=== PATIENT | male | born 1955 | race Hispanic/Latino ===

== ENCOUNTER 2016-08-15 14:23 | Inpatient (IN) | payer MEDICARE, OTHER ==
--- NOTE | 2016-08-15 15:02 | ED PDOC ---
HPI: Psych/Substance Abuse Time Seen by Provider: 08/15/16 14:42 Chief Complaint (Nursing): Psychiatric Evaluation Chief Complaint (Provider): Psychiatric Evaluation History Per: Patient History/Exam Limitations: no limitations Onset/Duration Of Symptoms: Days Current Symptoms Are (Timing): Still Present Suicide/Self Injury Attempted (Context): None Modifying Factor(s): None Associated Symptoms: Agitation Additional Complaint(s): Patent is a 61 year old male with a history of cirrhosis, referred to ED from [facility] for increased confusion and agitation. Patient has had medication adjusted by psychiatry but no improvement. In ED patient notes abdominal pain with distention but denies nausea, vomiting or fever. Past Medical History Reviewed: Historical Data, Nursing Documentation, Vital Signs Vital Signs: Last Vital Signs Temp 98.2 F 08/15/16 14:35 Pulse 76 08/15/16 14:35 Resp 20 08/15/16 14:35 BP 140/68 08/15/16 14:35 Pulse Ox 98 08/15/16 14:35 - Medical History PMH: Alzheimer's Disease, Anemia, Asthma, Bipolar Disorder, CAD, COPD, Diabetes , Fractures (Nasal Bone), Gall Bladder Disease, HTN, Hypercholesterolemia, Hypothyroidism, Paranoia, Chronic Kidney Disease (STAGE 2), Schizophrenia, Seizures - Surgical History Surgical History: Endoscopy - Family History Family History: States: Unknown Family Hx - Living Arrangements Living Arrangements: With Family - Immunization History Hx Tetanus Toxoid Vaccination: Yes Hx Influenza Vaccination: No Hx Pneumococcal Vaccination: No - Home Medications Home Medications: Ambulatory Orders Medication Instructions Recorded Fluticasone/Salmeterol 250/50 1 puff IH Q12 11/18/14 [Advair Diskus] Levothyroxine [Levoxyl] 0.025 mg PO DAILY 11/18/14 Welton Carbonate [Welton 300 mg PO HS 11/18/14 Carbonate 300MG] Propranolol HCl [Propranolol HCl] 10 mg PO BID 11/18/14 Rivastigmine [Exelon] 13.3 mg TD DAILY 11/18/14 Silodosin [Rapaflo] 8 mg PO DAILY 11/18/14 Spironolactone 25 mg PO DAILY 12/31/14 Aspirin [Ecotrin] 81 mg PO DAILY 05/08/16 Benztropine [Benztropine Mesylate] 0.5 mg PO DAILY 05/08/16 Furosemide [Lasix] 20 mg PO DAILY 05/08/16 Glimepiride [amaRYL] 2 mg PO DAILY 05/08/16 Lactulose 10 gm PO BID 05/08/16 Naproxen [Naprosyn] 1 tab PO BID PRN #25 tab 05/08/16 Thiamine [Vitamin B-1] 100 mg PO DAILY 05/08/16 risperiDONE [RisperDAL] 2 mg PO DAILY 05/08/16 Furosemide [Lasix] 20 mg PO DAILY #7 tab 07/03/16 Sulfamethoxazole/Trimethoprim 1 tab PO BID #14 tab 07/03/16 [Bactrim DS 800 mg-160 mg] - Allergies Allergies/Adverse Reactions: Allergies Allergy/AdvReac Type Severity Reaction Status Date / Time atorvastatin calcium Allergy Verified 05/08/16 11:34 [From Lipitor] levofloxacin [From Levaquin] Allergy Verified 05/08/16 11:34 Review of Systems ROS Statement: Except As Marked, All Systems Reviewed And Found Negative Constitutional: Negative for: Fever, Chills Cardiovascular: Negative for: Chest Pain Respiratory: Negative for: Shortness of Breath Gastrointestinal: Positive for: Abdominal Pain. Negative for: Nausea, Vomiting , Diarrhea Neurological: Negative for: Weakness Physical Exam - Reviewed Nursing Documentation Reviewed: Yes Vital Signs Reviewed: Yes - Physical Exam Appears: Positive for: Non-toxic, No Acute Distress Skin: Positive for: Normal Color, Warm Eye Exam: Positive for: Normal appearance Neck: Positive for: Normal, Painless ROM Cardiovascular/Chest: Positive for: Regular Rate, Rhythm. Negative for: Murmur Respiratory: Positive for: Normal Breath Sounds. Negative for: Respiratory Distress Gastrointestinal/Abdominal: Positive for: Bowel Sounds, Distended, Hernia ( umbilical hernia easily reducible ). Negative for: Tenderness Back: Positive for: Normal Inspection Extremity: Positive for: Normal ROM Neurologic/Psych: Positive for: Alert, Oriented - Laboratory Results Result Diagrams: 08/15/16 15:43 08/15/16 15:43 - ECG O2 Sat by Pulse Oximetry: 98 (RA) Pulse Ox Interpretation: Normal Medical Decision Making Medical Decision Making: Time: 1455 Initial impression: Psychiatric evaluation Initial plan: -- EKG -- Alcohol serum -- CMP -- Ammonia -- UDS -- Urine dip -- CBC -- CXR Scribe Attestation: Documented by Lisa Levin acting as a scribe for Jamie Daily MD MD Scribe Attestation: All medical record entries made by the Scribe were at my direction and personally dictated by me. I have reviewed the chart and agree that the record accurately reflects my personal performance of the history, physical exam, medical decision making, and the department course for this patient. I have also personally directed, reviewed, and agree with the discharge instructions and disposition. Disposition - Clinical Impression Clinical Impression: Dehydration, Schizophrenia - Patient ED Disposition Is Patient to be Admitted: Yes - Disposition Disposition Time: 16:33 Condition: FAIR - Pt Status Changed To: Hospital Disposition Of: Observation - POA Present On Arrival: None
[2016-08-15 16:06] LABS: ALCOHOL SERUM < 10 mg/dl (0-10); ALKALINE PHOSPHATASE 189 U/L (38-126); ALT/SGPT 55 U/L (21-72); AST/SGOT 63 U/L (17-59); BILIRUBIN,TOTAL 1.1 mg/dl (0.2-1.3); BLOOD UREA NITROGEN 25 mg/dl (9-20); CALCIUM 8.5 mg/dL (8.4-10.2); CARBON DIOXIDE 20 mmol/L (22-30); CHLORIDE 111 mmol/L (98-107); GFR AFRICAN-AMERICAN > 60; GLUCOSE,RANDOM 185 mg/dL (75-110); SODIUM 143 mmol/l (132-148); TOTAL PROTEIN 6.4 G/DL (6.3-8.2)
[2016-08-15 16:08] LABS: ALB/GLOB RATIO 0.9 (1.0-2.1)
[2016-08-15 16:24] LABS: BASO % 0.2 % (0.0-2.0); EOS % 1.9 % (0.0-4.0); HEMATOCRIT 31.2 % (35.0-51.0); LYMPH # 0.3 K/uL (1.0-4.3); LYMPH % 11.1 % (20.0-40.0); MEAN CELL VOLUME 89.2 fl (80.0-94.0); MEAN CORPUSCULAR HEMOGLOBIN 30.2 pg (27.0-31.0); MEAN CORPUSCULAR HGB CONC 33.8 g/dL (33.0-37.0); MEAN PLATELET VOLUME 9.2 fl (7.2-11.7); MONO # 0.2 K/uL (0.0-0.8); MONO % 7.2 % (0.0-10.0); NEUT % 79.6 % (50.0-75.0); NRBC % 0.1 % (0.0-0.0); RED CELL DISTRIBUTION WIDTH 16.2 % (11.5-14.5); WHITE BLOOD COUNT 2.6 K/uL (4.8-10.8)
--- NOTE | 2016-08-16 08:55 | RAD ---
HISTORY: AMS COMPARISON: No prior. TECHNIQUE: Chest PA and lateral FINDINGS: LUNGS: Prominent lung markings. No evidence of focal infiltrate or consolidation PLEURA: No significant pleural effusion identified. No pneumothorax apparent. CARDIOVASCULAR: Normal. OSSEOUS STRUCTURES: No significant abnormalities. VISUALIZED UPPER ABDOMEN: Normal. OTHER FINDINGS: None. IMPRESSION: No active disease. Baseline study.
[2016-08-16] MEDS ORDERED: Sodium Chloride 0.9% 100 ML ONE (09:04)
[2016-08-16] MEDS ORDERED: Iohexol 300 100 ML IJ ONE (09:04)
--- NOTE | 2016-08-16 09:08 | CP.PCM.CON ---
<Marcos Figueroa - Last Filed: 08/16/16 09:14> History of Present Illness - History of Present Illness History of Present Illness: PGY4 GI Fellow Consult Note Patient is a 61yo male with PMHx significant for Decompensated cirrhosis 2/2 EtOH abuse and HCV (genotype 3 documented previously), Prostate cancer s/p brachytherapy and XRT who presented from detention for increased confusion and agitation. He appears to be somewhat slow in his verbal responses and confused at this time. Currently, he is a poor historian. Per the ED, psychiatry at his detention had adjusted medications but his mentation had not improved and he was sent to the ED for evaluation. Moreover, the patient complains of abdominal pain. He cannot identify a time frame but believes nedra tover the past week or so he has noted worsening abdominal distention/girth and developed diffuse cramping pain. In the past, this has happened to him when he had been constipated and was relieved by BM. He has been passing about 1 BM per day but has not improved. Denies any fever, chills, nausea, vomiting, hematemesis, melena, hematochezia, weight loss. Patient had not followed up with GI as outpatient as requested by his primary care provider. PMHx: See HPI PSHx: Cholecystectomy FHx: Mother - [place] Social: Former EtOH and illicit drug use in his 20s, sober since Endo: EGD - 12/31/14 - Esophageal varices, Portal HTN gastropathy, acute/chronic gastritis Review of Systems - Constitutional Constitutional: absent: Anorexia, Chills, Fever, Malaise - EENT Eyes: absent: Change in Vision Nose/Mouth/Throat: absent: Sore Throat - Cardiovascular Cardiovascular: Dyspnea. absent: Chest Pain, Edema - Respiratory Respiratory: Dyspnea. absent: Cough, Excessive Mucous Production - Gastrointestinal Gastrointestinal: Abdominal Pain, Bloating, Constipation, Cramping. absent: Diarrhea, Heartburn, Hematemesis, Hematochezia, Loose Stools, Melena, Nausea, Odynophagia, Vomiting - Genitourinary Genitourinary: Urinary Incontinence. absent: Dysuria, Urinary Frequency - Musculoskeletal Musculoskeletal: absent: Back Pain, Neck Pain - Integumentary Integumentary: absent: New Lesions, Rash - Neurological Neurological: absent: Dizziness, Numbness, Focal Weakness - Psychiatric Psychiatric: absent: Anxiety, Depression - Endocrine Endocrine: absent: Polydipsia, Polyphagia, Polyuria - Hematologic/Lymphatic Hematologic: absent: Easy Bleeding, Easy Bruising, Lymphadenopathy Past Patient History - Infectious Disease Hx of Infectious Diseases: None - Past Medical History & Family History Past Medical History?: Yes - Past Social History Smoking Status: Light Smoker < 10 Cigarettes Daily - CARDIAC Hx Cardiac Disorders: Yes Hx Hypercholesterolemia: Yes Hx Hypertension: Yes - PULMONARY Hx Respiratory Disorders: Yes Hx Asthma: Yes Hx Chronic Obstructive Pulmonary Disease (COPD): Yes - NEUROLOGICAL Hx Alzheimer's Disease: Yes Hx Seizures: Yes - HEENT Hx HEENT Problems: Yes - RENAL Hx Chronic Kidney Disease: Yes (STAGE 2) - ENDOCRINE/METABOLIC Hx Endocrine Disorders: Yes Hx Diabetes Mellitus Type 2: Yes Hx Hypothyroidism: Yes - HEMATOLOGICAL/ONCOLOGICAL Hx Blood Disorders: Yes Hx Anemia: Yes Hx Hepatitis C: Yes - INTEGUMENTARY Hx Dermatological Problems: No - MUSCULOSKELETAL/RHEUMATOLOGICAL Hx Musculoskeletal Disorders: Yes Hx Falls: Yes Hx Fractures: Yes - GASTROINTESTINAL Hx Gastrointestinal Disorders: Yes Hx Gall Bladder Disease: Yes - GENITOURINARY/GYNECOLOGICAL Hx Genitourinary Disorders: Yes Hx Prostate Cancer: Yes - PSYCHIATRIC Hx Psychophysiologic Disorder: Yes Hx Paranoia: Yes Hx Schizophrenia: Yes Hx Substance Use: No - SURGICAL HISTORY Hx Surgeries: Yes Other/Comment: REPAIR NASL FX PROSTATE SEED IMPLANT - ANESTHESIA Hx Anesthesia: Yes Hx Anesthesia Reactions: No Hx Malignant Hyperthermia: No Meds Allergies/Adverse Reactions: Allergies Allergy/AdvReac Type Severity Reaction Status Date / Time atorvastatin calcium Allergy Verified 05/08/16 11:34 [From Lipitor] levofloxacin [From Levaquin] Allergy Verified 05/08/16 11:34 - Medications Medications: Current Medications Finasteride (Proscar) 5 mg PO DAILY [facility] Furosemide (Lasix) 20 mg PO DAILY [facility] Home Med (Budesonide/Formoterol Fumarate [Symbicort 160-4.5 Mcg Inhaler]) 2 puff IH BID [facility] Home Med (Insulin Glargine, Recombina [Lantus]) 10 unit SC HS [facility] Lactulose (Enulose) 10 gm PO TID [facility] Levothyroxine Sodium (Synthroid) 25 mcg PO DAILY [facility] Nicotine (Nicoderm Cq) 1 patch TD DAILY [facility] Pantoprazole Sodium (Protonix Ec Tab) 40 mg PO DAILY [facility] Propranolol HCl (Inderal) 10 mg PO TID [facility] Risperidone (Risperdal Tab) 2 mg PO HS [facility] Spironolactone (Aldactone) 25 mg PO DAILY [facility] Tamsulosin HCl (Flomax) 0.4 mg PO HS [facility] Physical Exam - Constitutional Appears: No Acute Distress, Confused - Eye Exam Eye Exam: EOMI, PERRL - ENT Exam ENT Exam: Mucous Membranes Moist - Respiratory Exam Respiratory Exam: Clear to Auscultation Bilateral. absent: Rales, Rhonchi, Wheezes - Cardiovascular Exam Cardiovascular Exam: RRR, +S1, +S2 - GI/Abdominal Exam GI & Abdominal Exam: Distended, Firm, Hernia (umbilical), Normal Bowel Sounds, Soft. absent: Guarding, Organomegaly, Rigid - Extremities Exam Extremities exam: Positive for: pedal edema Additional comments: 2+ B/L LE edema - Neurological Exam Neurological exam: Alert, Oriented x3 - Psychiatric Exam Psychiatric exam: Normal Affect, Normal Mood - Skin Skin Exam: Dry, Warm Results - Vital Signs Recent Vital Signs: Last Vital Signs Temp 98.1 F 08/16/16 08:47 Pulse 82 08/16/16 08:47 Resp 20 08/16/16 08:47 BP 136/62 08/16/16 08:47 Pulse Ox 97 08/16/16 08:47 - Labs Result Diagrams: 08/15/16 15:43 08/15/16 15:43 Assessment & Plan - Assessment and Plan (Free Text) Assessment: Patient is a 61yo male with PMHx significant for Decompensated cirrhosis 2/2 EtOH abuse and HCV (genotype 3 documented previously), Prostate cancer s/p brachytherapy and XRT who presented from detention for increased confusion and agitation. He also c/o abdominal distention. -Decompensated cirrhosis 2/2 EtOH abuse (previously) and HCV (genotype 3) -HCV -H/O esophageal varices -H/O prostate cancer Plan: -Increase lactulose to 30gm PO TID -Check abdominal U/S, eval for ascites, R/O HCC -If ascites present, recommend paracentesis - check cell count, albumin, C&S -Replace albumin if >5L removed -Pt on Lasix/Aldactone, will not adjust at this time until paracentesis performed - then likely increase to 40/100mg -Check HCV viral load and reflex genotype, consider outpatient initiation of treatment -MELD labs pending, previously 11 -Last EGD performed in 2014, would benefit from repeat - eval varices - Date & Time Date: 08/16/16 Time: 09:24 <Cata Garcia MD - Last Filed: 08/16/16 17:37> Meds - Medications Medications: Current Medications Dextrose (Glutose 15) 0 gm PO ONCE PRN; Protocol PRN Reason: Hypoglycemia Protocol Dextrose (Dextrose 50% Inj) 0 ml IV STAT PRN; Protocol PRN Reason: Hyglycemia Protocol Finasteride (Proscar) 5 mg PO DAILY [facility] Last Admin: 08/16/16 11:47 Dose: 5 mg Furosemide (Lasix) 20 mg PO DAILY [facility] Last Admin: 08/16/16 12:02 Dose: 20 mg Glucagon (Glucagen Diagnostic Kit) 0 mg IM STAT PRN; Protocol PRN Reason: Hypoglycemia Protocol Insulin Detemir (Levemir) 10 units SC HS [facility] Insulin Human Regular (Humulin R) 0 units SC ACHS [facility] PRN Reason: Protocol Last Admin: 08/16/16 17:18 Dose: Not Given Lactulose (Enulose) 30 gm PO TID [facility] Last Admin: 08/16/16 17:15 Dose: 30 gm Levothyroxine Sodium (Synthroid) 25 mcg PO 0630 [facility] Last Admin: 08/16/16 11:47 Dose: 25 mcg Nicotine (Nicoderm Cq) 1 patch TD DAILY [facility] Last Admin: 08/16/16 11:46 Dose: 1 patch Pantoprazole Sodium (Protonix Ec Tab) 40 mg PO DAILY [facility] Last Admin: 08/16/16 12:02 Dose: 40 mg Propranolol HCl (Inderal) 10 mg PO TID [facility] Last Admin: 08/16/16 17:18 Dose: Not Given Risperidone (Risperdal Tab) 2 mg PO HS [facility] Fluticasone/Salmeterol (Advair Diskus 250/50) 1 puff IH Q12 [facility] Last Admin: 08/16/16 11:45 Dose: 1 puff Spironolactone (Aldactone) 25 mg PO DAILY [facility] Last Admin: 08/16/16 11:48 Dose: 25 mg Tamsulosin HCl (Flomax) 0.4 mg PO HS [facility] Results - Vital Signs Recent Vital Signs: Last Vital Signs Temp 98.6 F 08/16/16 16:47 Pulse 59 L 08/16/16 17:18 Resp 20 08/16/16 16:47 BP 133/68 08/16/16 16:47 Pulse Ox 97 08/16/16 16:47 - Labs Result Diagrams: 08/16/16 09:10 08/16/16 09:10 Attending/Attestation - Attestation I have personally seen and examined this patient.: Yes I have fully participated in the care of the patient.: Yes I have reviewed all pertinent clinical information: Yes Notes (Text): 08/16/16 17:30 Patient seen and examined with GI fellow on rounds this am. This is a 61yo male with PMHx significant for decompensated cirrhosis 2/2 EtOH abuse and HCV ( genotype 3 documented previously), prostate cancer s/p brachytherapy and XRT who presented from detention for increased confusion and agitation likely due to HE and new onset increasing abdominal girth. Etiology for decompensation unknown but likely constipation. Prudent to rule out PV thrombosis on doppler sonogram and triple phase CT scan to rule out HCC. Needs ascitic tap for diagnostic and therapeutic tap - to be sent for cytology, culture, albumin and total protein. Will need albumin replacement if more than 5lts removed. Check HCV viral load and genotype and will plan on treating as outpatient. Needs updated outpatient EGD for variceal screening and colonoscopy. Daily labs for electrolytes and CBC. Daily lactulose - titrate to 2 bm/day
[2016-08-16] MEDS ORDERED: Lactulose 10 gm/15 ml Syrup PO SCH ×2 (09:15→11:58)
[2016-08-16] MEDS ORDERED: Glucagon Recombinant 1 mg Inj IM PRN (09:23)
[2016-08-16] MEDS ORDERED: Dextrose 50% SYRINGE Inj (50 ml) IV PRN (09:23)
[2016-08-16 09:29] LABS: HEMATOCRIT 33.4 % (35.0-51.0); MEAN CELL VOLUME 89.9 fl (80.0-94.0); MEAN CORPUSCULAR HEMOGLOBIN 29.8 pg (27.0-31.0); MEAN CORPUSCULAR HGB CONC 33.2 g/dL (33.0-37.0); RED CELL DISTRIBUTION WIDTH 16.7 % (11.5-14.5); WHITE BLOOD COUNT 2.5 K/uL (4.8-10.8)
[2016-08-16 09:43] LABS: ALB/GLOB RATIO 0.9 (1.0-2.1); ALKALINE PHOSPHATASE 187 U/L (38-126); ALT/SGPT 57 U/L (21-72); AST/SGOT 70 U/L (17-59); BILIRUBIN,TOTAL 1.5 mg/dl (0.2-1.3); BLOOD UREA NITROGEN 23 mg/dl (9-20); CALCIUM 8.5 mg/dL (8.4-10.2); CARBON DIOXIDE 21 mmol/L (22-30); CHLORIDE 109 mmol/L (98-107); GFR AFRICAN-AMERICAN > 60; GLUCOSE,RANDOM 268 mg/dL (75-110); POTASSIUM 4.4 MMOL/L (3.6-5.0); SODIUM 143 mmol/l (132-148); TOTAL PROTEIN 6.5 G/DL (6.3-8.2)
[2016-08-16] MEDS ORDERED: Gadodiamide 287 MG/ML VIAL (15ML) IV ONE (10:28)
--- NOTE | 2016-08-16 11:17 | CP.PCM.CON ---
History of Present Illness - History of Present Illness History of Present Illness: Psychiatry consult called for evaluation of schizophrenia CC: "I came for stomach pain." HPI: 61yo male with PMHx significant for Decompensated cirrhosis 2/2 EtOH abuse and HCV , Prostate cancer s/p brachytherapy and XRT who presented from [facility] for increased confusion and agitation, now improving. Per the ED, psychiatry at his halfway had adjusted medications but his mentation had not improved and he was sent to the ED for evaluation. Patient reports that he came in for stomach pain and currently reports having a headache. He states that he has chronic auditory hallucinations of his mother and father talking to him, but states that he chronically hears them, does not find them disruptive and they are not command in nature. He denies depression/anxiety/rené/suicidal or homicidal ideation. He reports that his Risperdal was increased to 2 mg PO HS a few days ago and does not believe it needs to be further increased at this time. He does not want acute inpatient psychiatric admission. PPHx: History of multiple psychiatric admissions, last two weeks ago at [facility]. He denies suicide attempts. PMHx: Decompensated cirrhosis 2/2 EtOH abuse and HCV, Prostate cancer s/p brachytherapy and XRT PSHx: Cholecystectomy FHx: Mother - [place], +Aunt and uncle w/ schizophrenia Social: Former EtOH and illicit drug use in his 20s, sober since All: Atorvastatin, Levofloxacin MSE: A + O x 3, good eye contact, psychomotor normal, no acute distress, affect - broad/full range, mood "okay", thought process-linear/coherent, thought content-no delusions, chronic intermittent auditory hallucinations (not presently hearing them), no VH, no SI/HI, insight/judgment fair Impression: 61yo male with PMHx significant for Decompensated cirrhosis 2/2 EtOH abuse and HCV , Prostate cancer s/p brachytherapy and XRT, w/ h/o schizophrenia presented with increased confusion and agitation, likely secondary to acute medical issues rather than exacerbation of psychiatric illness. Patient does not need acute psychiatric hospitalization at this time as he seems to be at his baseline psychiatrically and denies acute symptoms other than his chronic intermittent auditory hallucinations, which he is not having at present. Recommendations: -Continue Risperdal 2 mg PO HS -Continue outpatient psychiatric follow-up -No acute psychiatric admission or 1:1 needed at this time as the patient is not an acute danger to himself or others -Re-consult with further questions, Dr. Clark [phone] Past Patient History - Infectious Disease Hx of Infectious Diseases: None - Past Medical History & Family History Past Medical History?: Yes - Past Social History Smoking Status: Light Smoker < 10 Cigarettes Daily - CARDIAC Hx Cardiac Disorders: Yes Hx Hypercholesterolemia: Yes Hx Hypertension: Yes - PULMONARY Hx Respiratory Disorders: Yes Hx Asthma: Yes Hx Chronic Obstructive Pulmonary Disease (COPD): Yes - NEUROLOGICAL Hx Alzheimer's Disease: Yes Hx Seizures: Yes - HEENT Hx HEENT Problems: Yes - RENAL Hx Chronic Kidney Disease: Yes (STAGE 2) - ENDOCRINE/METABOLIC Hx Endocrine Disorders: Yes Hx Diabetes Mellitus Type 2: Yes Hx Hypothyroidism: Yes - HEMATOLOGICAL/ONCOLOGICAL Hx Blood Disorders: Yes Hx Anemia: Yes Hx Hepatitis C: Yes - INTEGUMENTARY Hx Dermatological Problems: No - MUSCULOSKELETAL/RHEUMATOLOGICAL Hx Musculoskeletal Disorders: Yes Hx Falls: Yes Hx Fractures: Yes - GASTROINTESTINAL Hx Gastrointestinal Disorders: Yes Hx Gall Bladder Disease: Yes - GENITOURINARY/GYNECOLOGICAL Hx Genitourinary Disorders: Yes Hx Prostate Cancer: Yes - PSYCHIATRIC Hx Psychophysiologic Disorder: Yes Hx Paranoia: Yes Hx Schizophrenia: Yes Hx Substance Use: No - SURGICAL HISTORY Hx Surgeries: Yes Other/Comment: REPAIR NASL FX PROSTATE SEED IMPLANT - ANESTHESIA Hx Anesthesia: Yes Hx Anesthesia Reactions: No Hx Malignant Hyperthermia: No Meds Allergies/Adverse Reactions: Allergies Allergy/AdvReac Type Severity Reaction Status Date / Time atorvastatin calcium Allergy Verified 05/08/16 11:34 [From Lipitor] levofloxacin [From Levaquin] Allergy Verified 05/08/16 11:34 - Medications Medications: Current Medications Dextrose (Glutose 15) 0 gm PO ONCE PRN; Protocol PRN Reason: Hypoglycemia Protocol Dextrose (Dextrose 50% Inj) 0 ml IV STAT PRN; Protocol PRN Reason: Hyglycemia Protocol Finasteride (Proscar) 5 mg PO DAILY [facility] Furosemide (Lasix) 20 mg PO DAILY [facility] Glucagon (Glucagen Diagnostic Kit) 0 mg IM STAT PRN; Protocol PRN Reason: Hypoglycemia Protocol Insulin Detemir (Levemir) 10 units SC HS [facility] Insulin Human Regular (Humulin R) 0 units SC ACHS [facility] PRN Reason: Protocol Lactulose (Enulose) 30 gm PO TID [facility] Levothyroxine Sodium (Synthroid) 25 mcg PO 0630 [facility] Nicotine (Nicoderm Cq) 1 patch TD DAILY [facility] Pantoprazole Sodium (Protonix Ec Tab) 40 mg PO DAILY [facility] Propranolol HCl (Inderal) 10 mg PO TID [facility] Risperidone (Risperdal Tab) 2 mg PO HS [facility] Fluticasone/Salmeterol (Advair Diskus 250/50) 1 puff IH Q12 [facility] Spironolactone (Aldactone) 25 mg PO DAILY [facility] Tamsulosin HCl (Flomax) 0.4 mg PO HS [facility] Results - Vital Signs Recent Vital Signs: Last Vital Signs Temp 98.1 F 08/16/16 08:47 Pulse 82 08/16/16 08:47 Resp 20 08/16/16 08:47 BP 136/62 08/16/16 08:47 Pulse Ox 97 08/16/16 08:47 - Labs Result Diagrams: 08/16/16 09:10 08/16/16 09:10 Labs: Laboratory Results - last 24 hr 08/16/16 09:10 WBC 2.5 L RBC 3.72 L Hgb 11.1 L Hct 33.4 L MCV 89.9 MCH 29.8 MCHC 33.2 RDW 16.7 H Plt Count 39 L PT 13.4 H INR 1.29 H Sodium 143 Potassium 4.4 Chloride 109 H Carbon Dioxide 21 L Anion Gap 17 BUN 23 H Creatinine 1.1 Est GFR ( Amer) > 60 Est GFR (Non-Af Amer) > 60 Random Glucose 268 H Calcium 8.5 Total Bilirubin 1.5 H AST 70 H ALT 57 Alkaline Phosphatase 187 H Total Protein 6.5 Albumin 3.0 L Globulin 3.4 Albumin/Globulin Ratio 0.9 L Assessment & Plan - Assessment and Plan (Free Text) Assessment: Patient evaluated, chart reviewed, 55 min
[2016-08-16] MEDS: Fluticasone-Salmeterol 250-50mcg Diskus IH SCH ×2 (11:45→22:15)
[2016-08-16] MEDS: Levothyroxine 25 MCG TAB PO SCH (11:47)
[2016-08-16] MEDS: Insulin Regular 100 units/ml SC SCH ×3 (11:49→22:22)
[2016-08-16] MEDS: Pantoprazole 40 mg EC Tab PO SCH (12:02)
--- NOTE | 2016-08-16 12:11 | CT ---
PROCEDURE: CT Chest with and without contrast HISTORY: lung mass COMPARISON: None. TECHNIQUE: Contiguous axial images were obtained through the chest before and after with intravenous contrast enhancement. Sagittal and coronal reconstructions were performed. IV contrast: 95 mL Omnipaque 300 Radiation dose (DLP): 930.24 mGy-cm. FINDINGS: LUNGS: There is 3.1 x 2.2 centimeter enhancing soft tissue mass lesion with spiculated border at the inferior anterior aspect of the right lung upper lobe. Findings highly suspicious for malignant neoplasm. [id number] emphysematous changes predominant in the upper lobes are also noted. MEDIASTINUM: Unremarkable thoracic aorta. No aneurysm or dissection. Normal sized heart. Main pulmonary artery unremarkable. No vascular congestion. Right hilar lymphadenopathy are noted. Mildly enlarged precarinal lymph node is also noted. There is [id number]-is-sbaelcdy diffuse esophageal mucosal thickening. Distal periesophageal varices are also seen. PLEURA: No pleural fluid. No pneumothorax. BONES: No fracture. No destructive lesion. UPPER ABDOMEN: Cirrhotic changes are noted associated with ascites and splenomegaly suggestive of portal hypertension. Multiple collateral vessels seen in the upper abdomen also related to portal hypertension and portal systemic shunts. OTHER FINDINGS: None. IMPRESSION: 3.1 centimeter enhancing pleural-based mass lesion with spiculated border seen at the inferior anterior aspect of the right lung upper lobe highly suspicious for malignant neoplasm. Mild lymphadenopathy at the right hilum. Cirrhosis with findings consistent with portal hypertension as described above. [id number] emphysema predominant in the upper lobes. [id number] diffuse esophageal mucosal thickening.
--- NOTE | 2016-08-16 12:30 | MRI ---
PROCEDURE: MRI BRAIN WITH AND WITHOUT CONTRAST HISTORY: ams COMPARISON: None. TECHNIQUE: Multiplanar, multisequence MR images of the brain were obtained with and without intravenous contrast enhancement. FINDINGS: HEMORRHAGE: None DWI: No evidence of an acute or early subacute infarction. BRAIN PARENCHYMA: No mass,mass effect or edema. There are scattered nonspecific foci of hyperintense T2 and FLAIR signal seen in the subcortical and periventricular white matter. Findings suggestive but nonspecific for chronic microvascular ischemic disease. ENHANCEMENT: No abnormal intracranial enhancement. VENTRICLES: Unremarkable. No hydrocephalus. CRANIUM: Unremarkable. ORBITS: Grossly unremarkable. PARANASAL SINUSES/MASTOIDS: Mild sinuses mucosal thickening. VASCULAR SYSTEM: Skull base flow voids intact. OTHER FINDINGS: None . IMPRESSION: No evidence of acute infarct or acute intracranial pathology. No evidence of mass lesion mass effect or midline shift. Scattered nonspecific foci of hyperintense T2 and FLAIR signal seen in the white matter suggestive but nonspecific for chronic microvascular ischemic disease. Yogb-bh-sjjmjcuk atrophy.
--- NOTE | 2016-08-16 13:58 | CARD ---
APPROVED REPORT EKG Measurement Heart [id number] <Conclusion> Sinus rhythm with marked sinus arrhythmia with occasional premature ventricular complexes Left axis deviation Abnormal ECG
[2016-08-16] MEDS: Lactulose 10 gm/15 ml Syrup PO SCH (17:15)
--- NOTE | 2016-08-16 19:06 | CON ---
DATE: 08/16/2016 CHIEF COMPLAINT: Confusion. HISTORY OF PRESENT ILLNESS: This is a 61-year-old man with past medical history of decompensated cir rhosis secondary to ETOH abuse and hepatitis C virus genotype 3 documented previously, prostate cance r status post brachytherapy and radiation therapy, history of schizophrenia who presented from a grou home for increased confusion and agitation. He is someone slow in his verbal responses and confuse d at times. He has also been agitated, and according to the sister who is at bedside, has been steal ing as well. He is alert, oriented to person, place, month and year. Poor attention span, slow thou ght process. He has good eye contact, but he said he has been having some auditory hallucinations. Psychiatry has seen the patient and mentions that his chronic intermittent auditory hallucinations is secondary to his underlying medical issues rather than exacerbation of psychiatric illness. I feel field there is a psychiatric component to this whole issue, which his psychiatric medications need to be adjusted. He is slightly dehydrated and has been having fluctuating elevated blood sugars. His albumin is low indicating poor p.o. intake. Otherwise, his blood pressures are stable. GI is on boa rd. Note reviewed and appreciated. He is on lactulose, as well as Lasix and Aldactone, which is on board. His brain MRI showed no acute intracranial abnormalities, just chronic ischemic changes. He had a CT scan of his chest, which showed a 3.1 cm enhancing pleural based mass lesion with spiculated border seen in the inferior anterior aspect of the right upper lung suspicious for malignant neoplas m. He is a chronic smoker. There is mild to moderate emphysema in the upper lobes. PAST MEDICAL HISTORY: History of schizophrenia, history of decompensated liver cirrhosis secondary t o ETOH abuse and hepatitis C genotype 3, history of prostate cancer status post brachytherapy and rad iation therapy. REVIEW OF SYSTEMS: A 14-point review of systems is negative except for the HPI. FAMILY HISTORY: Noncontributory. ALLERGIES: ALLERGIC TO ATORVASTATIN, CALCIUM AND LEVOFLOXICIN. FAMILY HISTORY: Noncontributory. SOCIAL HISTORY: Still a chronic smoker. Denies any ETOH abuse or illicit drug use at this time, exc ept for some marijuana occasional usage. CURRENT MEDICATIONS: Reviewed via nurse's reconciliation sheet. PHYSICAL EXAMINATION: VITAL SIGNS: Temperature 97.9, pulse rate of 80, blood pressure 141/65, respiratory rate of 16, oxyg en 98% on room air. GENERAL: The patient is sitting up in bed in no acute distress. HEENT: Atraumatic, normocephalic. PERRLA. Extraocular muscles intact. NECK: Supple, no JVD, no adenopathy noted. LUNGS: Clear to auscultation. No adventitious sounds. HEART: S1, S2, normal rate and rhythm. No murmurs, rubs, or gallops. ABDOMEN: Distended, firm, has an umbilical hernia. Bowel sounds are present. EXTREMITIES: No clubbing, no cyanosis, has 2+ bilateral lower extremity edema. NEUROLOGIC: The patient is alert, oriented to person, place, month and year. Recall after 5 minutes is 1/3. Poor attention span, slow thought process, has mild disorganized thoughts. Cranial nerves II through XII are intact. MOTOR: Slight increased tone throughout. Moves all extremities equally. Toes are downgoing bilater ally, no pronator drift seen. SENSORY: Decreased light touch and pinprick up to the calves bilaterally. Decreased vibration of th e toes. COORDINATION: Lnomnf-iw-aopp intact and there is no asterixis. No tremors present. Gait is slightl y wide based. LABORATORIES: Sodium is 143, potassium 4.4, chloride of 109, carbon dioxide 21, BUN of 23, creatinin e of 1.1. Random glucose of 268. ASSESSMENT AND PLAN: This is a 61-year-old man with past medical history of decompensated liver cirr hosis secondary to ETOH abuse as well as hepatitic C genotype 3, history of prostate cancer status po st brachytherapy and radiation therapy, possible schizophrenia, who has been having auditory hallucin ations, frequent agitation and more confusional episodes than his baseline. I feel like his confusio n is acute on chronic delirium with cognitive impairment from his underlying decompensating liver dis ease. I recommend: 1. Psychiatric adjustments of his medications such as Risperdal, which he is on 2 mg p.o. at bedtime . 2. Continue Aldactone 25 mg p.o. t.i.d. and propranolol p.o. t.i.d. for history of recent ____ _ and his decompensating liver disease. 3. Continue lactulose 30 mg p.o. t.i.d. for his decompensating liver disease. His ammonia level is currently normal. 4. Continue with current present medical management and psychiatric management. No further neurolog ical workup needed at this time. Jamil Vo MD cc: [phone] TT: 08/16/2016 19:05:12 Confirmation # [id number] Dictation # [id number] mn
[2016-08-16] MEDS: Insulin Detemir 100 Units/ml Inj SC SCH (22:22)
[2016-08-17] MEDS: Levothyroxine 25 MCG TAB PO SCH (06:57)
[2016-08-17] MEDS: Insulin Regular 100 units/ml SC SCH ×4 (07:24→23:25)
[2016-08-17 08:13] LABS: HEMATOCRIT 29.8 % (35.0-51.0); MEAN CELL VOLUME 89.2 fl (80.0-94.0); MEAN CORPUSCULAR HEMOGLOBIN 30.1 pg (27.0-31.0); MEAN CORPUSCULAR HGB CONC 33.7 g/dL (33.0-37.0); RED CELL DISTRIBUTION WIDTH 16.2 % (11.5-14.5); WHITE BLOOD COUNT 2.1 K/uL (4.8-10.8)
[2016-08-17 08:27] LABS: ALB/GLOB RATIO 0.8 (1.0-2.1); ALKALINE PHOSPHATASE 164 U/L (38-126); ALT/SGPT 55 U/L (21-72); AST/SGOT 63 U/L (17-59); BILIRUBIN,TOTAL 1.1 mg/dl (0.2-1.3); BLOOD UREA NITROGEN 21 mg/dl (9-20); CALCIUM 8.6 mg/dL (8.4-10.2); CARBON DIOXIDE 22 mmol/L (22-30); CHLORIDE 112 mmol/L (98-107); GFR AFRICAN-AMERICAN > 60; GLUCOSE,RANDOM 97 mg/dL (75-110); POTASSIUM 3.9 MMOL/L (3.6-5.0); SODIUM 144 mmol/l (132-148); TOTAL PROTEIN 5.9 G/DL (6.3-8.2)
--- NOTE | 2016-08-17 08:54 | PN ---
DATE: 08/16/2016 The patient is seen and examined. Interim events noted. Consults noted and appreciated. Neurology and hepatology consult and intervention noted and appreciated. The patient remains on regular medica l floor. The patient feels okay. No specific complaint, no chest pain or shortness of breath. Abdo coral symptoms are essentially unchanged. PHYSICAL EXAMINATION: GENERAL: The patient is in no acute distress. VITAL SIGNS: Stable. HEART: S1, S2 normal, regular. LUNGS: Good bilateral air exchange. ABDOMEN: Soft, nontender. Abdominal exam does not reveal any sign of any acute abdomen. No guardin g, no rigidity, no rebound, although the patient does have ascites. EXTREMITIES: No edema, no calf swelling, no tenderness, no acute ischemia. CENTRAL NERVOUS SYSTEM: Essentially unchanged. DIAGNOSTIC DATA: Available diagnostic data reviewed. CAT scan shows 3-cm peripheral right lung anterior upper lobe mass, suspicious for malignancy. Resul ts discussed with patient. PLAN: As ordered. Burke Harris MD cc: [id number] TT: 08/17/2016 08:54:38 Confirmation # [id number] Dictation # [id number] shankar
--- NOTE | 2016-08-17 09:37 | US ---
HISTORY: abdominal distention, suspect ascites in the COMPARISON: None. TECHNIQUE: Sonographic evaluation of the abdomen. FINDINGS: LIVER: Measures 16.5 cm. Variable echogenicity of the liver parenchyma. Nodular contour to the liver without focal mass. Findings consistent with cirrhosis. GALLBLADDER: Status post cholecystectomy. No abnormality is seen in the gallbladder fossa. COMMON BILE DUCT: Measures 4.9 mm. No stones. No dilatation. PANCREAS: Unremarkable as visualized. No mass. No ductal dilatation. RIGHT KIDNEY: Measures 3.8 x 9.6cm. Normal echogenicity. No calculus, mass, or hydronephrosis.Incidental finding(s): Simple cyst lower pole 1.3 x 1.4 cm. LEFT KIDNEY: Measures 11.2 x 4cm. Normal echogenicity. No calculus, mass, or hydronephrosis.Incidental finding(s): Simple cyst 1.6 x 1.7 cm lower pole SPLEEN: Splenomegaly. Orthogonal measurements 8.1 x 8.3 x 20.1 cm. AORTA: No aneurysmal dilatation. IVC: Unremarkable. OTHER FINDINGS: Intra-abdominal ascites IMPRESSION: Findings highly suggestive of cirrhosis/portal hypertension based on liver echogenicity and contour. Massive splenomegaly. Incompletely visualized intra-abdominal ascites.
[2016-08-17] MEDS: Fluticasone-Salmeterol 250-50mcg Diskus IH SCH ×2 (10:04→21:55)
[2016-08-17] MEDS: Pantoprazole 40 mg EC Tab PO SCH (10:07)
--- NOTE | 2016-08-17 10:07 | CON ---
DATE: 08/17/2016 The patient is a 61-year-old male referred by Dr. Harris for pulmonary consultation because of a right lung mass, but has a history of decompensated cirrhosis of the liver due to alcohol use and hepatitis C. He was found to have a right lung mass on chest x-ray and CT scan of the chest. He presently is alert and oriented. PAST MEDICAL HISTORY: Schizophrenia, cirrhosis of the liver, and hepatitis C. FAMILY HISTORY: Noncontributory. SOCIAL HISTORY: He continues to drink alcohol and smoke even though he denies using alcohol recently . PHYSICAL EXAMINATION: GENERAL: The patient is alert, awake, and oriented. VITAL SIGNS: Stable. HEENT: Mouth shows fair hygiene. NECK: JVP flat. LUNGS: Fair aeration bilaterally. HEART: S1, S2. ABDOMEN: Obese, distended with ascites. EXTREMITIES: Positive pitting pedal edema. CENTRAL NERVOUS SYSTEM: Grossly intact. LABORATORY DATA: Remarkable for CT scan of the chest compatible with a 3.1 cm x 2.2 cm soft tissue m ass, spiculated borders in right upper lobe suspicious for malignancy. WBC 2.1, hemoglobin 10.1, platelet count 39,000. Sodium 144, potassium 3.9, BUN 21, creatinine 1.1. IMPRESSION: Right upper lobe spiculated mass, probably malignant, cirrhosis of the liver, history of hepatitis C, history of schizophrenia. PLAN: CT-guided needle biopsy of lung mass, rule out malignancy. The patient has thrombocytopenia, so that needs to be corrected or appropriately treated prior to biopsy of lung mass. Case was discus sed with Dr. Harris. We will discuss with interventional radiology. ____ biopsy was clinically stable . We will continue to follow with you. Amol Escobar MD cc: [phone] TT: 08/17/2016 10:07:03 Confirmation # [id number] Dictation # [id number] shankar
[2016-08-17] MEDS: Lactulose 10 gm/15 ml Syrup PO SCH ×3 (10:12→16:59)
--- NOTE | 2016-08-17 11:54 | CP.PCM.PN ---
Subjective - Date & Time of Evaluation Date of Evaluation: 08/17/16 Time of Evaluation: 11:50 - Subjective Subjective: RFV: Cirrhosis S: No acute events. C/o abdominal distention. No confusion. NO asterixis. No bleeding or fever. Tolerating diet. had bm Objective - Vital Signs/Intake and Output Vital Signs (last 24 hours): Temp Pulse Resp BP Pulse Ox 97.8 F 68 20 111/63 98 08/17/16 08:07 08/17/16 10:09 08/17/16 08:07 08/17/16 10:10 08/17/16 08:07 - Medications Medications: Current Medications Dextrose (Glutose 15) 0 gm PO ONCE PRN; Protocol PRN Reason: Hypoglycemia Protocol Dextrose (Dextrose 50% Inj) 0 ml IV STAT PRN; Protocol PRN Reason: Hyglycemia Protocol Finasteride (Proscar) 5 mg PO DAILY [facility] Last Admin: 08/17/16 10:05 Dose: 5 mg Furosemide (Lasix) 20 mg PO DAILY [facility] Last Admin: 08/17/16 10:10 Dose: 20 mg Glucagon (Glucagen Diagnostic Kit) 0 mg IM STAT PRN; Protocol PRN Reason: Hypoglycemia Protocol Insulin Detemir (Levemir) 10 units SC [facility] Last Admin: 08/16/16 22:22 Dose: 10 u Insulin Human Regular (Humulin R) 0 units SC [facility] PRN Reason: Protocol Last Admin: 08/17/16 07:24 Dose: Not Given Lactulose (Enulose) 30 gm PO TID [facility] Last Admin: 08/17/16 10:12 Dose: 30 gm Levothyroxine Sodium (Synthroid) 25 mcg PO 0630 [facility] Last Admin: 08/17/16 06:57 Dose: 25 mcg Nicotine (Nicoderm Cq) 1 patch TD DAILY [facility] Last Admin: 08/17/16 10:07 Dose: 1 patch Pantoprazole Sodium (Protonix Ec Tab) 40 mg PO DAILY [facility] Last Admin: 08/17/16 10:07 Dose: 40 mg Propranolol HCl (Inderal) 10 mg PO TID [facility] Last Admin: 08/17/16 10:09 Dose: 10 mg Risperidone (Risperdal Tab) 2 mg PO HS [facility] Last Admin: 08/16/16 22:20 Dose: 2 mg Fluticasone/Salmeterol (Advair Diskus 250/50) 1 puff IH Q12 [facility] Last Admin: 08/17/16 10:04 Dose: 1 puff Spironolactone (Aldactone) 25 mg PO DAILY [facility] Last Admin: 08/17/16 10:08 Dose: 25 mg Tamsulosin HCl (Flomax) 0.4 mg PO HS [facility] Last Admin: 08/16/16 22:19 Dose: 0.4 mg - Labs Labs: 08/17/16 06:50 08/17/16 06:50 PT 13.4 SECONDS (9.6-11.2) H 08/16/16 09:10 INR 1.29 (0.92-1.08) H 08/16/16 09:10 - Constitutional Appears: No Acute Distress, Chronically Ill - Head Exam Head Exam: ATRAUMATIC, NORMOCEPHALIC - Eye Exam Eye Exam: Normal appearance - ENT Exam ENT Exam: Mucous Membranes Moist, Normal Oropharynx - Respiratory Exam Respiratory Exam: NORMAL BREATHING PATTERN. absent: Wheezes, Respiratory Distress - Cardiovascular Exam Cardiovascular Exam: +S1, +S2 - GI/Abdominal Exam GI & Abdominal Exam: Distended, Soft. absent: Guarding, Tenderness - Neurological Exam Neurological Exam: Alert, Oriented x3 Assessment and Plan - Assessment and Plan (Free Text) Assessment: 61 year old male with history of decompensated cirrhosis 2/2 EtOH abuse and HCV , prostate cancer s/p brachytherapy and XRT admitted with confusion and agitation, and increased abdominal girth. 1. Cirrhosis 2. Ascites 3. Hepatic encephalopathy Plan: -recommend IR guided LV paracentesis -send fluid for albumin, TP, cell count/diff, and culture -recommend triple phase CT to r/o HCC -give albumin 25 g per 3 liters removed above 5 liters total -recommend low sodium diet -will start diuretics after paracentesis -continue lactulose, titrate to 2-3 bm per day -outpatient egd/colon recommended -await HCV VL/GT
[2016-08-17] MEDS: Insulin Detemir 100 Units/ml Inj SC SCH (23:50)
[2016-08-18 00:51] LABS: HCV RNA QN PCR IU/ML 4644032 IU/mL (<15); HCV RNA QN PCR LOG IU/ML 6.67 log IU/mL (<1.18)
[2016-08-18 08:02] LABS: HEMATOCRIT 29.7 % (35.0-51.0); MEAN CORPUSCULAR HEMOGLOBIN 29.7 pg (27.0-31.0); RED CELL DISTRIBUTION WIDTH 16.2 % (11.5-14.5); WHITE BLOOD COUNT 2.4 K/uL (4.8-10.8)
[2016-08-18 08:07] LABS: ALB/GLOB RATIO 0.8 (1.0-2.1); ALKALINE PHOSPHATASE 143 U/L (38-126); ALT/SGPT 55 U/L (21-72); AST/SGOT 68 U/L (17-59); BILIRUBIN,TOTAL 1.1 mg/dl (0.2-1.3); BLOOD UREA NITROGEN 22 mg/dl (9-20); CALCIUM 8.5 mg/dL (8.4-10.2); CARBON DIOXIDE 22 mmol/L (22-30); CHLORIDE 110 mmol/L (98-107); GFR AFRICAN-AMERICAN > 60; GLUCOSE,RANDOM 164 mg/dL (75-110); POTASSIUM 4.5 MMOL/L (3.6-5.0); SODIUM 141 mmol/l (132-148); TOTAL PROTEIN 5.9 G/DL (6.3-8.2)
[2016-08-18] MEDS: Insulin Regular 100 units/ml SC SCH ×4 (08:13→23:10)
[2016-08-18] MEDS: Levothyroxine 25 MCG TAB PO SCH (08:16)
[2016-08-18] MEDS: Fluticasone-Salmeterol 250-50mcg Diskus IH SCH ×2 (08:45→21:29)
[2016-08-18] MEDS: Lactulose 10 gm/15 ml Syrup PO SCH ×3 (08:46→17:06)
[2016-08-18] MEDS: Pantoprazole 40 mg EC Tab PO SCH (08:49)
--- NOTE | 2016-08-18 08:52 | PN ---
DATE: 08/18/2016 The patient seen and examined. Interim events noted. Consults noted, appreciated. Pulmonary and ga stroenterology followup noted and appreciated. Case discussed with interventional radiologist. The patient feels okay. No specific complaint. No chest pain, no shortness of breath. PHYSICAL EXAMINATION: GENERAL: The patient is in no acute distress. VITAL SIGNS: Stable. HEART: S1, S2 normal, regular. LUNGS: Good bilateral air entry. ABDOMEN: Soft and distended with ascites. EXTREMITIES: No calf swelling, no tenderness, no acute ischemia. CENTRAL NERVOUS SYSTEM: Essentially unchanged. DIAGNOSTIC DATA: Available reviewed. The patient is for possible paracentesis and possible biopsy. PLAN: As ordered. Burke Harris MD cc: [id number] TT: 08/18/2016 08:51:29 Confirmation # [id number] Dictation # [id number]
--- NOTE | 2016-08-18 09:23 | CP.PCM.CON ---
History of Present Illness - History of Present Illness History of Present Illness: This is a 61 yrs old male who was admitted with c/o abdominal distention, and change in mental status. Pt has h/o increased alcohol intake resulting in cirrhosis, ascitis and portal hypertension , and splenomegaly. He was also found to have a right upper lobe mass in the right lung. He needs a biopsy of the lung but his INR is slightly elevated, and and his platelets are 38K. He gives no complaints of bleeding. He has confusion, but CT of the head did not show any pathology.He now needs a lung biopsy and a consult was requested to make it safe for him to go through it without bleeding. He has not been drinking since his twenties? He also is HCV positive. Past Patient History - Infectious Disease Hx of Infectious Diseases: None - Past Medical History & Family History Past Medical History?: Yes - Past Social History Smoking Status: Light Smoker < 10 Cigarettes Daily - CARDIAC Hx Cardiac Disorders: Yes Hx Hypercholesterolemia: Yes Hx Hypertension: Yes - PULMONARY Hx Respiratory Disorders: Yes Hx Asthma: Yes Hx Chronic Obstructive Pulmonary Disease (COPD): Yes - NEUROLOGICAL Hx Alzheimer's Disease: Yes Hx Seizures: Yes - HEENT Hx HEENT Problems: Yes - RENAL Hx Chronic Kidney Disease: Yes (STAGE 2) - ENDOCRINE/METABOLIC Hx Endocrine Disorders: Yes Hx Diabetes Mellitus Type 2: Yes Hx Hypothyroidism: Yes - HEMATOLOGICAL/ONCOLOGICAL Hx Blood Disorders: Yes Hx Anemia: Yes Hx Hepatitis C: Yes - INTEGUMENTARY Hx Dermatological Problems: No - MUSCULOSKELETAL/RHEUMATOLOGICAL Hx Musculoskeletal Disorders: Yes Hx Falls: Yes Hx Fractures: Yes - GASTROINTESTINAL Hx Gastrointestinal Disorders: Yes Hx Gall Bladder Disease: Yes - GENITOURINARY/GYNECOLOGICAL Hx Genitourinary Disorders: Yes Hx Prostate Cancer: Yes - PSYCHIATRIC Hx Psychophysiologic Disorder: Yes Hx Paranoia: Yes Hx Schizophrenia: Yes Hx Substance Use: No - SURGICAL HISTORY Hx Surgeries: Yes Other/Comment: REPAIR NASL FX PROSTATE SEED IMPLANT - ANESTHESIA Hx Anesthesia: Yes Hx Anesthesia Reactions: No Hx Malignant Hyperthermia: No Meds Allergies/Adverse Reactions: Allergies Allergy/AdvReac Type Severity Reaction Status Date / Time atorvastatin calcium Allergy Verified 05/08/16 11:34 [From Lipitor] levofloxacin [From Levaquin] Allergy Verified 05/08/16 11:34 - Medications Medications: Current Medications Dextrose (Glutose 15) 0 gm PO ONCE PRN; Protocol PRN Reason: Hypoglycemia Protocol Dextrose (Dextrose 50% Inj) 0 ml IV STAT PRN; Protocol PRN Reason: Hyglycemia Protocol Finasteride (Proscar) 5 mg PO DAILY [facility] Last Admin: 08/18/16 08:50 Dose: 5 mg Furosemide (Lasix) 20 mg PO DAILY [facility] Last Admin: 08/18/16 08:50 Dose: Not Given Glucagon (Glucagen Diagnostic Kit) 0 mg IM STAT PRN; Protocol PRN Reason: Hypoglycemia Protocol Insulin Detemir (Levemir) 10 units SC [facility] Last Admin: 08/17/16 23:50 Dose: 10 u Insulin Human Regular (Humulin R) 0 units SC [facility] PRN Reason: Protocol Last Admin: 08/18/16 08:13 Dose: 2 units Lactulose (Enulose) 30 gm PO TID [facility] Last Admin: 08/18/16 08:46 Dose: 30 gm Levothyroxine Sodium (Synthroid) 25 mcg PO 0630 [facility] Last Admin: 08/18/16 08:16 Dose: 25 mcg Nicotine (Nicoderm Cq) 1 patch TD DAILY [facility] Last Admin: 08/18/16 08:48 Dose: 1 patch Pantoprazole Sodium (Protonix Ec Tab) 40 mg PO DAILY [facility] Last Admin: 08/18/16 08:49 Dose: 40 mg Propranolol HCl (Inderal) 10 mg PO TID [facility] Last Admin: 08/18/16 08:49 Dose: Not Given Risperidone (Risperdal Tab) 2 mg PO [facility] Last Admin: 08/17/16 21:56 Dose: 2 mg Fluticasone/Salmeterol (Advair Diskus 250/50) 1 puff IH Q12 [facility] Last Admin: 08/18/16 08:45 Dose: 1 puff Spironolactone (Aldactone) 25 mg PO DAILY [facility] Last Admin: 08/18/16 08:49 Dose: 25 mg Tamsulosin HCl (Flomax) 0.4 mg PO [facility] Last Admin: 08/17/16 21:56 Dose: 0.4 mg Physical Exam - Additional Findings Additional findings: Physical exam; Alert, well oriented, in no acute distress neck; Supple, no adenopathy Chest; Clearleft lung. poor entry right lung no rales or rhonchi Heart; RSR, no murmur Abd; Soft, no mass,ascitis 4+. Results - Vital Signs Recent Vital Signs: Last Vital Signs Temp 98.3 F 08/18/16 07:54 Pulse 79 08/18/16 08:49 Resp 20 08/18/16 07:54 BP 119/50 L 08/18/16 08:50 Pulse Ox 97 08/18/16 07:54 - Labs Result Diagrams: 08/18/16 06:15 08/18/16 06:15 Labs: Laboratory Results - last 24 hr 08/17/16 08/17/16 08/17/16 08:22 10:57 16:21 WBC RBC Hgb Hct MCV MCH MCHC RDW Plt Count Manual Plt Count 36 L* Sodium Potassium Chloride Carbon Dioxide Anion Gap BUN Creatinine Est GFR ( Amer) Est GFR (Non-Af Amer) POC Glucose (mg/dL) 255 H 155 H Random Glucose Calcium Total Bilirubin AST ALT Alkaline Phosphatase Total Protein Albumin Globulin Albumin/Globulin Ratio Blood Type Blood Type Confirm Antibody Screen BBK History Checked 08/17/16 08/17/16 08/17/16 20:45 21:03 21:37 WBC RBC Hgb Hct MCV MCH MCHC RDW Plt Count Manual Plt Count Sodium Potassium Chloride Carbon Dioxide Anion Gap BUN Creatinine Est GFR ( Amer) Est GFR (Non-Af Amer) POC Glucose (mg/dL) 139 H Random Glucose Calcium Total Bilirubin AST ALT Alkaline Phosphatase Total Protein Albumin Globulin Albumin/Globulin Ratio Blood Type O POSITIVE Blood Type Confirm O POSITIVE Antibody Screen Negative BBK History Checked No verified bt 08/18/16 08/18/16 05:55 06:15 WBC 2.4 L RBC 3.30 L Hgb 9.8 L Hct 29.7 L MCV 90.0 MCH 29.7 MCHC 33.0 RDW 16.2 H Plt Count 38 L Manual Plt Count Sodium 141 Potassium 4.5 Chloride 110 H Carbon Dioxide 22 Anion Gap 14 BUN 22 H Creatinine 1.0 Est GFR ( Amer) > 60 Est GFR (Non-Af Amer) > 60 POC Glucose (mg/dL) 202 H Random Glucose 164 H Calcium 8.5 Total Bilirubin 1.1 AST 68 H ALT 55 Alkaline Phosphatase 143 H Total Protein 5.9 L Albumin 2.6 L Globulin 3.2 Albumin/Globulin Ratio 0.8 L Blood Type Blood Type Confirm Antibody Screen BBK History Checked Assessment & Plan - Assessment and Plan (Free Text) Assessment: Impression; Alcoholic liver disease,ascitis. 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 Lung mass Plan: Plan; Would give one unit of fresh frozen plasma, followed by 2 units of pheresis platelets just before he goes in for the biopsy. - Date & Time Date: 08/18/16 Time: 09:32
[2016-08-18 09:45] LABS: HEMATOCRIT 29.1 % (35.0-51.0); MEAN CELL VOLUME 89.4 fl (80.0-94.0); MEAN CORPUSCULAR HEMOGLOBIN 29.7 pg (27.0-31.0); MEAN CORPUSCULAR HGB CONC 33.3 g/dL (33.0-37.0); WHITE BLOOD COUNT 2.6 K/uL (4.8-10.8)
--- NOTE | 2016-08-18 13:59 | CP.PCM.PN ---
Subjective - Date & Time of Evaluation Date of Evaluation: 08/18/16 Time of Evaluation: 13:00 - Subjective Subjective: Patient seen at [facility]. [place]. Awaiting therapeutic tap and lung biopsy. Having adequate BM. Alert and oriented Objective - Vital Signs/Intake and Output Vital Signs (last 24 hours): Temp Pulse Resp BP Pulse Ox 98.3 F 79 20 119/50 L 97 08/18/16 07:54 08/18/16 08:49 08/18/16 07:54 08/18/16 08:50 08/18/16 07:54 - Medications Medications: Current Medications Dextrose (Glutose 15) 0 gm PO ONCE PRN; Protocol PRN Reason: Hypoglycemia Protocol Dextrose (Dextrose 50% Inj) 0 ml IV STAT PRN; Protocol PRN Reason: Hyglycemia Protocol Finasteride (Proscar) 5 mg PO DAILY [facility] Last Admin: 08/18/16 08:50 Dose: 5 mg Furosemide (Lasix) 20 mg PO DAILY [facility] Last Admin: 08/18/16 08:50 Dose: Not Given Glucagon (Glucagen Diagnostic Kit) 0 mg IM STAT PRN; Protocol PRN Reason: Hypoglycemia Protocol Insulin Detemir (Levemir) 10 units SC HS [facility] Last Admin: 08/17/16 23:50 Dose: 10 u Insulin Human Regular (Humulin R) 0 units SC [facility] PRN Reason: Protocol Last Admin: 08/18/16 12:09 Dose: Not Given Lactulose (Enulose) 30 gm PO TID [facility] Last Admin: 08/18/16 08:46 Dose: 30 gm Levothyroxine Sodium (Synthroid) 25 mcg PO 0630 [facility] Last Admin: 08/18/16 08:16 Dose: 25 mcg Nicotine (Nicoderm Cq) 1 patch TD DAILY [facility] Last Admin: 08/18/16 08:48 Dose: 1 patch Pantoprazole Sodium (Protonix Ec Tab) 40 mg PO DAILY [facility] Last Admin: 08/18/16 08:49 Dose: 40 mg Propranolol HCl (Inderal) 10 mg PO TID [facility] Last Admin: 08/18/16 08:49 Dose: Not Given Risperidone (Risperdal Tab) 2 mg PO HS [facility] Last Admin: 08/17/16 21:56 Dose: 2 mg Fluticasone/Salmeterol (Advair Diskus 250/50) 1 puff IH Q12 [facility] Last Admin: 08/18/16 08:45 Dose: 1 puff Spironolactone (Aldactone) 25 mg PO DAILY [facility] Last Admin: 08/18/16 08:49 Dose: 25 mg Tamsulosin HCl (Flomax) 0.4 mg PO HS [facility] Last Admin: 08/17/16 21:56 Dose: 0.4 mg - Labs Labs: 08/18/16 09:10 08/18/16 06:15 PT 13.4 SECONDS (9.6-11.2) H 08/16/16 09:10 INR 1.29 (0.92-1.08) H 08/16/16 09:10 - Constitutional Appears: Well, No Acute Distress - Head Exam Head Exam: ATRAUMATIC, NORMAL INSPECTION, NORMOCEPHALIC Additional comments: Anicteric sclera - ENT Exam ENT Exam: Mucous Membranes Moist, Normal Exam - Neck Exam Neck Exam: Full ROM, Normal Inspection. absent: Lymphadenopathy - Respiratory Exam Respiratory Exam: Clear to Ausculation Bilateral Additional comments: Decreased BS - Cardiovascular Exam Cardiovascular Exam: REGULAR RHYTHM, +S1, +S2. absent: Murmur - GI/Abdominal Exam GI & Abdominal Exam: Distended Additional comments: Tense. 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 Plan: -recommend IR guided LV paracentesis -send fluid for albumin, TP, cell count/diff, and culture -recommend triple phase CT to r/o HCC -give albumin 25 g per 3 liters removed above 5 liters total -recommend low sodium diet - daily electrolytes and replete as needed due to daily 2 BM -continue lactulose, titrate to 2-3 bm per day - start rifaximin 550 mg q 12 hours -outpatient egd/colon recommended -High viral load- needs to start treatment as outpatient - Discontinue PPI- high risk of SBP in setting of overt ascites - Will follow patient with you closely
[2016-08-18] MEDS: Insulin Detemir 100 Units/ml Inj SC SCH (23:12)
[2016-08-19 07:07] LABS: HEMATOCRIT 28.5 % (35.0-51.0); MEAN CELL VOLUME 89.9 fl (80.0-94.0); MEAN CORPUSCULAR HEMOGLOBIN 29.6 pg (27.0-31.0); MEAN CORPUSCULAR HGB CONC 32.9 g/dL (33.0-37.0); RED CELL DISTRIBUTION WIDTH 16.1 % (11.5-14.5); WHITE BLOOD COUNT 2.4 K/uL (4.8-10.8)
[2016-08-19] MEDS: Insulin Regular 100 units/ml SC SCH ×4 (07:14→22:15)
[2016-08-19] MEDS: Levothyroxine 25 MCG TAB PO SCH (07:15)
[2016-08-19 07:23] LABS: BLOOD UREA NITROGEN 22 mg/dl (9-20); CALCIUM 8.6 mg/dL (8.4-10.2); CARBON DIOXIDE 22 mmol/L (22-30); CHLORIDE 111 mmol/L (98-107); GFR AFRICAN-AMERICAN > 60; GLUCOSE,RANDOM 174 mg/dL (75-110); POTASSIUM 4.2 MMOL/L (3.6-5.0); SODIUM 143 mmol/l (132-148)
--- NOTE | 2016-08-19 08:32 | CP.PCM.PN ---
Subjective - Date & Time of Evaluation Date of Evaluation: 08/19/16 Time of Evaluation: 08:32 - Subjective Subjective: Pt 's condition has not changed, . He was to have his lung biopsy and abdominal paracentesis yesterday, but he was transfused too early, so by the time a platelet count was requested 2 hrs later, the platelets were low again because of his hypersplenism. He needs to be transfused just before his procedure . Objective - Vital Signs/Intake and Output Vital Signs (last 24 hours): Temp Pulse Resp BP Pulse Ox 98.3 F 81 20 156/75 H 97 08/18/16 21:43 08/18/16 21:43 08/18/16 21:43 08/18/16 21:43 08/18/16 21:43 - Medications Medications: Current Medications Dextrose (Glutose 15) 0 gm PO ONCE PRN; Protocol PRN Reason: Hypoglycemia Protocol Dextrose (Dextrose 50% Inj) 0 ml IV STAT PRN; Protocol PRN Reason: Hyglycemia Protocol Finasteride (Proscar) 5 mg PO DAILY [facility] Last Admin: 08/18/16 08:50 Dose: 5 mg Furosemide (Lasix) 20 mg PO DAILY [facility] Last Admin: 08/18/16 08:50 Dose: Not Given Glucagon (Glucagen Diagnostic Kit) 0 mg IM STAT PRN; Protocol PRN Reason: Hypoglycemia Protocol Insulin Detemir (Levemir) 10 units SC HS [facility] Last Admin: 08/18/16 23:12 Dose: 10 u Insulin Human Regular (Humulin R) 0 units SC [facility] PRN Reason: Protocol Last Admin: 08/19/16 07:14 Dose: 1 units Lactulose (Enulose) 30 gm PO TID [facility] Last Admin: 08/18/16 17:06 Dose: 30 gm Levothyroxine Sodium (Synthroid) 25 mcg PO 0630 [facility] Last Admin: 08/19/16 07:15 Dose: 25 mcg Nicotine (Nicoderm Cq) 1 patch TD DAILY [facility] Last Admin: 08/18/16 08:48 Dose: 1 patch Pantoprazole Sodium (Protonix Ec Tab) 40 mg PO DAILY [facility] Last Admin: 08/18/16 08:49 Dose: 40 mg Propranolol HCl (Inderal) 10 mg PO TID [facility] Last Admin: 08/18/16 17:07 Dose: Not Given Risperidone (Risperdal Tab) 2 mg PO HS [facility] Last Admin: 08/18/16 21:30 Dose: 2 mg Fluticasone/Salmeterol (Advair Diskus 250/50) 1 puff IH Q12 [facility] Last Admin: 08/18/16 21:29 Dose: 1 puff Spironolactone (Aldactone) 25 mg PO DAILY [facility] Last Admin: 08/18/16 08:49 Dose: 25 mg Tamsulosin HCl (Flomax) 0.4 mg PO [facility] Last Admin: 08/18/16 21:29 Dose: 0.4 mg - Labs Labs: 08/19/16 05:30 08/19/16 05:30 PT 13.4 SECONDS (9.6-11.2) H 08/16/16 09:10 INR 1.29 (0.92-1.08) H 08/16/16 09:10
--- NOTE | 2016-08-19 11:55 | CP.PCM.PN ---
<CarolinaMarcos - Last Filed: 08/19/16 11:52> Subjective - Date & Time of Evaluation Date of Evaluation: 08/19/16 Time of Evaluation: 11:52 - Subjective Subjective: PGY4 GI Fellow Progress Note Patient seen and examined bedside this morning. The patient denies any BM today but states he has been passing large bowel movements daily and had multiple episodes yesterday. Admits to urinating without difficulty. No abdominal pain, confusion and denies any sleep/wake alteration. Tolerating diet. 12 system ROS performed and negative except where stated. Objective - Vital Signs/Intake and Output Vital Signs (last 24 hours): Temp Pulse Resp BP Pulse Ox 97.8 F 85 18 142/70 96 08/19/16 11:00 08/19/16 11:00 08/19/16 11:00 08/19/16 11:00 08/19/16 11:00 - Medications Medications: Current Medications Dextrose (Glutose 15) 0 gm PO ONCE PRN; Protocol PRN Reason: Hypoglycemia Protocol Dextrose (Dextrose 50% Inj) 0 ml IV STAT PRN; Protocol PRN Reason: Hyglycemia Protocol Finasteride (Proscar) 5 mg PO DAILY [facility] Last Admin: 08/18/16 08:50 Dose: 5 mg Furosemide (Lasix) 20 mg PO DAILY [facility] Last Admin: 08/18/16 08:50 Dose: Not Given Glucagon (Glucagen Diagnostic Kit) 0 mg IM STAT PRN; Protocol PRN Reason: Hypoglycemia Protocol Insulin Detemir (Levemir) 10 units SC [facility] Last Admin: 08/18/16 23:12 Dose: 10 u Insulin Human Regular (Humulin R) 0 units SC [facility] PRN Reason: Protocol Last Admin: 08/19/16 07:14 Dose: 1 units Lactulose (Enulose) 30 gm PO TID [facility] Last Admin: 08/18/16 17:06 Dose: 30 gm Levothyroxine Sodium (Synthroid) 25 mcg PO 30 [facility] Last Admin: 08/19/16 07:15 Dose: 25 mcg Nicotine (Nicoderm Cq) 1 patch TD DAILY [facility] Last Admin: 08/18/16 08:48 Dose: 1 patch Pantoprazole Sodium (Protonix Ec Tab) 40 mg PO DAILY [facility] Last Admin: 08/18/16 08:49 Dose: 40 mg Propranolol HCl (Inderal) 10 mg PO TID [facility] Last Admin: 08/18/16 17:07 Dose: Not Given Risperidone (Risperdal Tab) 2 mg PO HS [facility] Last Admin: 08/18/16 21:30 Dose: 2 mg Fluticasone/Salmeterol (Advair Diskus 250/50) 1 puff IH Q12 [facility] Last Admin: 08/18/16 21:29 Dose: 1 puff Spironolactone (Aldactone) 25 mg PO DAILY [facility] Last Admin: 08/18/16 08:49 Dose: 25 mg Tamsulosin HCl (Flomax) 0.4 mg PO HS [facility] Last Admin: 08/18/16 21:29 Dose: 0.4 mg - Labs Labs: 08/19/16 05:30 08/19/16 05:30 PT 13.4 SECONDS (9.6-11.2) H 08/16/16 09:10 INR 1.29 (0.92-1.08) H 08/16/16 09:10 - Constitutional Appears: No Acute Distress, Chronically Ill - Eye Exam Eye Exam: EOMI, PERRL - Respiratory Exam Respiratory Exam: Clear to Ausculation Bilateral. absent: Rales, Rhonchi, Wheezes - Cardiovascular Exam Cardiovascular Exam: RRR, +S1, +S2 - GI/Abdominal Exam GI & Abdominal Exam: Distended, Soft, Hernia (umbilical), Normal Bowel Sounds. absent: Guarding, Rigid, Tenderness, Organomegaly - Extremities Exam Additional comments: 2+ B/L LE edema - Neurological Exam Neurological Exam: Alert, Awake, Oriented x3 Additional comments: no asterixis - Psychiatric Exam Psychiatric exam: Normal Affect, Normal Mood - Skin Skin Exam: Dry, Warm Assessment and Plan - Assessment and Plan (Free Text) Assessment: Patient is a 61yo male with PMHx significant for Decompensated cirrhosis 2/2 EtOH abuse and HCV (genotype 3 documented previously), Prostate cancer s/p brachytherapy and XRT who presented from jail for increased confusion and agitation. He also c/o abdominal distention. -Decompensated cirrhosis 2/2 EtOH abuse (previously) and HCV (genotype 3) with high viral load -HCV -H/O esophageal varices -H/O prostate cancer Plan: -Continue lactulose to 30gm PO TID, tritrate to 2-3 BM/day -Increase Lasix/Aldactone to 40/100mg PO QD -IR did not identify any ascites that could be drained -HCV viral load performed, genotype not performed on reflex as ordered; now pending -Last EGD performed in 2014, would benefit from repeat - eval varices -Strongly encourage outpatient follow up for HCV treatment, monitoring/ treatment of cirrhosis -MELD-Na: 12 <Cata Garcia MD - Last Filed: 08/19/16 18:53> Objective - Vital Signs/Intake and Output Vital Signs (last 24 hours): Temp Pulse Resp BP Pulse Ox 97.6 F 72 22 144/66 100 08/19/16 16:26 08/19/16 18:07 08/19/16 16:26 08/19/16 18:07 08/19/16 16:26 - Medications Medications: Current Medications Dextrose (Glutose 15) 0 gm PO ONCE PRN; Protocol PRN Reason: Hypoglycemia Protocol Dextrose (Dextrose 50% Inj) 0 ml IV STAT PRN; Protocol PRN Reason: Hyglycemia Protocol Finasteride (Proscar) 5 mg PO DAILY [facility] Last Admin: 08/19/16 12:10 Dose: 5 mg Furosemide (Lasix) 40 mg PO DAILY [facility] Glucagon (Glucagen Diagnostic Kit) 0 mg IM STAT PRN; Protocol PRN Reason: Hypoglycemia Protocol Insulin Detemir (Levemir) 10 units SC [facility] Last Admin: 08/18/16 23:12 Dose: 10 u Insulin Human Regular (Humulin R) 0 units SC [facility] PRN Reason: Protocol Last Admin: 08/19/16 17:10 Dose: 2 units Lactulose (Enulose) 30 gm PO TID [facility] Last Admin: 08/19/16 18:07 Dose: 30 gm Levothyroxine Sodium (Synthroid) 25 mcg PO 30 [facility] Last Admin: 08/19/16 07:15 Dose: 25 mcg Nicotine (Nicoderm Cq) 1 patch TD DAILY [facility] Last Admin: 08/19/16 12:09 Dose: 1 patch Pantoprazole Sodium (Protonix Ec Tab) 40 mg PO DAILY [facility] Last Admin: 08/19/16 12:10 Dose: 40 mg Propranolol HCl (Inderal) 10 mg PO TID [facility] Last Admin: 08/19/16 18:07 Dose: 10 mg Risperidone (Risperdal Tab) 2 mg PO HS [facility] Last Admin: 08/18/16 21:30 Dose: 2 mg Fluticasone/Salmeterol (Advair Diskus 250/50) 1 puff IH Q12 [facility] Last Admin: 08/19/16 12:00 Dose: 1 puff Spironolactone (Aldactone) 100 mg PO DAILY [facility] Tamsulosin HCl (Flomax) 0.4 mg PO HS [facility] Last Admin: 08/18/16 21:29 Dose: 0.4 mg - Labs Labs: 08/19/16 05:30 08/19/16 05:30 PT 13.4 SECONDS (9.6-11.2) H 08/16/16 09:10 INR 1.29 (0.92-1.08) H 08/16/16 09:10 Attending/Attestation - Attestation I have personally seen and examined this patient.: Yes I have fully participated in the care of the patient.: Yes I have reviewed all pertinent clinical information, including history, physical exam and plan: Yes Notes (Text): 08/19/16 18:50 Patient seen and examined with GI fellow on rounds. This is a 61yo male with PMHx significant for alcoholic decompensated cirrhosis and HCV treatment naive, Prostate cancer s/p brachytherapy and XRT who presented from jail for increased confusion and agitation in setting of HE now fully back to baseline. He also c/o abdominal distention with not much ascitic fluid for tap. -Continue lactulose to 30gm PO TID, tritrate to 2-3 BM/day -Increase Lasix/Aldactone to 40/100mg PO QD -Last EGD performed in 2014, would benefit from repeat as outpatient -Strongly encourage outpatient follow up for HCV treatment, monitoring/ treatment of cirrhosis -MELD-Na: 12 - Lung nodule management as per pulmonology and oncology - Low sodium diet - Daily electrolytes- replete as needed - Avoid opioids and narcotics and sedatives - Will follow
[2016-08-19] MEDS: Fluticasone-Salmeterol 250-50mcg Diskus IH SCH ×2 (12:00→21:38)
[2016-08-19] MEDS: Pantoprazole 40 mg EC Tab PO SCH (12:10)
[2016-08-19] MEDS: Lactulose 10 gm/15 ml Syrup PO SCH ×3 (13:07→18:07)
--- NOTE | 2016-08-19 14:46 | CP.PCM.PN ---
<Harleen Brewer - Last Filed: 08/19/16 14:44> Subjective - Date & Time of Evaluation Date of Evaluation: 08/19/16 Time of Evaluation: 07:30 - Subjective Subjective: Pt seen and examined at bedside, doing well. feels a lot better. Objective - Vital Signs/Intake and Output Vital Signs (last 24 hours): Temp Pulse Resp BP Pulse Ox 97.8 F 85 18 132/74 96 08/19/16 11:00 08/19/16 11:00 08/19/16 11:00 08/19/16 14:08 08/19/16 11:00 - Medications Medications: Current Medications Dextrose (Glutose 15) 0 gm PO ONCE PRN; Protocol PRN Reason: Hypoglycemia Protocol Dextrose (Dextrose 50% Inj) 0 ml IV STAT PRN; Protocol PRN Reason: Hyglycemia Protocol Finasteride (Proscar) 5 mg PO DAILY [facility] Last Admin: 08/19/16 12:10 Dose: 5 mg Furosemide (Lasix) 40 mg PO DAILY [facility] Glucagon (Glucagen Diagnostic Kit) 0 mg IM STAT PRN; Protocol PRN Reason: Hypoglycemia Protocol Insulin Detemir (Levemir) 10 units SC [facility] Last Admin: 08/18/16 23:12 Dose: 10 u Insulin Human Regular (Humulin R) 0 units SC [facility] PRN Reason: Protocol Last Admin: 08/19/16 11:50 Dose: Not Given Lactulose (Enulose) 30 gm PO TID [facility] Last Admin: 08/19/16 14:07 Dose: Not Given Levothyroxine Sodium (Synthroid) 25 mcg PO 0630 [facility] Last Admin: 08/19/16 07:15 Dose: 25 mcg Nicotine (Nicoderm Cq) 1 patch TD DAILY [facility] Last Admin: 08/19/16 12:09 Dose: 1 patch Pantoprazole Sodium (Protonix Ec Tab) 40 mg PO DAILY [facility] Last Admin: 08/19/16 12:10 Dose: 40 mg Propranolol HCl (Inderal) 10 mg PO TID [facility] Last Admin: 08/19/16 14:08 Dose: 10 mg Risperidone (Risperdal Tab) 2 mg PO HS [facility] Last Admin: 08/18/16 21:30 Dose: 2 mg Fluticasone/Salmeterol (Advair Diskus 250/50) 1 puff IH Q12 [facility] Last Admin: 08/19/16 12:00 Dose: 1 puff Spironolactone (Aldactone) 100 mg PO DAILY [facility] Tamsulosin HCl (Flomax) 0.4 mg PO HS [facility] Last Admin: 08/18/16 21:29 Dose: 0.4 mg - Labs Labs: 08/19/16 05:30 08/19/16 05:30 PT 13.4 SECONDS (9.6-11.2) H 08/16/16 09:10 INR 1.29 (0.92-1.08) H 08/16/16 09:10 - Constitutional Appears: Non-toxic, No Acute Distress - Head Exam Head Exam: NORMOCEPHALIC - Eye Exam Eye Exam: Normal appearance - ENT Exam ENT Exam: Mucous Membranes Moist - Respiratory Exam Respiratory Exam: Clear to Ausculation Bilateral, NORMAL BREATHING PATTERN. absent: Rhonchi, Wheezes - Cardiovascular Exam Cardiovascular Exam: REGULAR RHYTHM, +S1, +S2 - GI/Abdominal Exam GI & Abdominal Exam: Soft, Normal Bowel Sounds - Extremities Exam Extremities Exam: absent: Calf Tenderness, Pedal Edema Assessment and Plan - Assessment and Plan (Free Text) Assessment: Pt is a 61 y/o male admitted for dehydration and liver abscess 1. ascities due to liver cirrhosis was scheduled for paracentesis ut plt was too low for procedure denies abdominal pain, or sob continue to monitor 2. Lung mass on CT pulmnology consulted- recommends CT guided biopsy when pt PLTS is ok 3. Thrombocytopenia Hematology following pt was transfused PLT yesterday, but was too early in the day before the scheduled procedure Monitor 4. continue with medications as ordered <Burke Harris - Last Filed: 08/24/16 12:01> Objective - Vital Signs/Intake and Output Vital Signs (last 24 hours): Temp Pulse Resp BP Pulse Ox 98.1 F 72 20 128/57 L 98 08/24/16 08:23 08/24/16 09:33 08/24/16 08:23 08/24/16 09:33 08/24/16 08:23 - Medications Medications: Current Medications Acetaminophen (Tylenol 325mg Tab) 650 mg PO Q6 PRN PRN Reason: Pain, Mild (1-3) Last Admin: 08/23/16 22:54 Dose: 650 mg Dextrose (Glutose 15) 0 gm PO ONCE PRN; Protocol PRN Reason: Hypoglycemia Protocol Dextrose (Dextrose 50% Inj) 0 ml IV STAT PRN; Protocol PRN Reason: Hyglycemia Protocol Finasteride (Proscar) 5 mg PO DAILY [facility] Last Admin: 08/24/16 09:34 Dose: 5 mg Furosemide (Lasix) 40 mg PO DAILY [facility] Last Admin: 08/22/16 08:50 Dose: 40 mg Glucagon (Glucagen Diagnostic Kit) 0 mg IM STAT PRN; Protocol PRN Reason: Hypoglycemia Protocol Insulin Detemir (Levemir) 15 units SC [facility] Last Admin: 08/23/16 22:19 Dose: 15 u Insulin Human Regular (Humulin R) [address] [facility] PRN Reason: Protocol Last Admin: 08/24/16 06:51 Dose: Not Given Lactulose (Enulose) 30 gm PO TID [facility] Last Admin: 08/24/16 09:33 Dose: 30 gm Levothyroxine Sodium (Synthroid) 25 mcg PO 0630 [facility] Last Admin: 08/24/16 07:43 Dose: 25 mcg Nicotine (Nicoderm Cq) 1 patch TD DAILY [facility] Last Admin: 08/24/16 09:34 Dose: 1 patch Pantoprazole Sodium (Protonix Ec Tab) 40 mg PO DAILY [facility] Last Admin: 08/24/16 09:33 Dose: 40 mg Propranolol HCl (Inderal) 10 mg PO TID [facility] Last Admin: 08/24/16 09:33 Dose: 10 mg Risperidone (Risperdal Tab) 2 mg PO [facility] Last Admin: 08/23/16 22:19 Dose: 2 mg Fluticasone/Salmeterol (Advair Diskus 250/50) 1 puff IH Q12 [facility] Last Admin: 08/24/16 09:35 Dose: 1 puff Spironolactone (Aldactone) 100 mg PO DAILY [facility] Last Admin: 08/22/16 08:50 Dose: 100 mg Tamsulosin HCl (Flomax) 0.4 mg PO [facility] Last Admin: 08/23/16 22:19 Dose: 0.4 mg - Labs Labs: 08/23/16 05:50 08/24/16 06:05 PT 13.4 SECONDS (9.6-11.2) H 08/16/16 09:10 INR 1.29 (0.92-1.08) H 08/16/16 09:10 Assessment and Plan - Assessment and Plan (Free Text) Assessment: Patient was personally seen and examined by me in rounds with residents. Available labs and diagnostic data reviewed. Case, Patient's condition and management plan discussed with residents in rounds. Agree with resident's documentation. Plan: As ordered. Burke Harris MD
--- NOTE | 2016-08-19 14:54 | CP.PCM.PN ---
Subjective - Date & Time of Evaluation Date of Evaluation: 08/19/16 Time of Evaluation: 14:55 - Subjective Subjective: ABDOMINAL PARACENTESEIS AND LUNG BX ABORTED TODAY BECAUSE OF THROMBOCYTOPENIA Objective - Vital Signs/Intake and Output Vital Signs (last 24 hours): Temp Pulse Resp BP Pulse Ox 97.8 F 85 18 132/74 96 08/19/16 11:00 08/19/16 11:00 08/19/16 11:00 08/19/16 14:08 08/19/16 11:00 - Medications Medications: Current Medications Dextrose (Glutose 15) 0 gm PO ONCE PRN; Protocol PRN Reason: Hypoglycemia Protocol Dextrose (Dextrose 50% Inj) 0 ml IV STAT PRN; Protocol PRN Reason: Hyglycemia Protocol Finasteride (Proscar) 5 mg PO DAILY [facility] Last Admin: 08/19/16 12:10 Dose: 5 mg Furosemide (Lasix) 40 mg PO DAILY [facility] Glucagon (Glucagen Diagnostic Kit) 0 mg IM STAT PRN; Protocol PRN Reason: Hypoglycemia Protocol Insulin Detemir (Levemir) 10 units SC [facility] Last Admin: 08/18/16 23:12 Dose: 10 u Insulin Human Regular (Humulin R) 0 units SC [facility] PRN Reason: Protocol Last Admin: 08/19/16 11:50 Dose: Not Given Lactulose (Enulose) 30 gm PO TID [facility] Last Admin: 08/19/16 14:07 Dose: Not Given Levothyroxine Sodium (Synthroid) 25 mcg PO 0630 [facility] Last Admin: 08/19/16 07:15 Dose: 25 mcg Nicotine (Nicoderm Cq) 1 patch TD DAILY [facility] Last Admin: 08/19/16 12:09 Dose: 1 patch Pantoprazole Sodium (Protonix Ec Tab) 40 mg PO DAILY [facility] Last Admin: 08/19/16 12:10 Dose: 40 mg Propranolol HCl (Inderal) 10 mg PO TID [facility] Last Admin: 08/19/16 14:08 Dose: 10 mg Risperidone (Risperdal Tab) 2 mg PO HS [facility] Last Admin: 08/18/16 21:30 Dose: 2 mg Fluticasone/Salmeterol (Advair Diskus 250/50) 1 puff IH Q12 [facility] Last Admin: 08/19/16 12:00 Dose: 1 puff Spironolactone (Aldactone) 100 mg PO DAILY [facility] Tamsulosin HCl (Flomax) 0.4 mg PO HS [facility] Last Admin: 08/18/16 21:29 Dose: 0.4 mg - Labs Labs: 08/19/16 05:30 08/19/16 05:30 PT 13.4 SECONDS (9.6-11.2) H 08/16/16 09:10 INR 1.29 (0.92-1.08) H 08/16/16 09:10 - Constitutional Appears: Well - Head Exam Head Exam: ATRAUMATIC, NORMAL INSPECTION, NORMOCEPHALIC - Eye Exam Eye Exam: EOMI, Normal appearance, PERRL Pupil Exam: NORMAL ACCOMODATION, PERRL - ENT Exam ENT Exam: Mucous Membranes Moist, Normal Exam - Neck Exam Neck Exam: Full ROM, Normal Inspection. absent: Lymphadenopathy - Respiratory Exam Respiratory Exam: Decreased Breath Sounds, NORMAL BREATHING PATTERN - Cardiovascular Exam Cardiovascular Exam: REGULAR RHYTHM, +S1, +S2. absent: Murmur - GI/Abdominal Exam GI & Abdominal Exam: Distended, Soft, Normal Bowel Sounds. absent: Tenderness - Rectal Exam Rectal Exam: NORMAL INSPECTION - Extremities Exam Extremities Exam: Full ROM, Normal Capillary Refill, Normal Inspection. absent : Joint Swelling, Pedal Edema - Back Exam Back Exam: NORMAL INSPECTION - Neurological Exam Neurological Exam: Alert, Awake, CN II-XII Intact, Normal Gait, Oriented x3 - Psychiatric Exam Psychiatric exam: Normal Affect, Normal Mood - Skin Skin Exam: Dry, Intact, Normal Color, Warm Assessment and Plan - Assessment and Plan (Free Text) Assessment: PLEURAL BASED LUNG MASS CIRRHOSIS WITH ASCITES THROMBOCYTOPENIA Plan: CONSIDER TRANSFUSIOBN OF PLATELETS PRIOR TO BX
--- NOTE | 2016-08-19 15:31 | PCM.SURG1 ---
Surgeon's Initial Post Op Note - Surgeon's Notes Surgeon: Seven Frame Opener: None Type of Anesthesia: None Pre-Operative Diagnosis: Ascites. Operative Findings: Minimal ascites. Post-Operative Diagnosis: Minimal ascites. Operation Performed: No paracensis performed. D/W Alexis Jon and Kimberly. Specimen/Specimens Removed: None Estimated Blood Loss: EBL {In ML}: 0 Date of Surgery/Procedure: 08/19/16 Time of Surgery/Procedure: 10:20
[2016-08-19] MEDS: Insulin Detemir 100 Units/ml Inj SC SCH (22:30)
[2016-08-20] MEDS: Levothyroxine 25 MCG TAB PO SCH (06:18)
[2016-08-20 07:30] LABS: HEMATOCRIT 28.5 % (35.0-51.0); MEAN CELL VOLUME 89.9 fl (80.0-94.0); MEAN CORPUSCULAR HEMOGLOBIN 29.3 pg (27.0-31.0); MEAN CORPUSCULAR HGB CONC 32.6 g/dL (33.0-37.0); RED CELL DISTRIBUTION WIDTH 16.1 % (11.5-14.5); WHITE BLOOD COUNT 2.7 K/uL (4.8-10.8)
[2016-08-20] MEDS: Insulin Regular 100 units/ml SC SCH ×4 (07:30→21:18)
--- NOTE | 2016-08-20 07:31 | CP.PCM.PN ---
Subjective - Date & Time of Evaluation Date of Evaluation: 08/20/16 Time of Evaluation: 07:25 - Subjective Subjective: Patient seen and examined, resting in bed comfortably. No acute events overnight. He denies abdominal pain, nausea, vomiting, diarrhea, fever/chills. Tolerating PO diet without difficulty. According to nursing staff, patient with 2 bowel movements overnight. 12 point review of systems performed, negative aside from mentioned above. Objective - Vital Signs/Intake and Output Vital Signs (last 24 hours): Temp Pulse Resp BP Pulse Ox 97.6 F 72 22 144/66 100 08/19/16 16:26 08/19/16 18:07 08/19/16 16:26 08/19/16 18:07 08/19/16 16:26 - Medications Medications: Current Medications Dextrose (Glutose 15) 0 gm PO ONCE PRN; Protocol PRN Reason: Hypoglycemia Protocol Dextrose (Dextrose 50% Inj) 0 ml IV STAT PRN; Protocol PRN Reason: Hyglycemia Protocol Finasteride (Proscar) 5 mg PO DAILY [facility] Last Admin: 08/19/16 12:10 Dose: 5 mg Furosemide (Lasix) 40 mg PO DAILY [facility] Glucagon (Glucagen Diagnostic Kit) 0 mg IM STAT PRN; Protocol PRN Reason: Hypoglycemia Protocol Insulin Detemir (Levemir) 10 units SC [facility] Last Admin: 08/19/16 22:30 Dose: 10 u Insulin Human Regular (Humulin R) 0 units SC [facility] PRN Reason: Protocol Last Admin: 08/19/16 22:15 Dose: Not Given Lactulose (Enulose) 30 gm PO TID [facility] Last Admin: 08/19/16 18:07 Dose: 30 gm Levothyroxine Sodium (Synthroid) 25 mcg PO 0630 [facility] Last Admin: 08/20/16 06:18 Dose: 25 mcg Nicotine (Nicoderm Cq) 1 patch TD DAILY [facility] Last Admin: 08/19/16 12:09 Dose: 1 patch Pantoprazole Sodium (Protonix Ec Tab) 40 mg PO DAILY [facility] Last Admin: 08/19/16 12:10 Dose: 40 mg Propranolol HCl (Inderal) 10 mg PO TID [facility] Last Admin: 08/19/16 18:07 Dose: 10 mg Risperidone (Risperdal Tab) 2 mg PO HS [facility] Last Admin: 08/19/16 21:39 Dose: 2 mg Fluticasone/Salmeterol (Advair Diskus 250/50) 1 puff IH Q12 [facility] Last Admin: 08/19/16 21:38 Dose: 1 puff Spironolactone (Aldactone) 100 mg PO DAILY [facility] Tamsulosin HCl (Flomax) 0.4 mg PO HS [facility] Last Admin: 08/19/16 21:38 Dose: 0.4 mg - Labs Labs: 08/19/16 05:30 08/19/16 05:30 PT 13.4 SECONDS (9.6-11.2) H 08/16/16 09:10 INR 1.29 (0.92-1.08) H 08/16/16 09:10 - Constitutional Appears: Non-toxic, No Acute Distress - Head Exam Head Exam: NORMAL INSPECTION - Eye Exam Eye Exam: EOMI, Normal appearance - ENT Exam ENT Exam: Mucous Membranes Moist - Respiratory Exam Respiratory Exam: Clear to Ausculation Bilateral - Cardiovascular Exam Cardiovascular Exam: REGULAR RHYTHM, +S1, +S2 - GI/Abdominal Exam GI & Abdominal Exam: Distended, Soft, Normal Bowel Sounds Additional comments: non tender to palpation in four quadrants, +distention - Extremities Exam Extremities Exam: Pedal Edema - Skin Skin Exam: Dry, Intact, Normal Color, Warm Assessment and Plan - Assessment and Plan (Free Text) Assessment: ETOH / HCV decompensated cirrhosis Prostate cancer s/p brachytherapy Altered mental status, hepatic encephalopathy - now resolved Abdominal distention - paracentesis not performed yesterday due to absence of sufficient ascitic fluid Plan: - Diabetic low sodium diet as tolerated - Continue with diuretic therapy, continue to monitor electrolytes - Continue with lactulose, titrated so patient has 3 bowel movements daily - Patient would benefit from EGD/colonoscopy for variceal screening and routine cancer surveillance which can be scheduled electively as outpatient - Management of pulmonary lesion as per pulm/onc team, biopsy deferred given thrombocytopenia - Outpatient follow up regarding potential HCV management with Dr. Garcia - No ongoing GI issues, will sign off case. Please reconsult as necessary, thank you.
[2016-08-20 07:37] LABS: BLOOD UREA NITROGEN 19 mg/dl (9-20); CALCIUM 8.8 mg/dL (8.4-10.2); CARBON DIOXIDE 22 mmol/L (22-30); CHLORIDE 111 mmol/L (98-107); GFR AFRICAN-AMERICAN > 60; GLUCOSE,RANDOM 111 mg/dL (75-110); MAGNESIUM 1.9 MG/DL (1.6-2.3); PHOSPHOROUS 3.7 mg/dl (2.5-4.5); POTASSIUM 4.3 MMOL/L (3.6-5.0); SODIUM 143 mmol/l (132-148)
--- NOTE | 2016-08-20 08:44 | US ---
Ultrasound guided paracentesis. Clinical History: Cirrhosis. Ascites with abdominal pain and distension. Technique: The relative risks and indications for the procedure were explained to the patient and informed written consent obtained. Sonography of the abdomen was performed in a supine position. This revealed a minimal amount of ascites, surrounding the spleen. Enlarged spleen. Impression: Minimal ascites. No paracentesis performed.
[2016-08-20] MEDS: Lactulose 10 gm/15 ml Syrup PO SCH ×3 (09:31→18:18)
[2016-08-20] MEDS: Pantoprazole 40 mg EC Tab PO SCH (09:35)
--- NOTE | 2016-08-20 10:11 | CP.PCM.PN ---
Subjective - Date & Time of Evaluation Date of Evaluation: 08/20/16 Time of Evaluation: 10:11 - Subjective Subjective: DENIES CHEST PAINS/SOB NO APPARENT DISTRESS Objective - Vital Signs/Intake and Output Vital Signs (last 24 hours): Temp Pulse Resp BP Pulse Ox 98.9 F 91 H 20 136/70 98 08/20/16 08:15 08/20/16 09:33 08/20/16 08:15 08/20/16 09:34 08/20/16 08:15 - Medications Medications: Current Medications Dextrose (Glutose 15) 0 gm PO ONCE PRN; Protocol PRN Reason: Hypoglycemia Protocol Dextrose (Dextrose 50% Inj) 0 ml IV STAT PRN; Protocol PRN Reason: Hyglycemia Protocol Finasteride (Proscar) 5 mg PO DAILY [facility] Last Admin: 08/20/16 09:35 Dose: 5 mg Furosemide (Lasix) 40 mg PO DAILY [facility] Last Admin: 08/20/16 09:34 Dose: 40 mg Glucagon (Glucagen Diagnostic Kit) 0 mg IM STAT PRN; Protocol PRN Reason: Hypoglycemia Protocol Insulin Detemir (Levemir) [address] [facility] Last Admin: 08/19/16 22:30 Dose: 10 u Insulin Human Regular (Humulin R) 0 units SC [facility] PRN Reason: Protocol Last Admin: 08/20/16 07:30 Dose: Not Given Lactulose (Enulose) 30 gm PO TID [facility] Last Admin: 08/20/16 09:31 Dose: 30 gm Levothyroxine Sodium (Synthroid) 25 mcg PO 0630 [facility] Last Admin: 08/20/16 06:18 Dose: 25 mcg Nicotine (Nicoderm Cq) 1 patch TD DAILY [facility] Last Admin: 08/20/16 09:34 Dose: 1 patch Pantoprazole Sodium (Protonix Ec Tab) 40 mg PO DAILY [facility] Last Admin: 08/20/16 09:35 Dose: 40 mg Propranolol HCl (Inderal) 10 mg PO TID [facility] Last Admin: 08/20/16 09:33 Dose: 10 mg Risperidone (Risperdal Tab) 2 mg PO HS [facility] Last Admin: 08/19/16 21:39 Dose: 2 mg Fluticasone/Salmeterol (Advair Diskus 250/50) 1 puff IH Q12 [facility] Last Admin: 08/19/16 21:38 Dose: 1 puff Spironolactone (Aldactone) 100 mg PO DAILY [facility] Last Admin: 08/20/16 09:31 Dose: 100 mg Tamsulosin HCl (Flomax) 0.4 mg PO HS [facility] Last Admin: 08/19/16 21:38 Dose: 0.4 mg - Labs Labs: 08/20/16 05:30 08/20/16 05:30 PT 13.4 SECONDS (9.6-11.2) H 08/16/16 09:10 INR 1.29 (0.92-1.08) H 08/16/16 09:10 - Constitutional Appears: No Acute Distress - Head Exam Head Exam: ATRAUMATIC, NORMAL INSPECTION, NORMOCEPHALIC - Eye Exam Eye Exam: EOMI, Normal appearance, PERRL Pupil Exam: NORMAL ACCOMODATION, PERRL - ENT Exam ENT Exam: Mucous Membranes Moist, Normal Exam - Neck Exam Neck Exam: Full ROM, Normal Inspection. absent: Lymphadenopathy - Respiratory Exam Respiratory Exam: Clear to Ausculation Bilateral, NORMAL BREATHING PATTERN - Cardiovascular Exam Cardiovascular Exam: REGULAR RHYTHM, +S1, +S2. absent: Murmur - GI/Abdominal Exam GI & Abdominal Exam: Distended, Normal Bowel Sounds. absent: Tenderness - Rectal Exam Rectal Exam: NORMAL INSPECTION - Extremities Exam Extremities Exam: Full ROM, Normal Capillary Refill, Normal Inspection. 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
[2016-08-20] MEDS: Fluticasone-Salmeterol 250-50mcg Diskus IH SCH ×2 (13:26→21:16)
[2016-08-20] MEDS: Insulin Detemir 100 Units/ml Inj SC SCH (21:25)
[2016-08-21] MEDS: Insulin Regular 100 units/ml SC SCH ×4 (07:47→22:34)
[2016-08-21] MEDS: Levothyroxine 25 MCG TAB PO SCH (07:47)
[2016-08-21 08:03] LABS: HEMATOCRIT 28.3 % (35.0-51.0); MEAN CELL VOLUME 89.7 fl (80.0-94.0); MEAN CORPUSCULAR HEMOGLOBIN 29.2 pg (27.0-31.0); MEAN CORPUSCULAR HGB CONC 32.5 g/dL (33.0-37.0); RED CELL DISTRIBUTION WIDTH 16.5 % (11.5-14.5); WHITE BLOOD COUNT 2.7 K/uL (4.8-10.8)
[2016-08-21 08:10] LABS: ALB/GLOB RATIO 0.9 (1.0-2.1); ALKALINE PHOSPHATASE 147 U/L (38-126); ALT/SGPT 52 U/L (21-72); AST/SGOT 58 U/L (17-59); BILIRUBIN,TOTAL 1.1 mg/dl (0.2-1.3); BLOOD UREA NITROGEN 23 mg/dl (9-20); CALCIUM 9.1 mg/dL (8.4-10.2); CARBON DIOXIDE 21 mmol/L (22-30); CHLORIDE 111 mmol/L (98-107); GFR AFRICAN-AMERICAN > 60; GLUCOSE,RANDOM 124 mg/dL (75-110); POTASSIUM 4.5 MMOL/L (3.6-5.0); SODIUM 144 mmol/l (132-148); TOTAL PROTEIN 5.9 G/DL (6.3-8.2)
[2016-08-21] MEDS: Pantoprazole 40 mg EC Tab PO SCH (10:03)
[2016-08-21] MEDS: Lactulose 10 gm/15 ml Syrup PO SCH ×3 (10:06→18:21)
[2016-08-21] MEDS: Fluticasone-Salmeterol 250-50mcg Diskus IH SCH ×2 (10:06→21:18)
--- NOTE | 2016-08-21 11:50 | CP.PCM.PN ---
Subjective - Date & Time of Evaluation Date of Evaluation: 08/21/16 Time of Evaluation: 11:50 - Subjective Subjective: FEELS BETTER NO RESPIRATORY DISTRESS Objective - Vital Signs/Intake and Output Vital Signs (last 24 hours): Temp Pulse Resp BP Pulse Ox 97.9 F 65 20 108/56 L 96 08/21/16 07:51 08/21/16 10:02 08/21/16 07:51 08/21/16 10:03 08/21/16 07:51 - Medications Medications: Current Medications Acetaminophen (Tylenol 325mg Tab) 650 mg PO Q6 PRN PRN Reason: Pain, Mild (1-3) Last Admin: 08/20/16 13:15 Dose: 650 mg Dextrose (Glutose 15) 0 gm PO ONCE PRN; Protocol PRN Reason: Hypoglycemia Protocol Dextrose (Dextrose 50% Inj) 0 ml IV STAT PRN; Protocol PRN Reason: Hyglycemia Protocol Finasteride (Proscar) 5 mg PO DAILY [facility] Last Admin: 08/21/16 10:05 Dose: 5 mg Furosemide (Lasix) 40 mg PO DAILY [facility] Last Admin: 08/21/16 10:03 Dose: 40 mg Glucagon (Glucagen Diagnostic Kit) 0 mg IM STAT PRN; Protocol PRN Reason: Hypoglycemia Protocol Insulin Detemir (Levemir) 10 units SC HS [facility] Last Admin: 08/20/16 21:25 Dose: 10 u Insulin Human Regular (Humulin R) 0 units SC [facility] PRN Reason: Protocol Last Admin: 08/21/16 07:47 Dose: 1 units Lactulose (Enulose) 30 gm PO TID [facility] Last Admin: 08/21/16 10:06 Dose: 30 gm Levothyroxine Sodium (Synthroid) 25 mcg PO 0630 [facility] Last Admin: 08/21/16 07:47 Dose: 25 mcg Nicotine (Nicoderm Cq) 1 patch TD DAILY [facility] Last Admin: 08/21/16 10:01 Dose: 1 patch Pantoprazole Sodium (Protonix Ec Tab) 40 mg PO DAILY [facility] Last Admin: 08/21/16 10:03 Dose: 40 mg Propranolol HCl (Inderal) 10 mg PO TID [facility] Last Admin: 08/21/16 10:02 Dose: 10 mg Risperidone (Risperdal Tab) 2 mg PO HS [facility] Last Admin: 08/20/16 21:17 Dose: 2 mg Fluticasone/Salmeterol (Advair Diskus 250/50) 1 puff IH Q12 [facility] Last Admin: 08/21/16 10:06 Dose: 1 puff Spironolactone (Aldactone) 100 mg PO DAILY [facility] Last Admin: 08/21/16 10:04 Dose: 100 mg Tamsulosin HCl (Flomax) 0.4 mg PO HS [facility] Last Admin: 08/20/16 21:17 Dose: 0.4 mg - Labs Labs: 08/21/16 06:00 08/21/16 06:00 PT 13.4 SECONDS (9.6-11.2) H 08/16/16 09:10 INR 1.29 (0.92-1.08) H 08/16/16 09:10 - Constitutional Appears: No Acute Distress - Head Exam Head Exam: ATRAUMATIC, NORMAL INSPECTION, NORMOCEPHALIC - Eye Exam Eye Exam: EOMI, Normal appearance, PERRL Pupil Exam: NORMAL ACCOMODATION, PERRL - ENT Exam ENT Exam: Mucous Membranes Moist, Normal Exam - Neck Exam Neck Exam: Full ROM, Normal Inspection. absent: Lymphadenopathy - Respiratory Exam Respiratory Exam: Clear to Ausculation Bilateral, NORMAL BREATHING PATTERN - Cardiovascular Exam Cardiovascular Exam: REGULAR RHYTHM, +S1, +S2. absent: Murmur - GI/Abdominal Exam GI & Abdominal Exam: Distended, Soft, Normal Bowel Sounds. absent: Tenderness - Rectal Exam Rectal Exam: NORMAL INSPECTION - Extremities Exam Extremities Exam: Full ROM, Normal Capillary Refill, Normal Inspection. absent : Joint Swelling, Pedal Edema - Back Exam Back Exam: NORMAL INSPECTION - Neurological Exam Neurological Exam: Alert, Awake, CN II-XII Intact, Normal Gait, Oriented x3 - Psychiatric Exam Psychiatric exam: Normal Affect, Normal Mood - Skin Skin Exam: Dry, Intact, Normal Color, Warm Assessment and Plan - Assessment and Plan (Free Text) Assessment: CIRRHOSIS OF THE LIVER LUNG MASS Plan: ACCORDING TO PT AND HIS SISTER;WORKUP OF LUNG MASS INCLUDING SCHEDULING FOR PET SCAN IS ALREADY IN PROGRESS AT [facility] THEY WILL FOLLOW UP AT [facility] FOR POSSIBLE BIOPSY ON DISCHARGE
--- NOTE | 2016-08-21 20:25 | PN ---
DATE: 08/20/2016 The patient seen and examined. Interim events noted. Consults noted, appreciated. Pulmonary interv ention, radiology, and gastroenterology consult and intervention noted and appreciated. The patient remains on regular medical floor. The patient is sleepy, arousable, . There is no chest pain o r shortness of breath. PHYSICAL EXAMINATION: The patient is in no acute distress. VITAL SIGNS: Stable. HEART EXAMINATION: S1, S2 normal, regular. LUNGS: Good bilateral air entry. ABDOMEN: Soft, tender. No sign of acute abdomen. No guarding, no rigidity, no rebound. CENTRAL NERVOUS SYSTEM EXAMINATION: Essentially unchanged. EXTREMITY EXAMINATION: No edema, no calf swelling, no tenderness. DIAGNOSTIC DATA: Available diagnostic data reviewed. Overall, the patient's general medical condition is stable. PLAN: As ordered. Case was discussed with manager digital. Burke Harris MD cc: [id number] TT: 08/20/2016 08:37:50 Confirmation # [id number] Dictation # [id number] shankar
[2016-08-21] MEDS: Insulin Detemir 100 Units/ml Inj SC SCH (21:54)
[2016-08-22] MEDS: Levothyroxine 25 MCG TAB PO SCH (06:06)
[2016-08-22] MEDS: Insulin Regular 100 units/ml SC SCH ×4 (06:36→22:06)
[2016-08-22 07:16] LABS: HEMATOCRIT 31.2 % (35.0-51.0); MEAN CELL VOLUME 89.8 fl (80.0-94.0); MEAN CORPUSCULAR HEMOGLOBIN 29.6 pg (27.0-31.0); MEAN CORPUSCULAR HGB CONC 32.9 g/dL (33.0-37.0); RED CELL DISTRIBUTION WIDTH 15.9 % (11.5-14.5); WHITE BLOOD COUNT 3.2 K/uL (4.8-10.8)
[2016-08-22 07:30] LABS: ALKALINE PHOSPHATASE 167 U/L (38-126); ALT/SGPT 59 U/L (21-72); AST/SGOT 83 U/L (17-59); BILIRUBIN,TOTAL 1.5 mg/dl (0.2-1.3); BLOOD UREA NITROGEN 24 mg/dl (9-20); CALCIUM 9.1 mg/dL (8.4-10.2); CARBON DIOXIDE 23 mmol/L (22-30); CHLORIDE 105 mmol/L (98-107); GFR AFRICAN-AMERICAN > 60; GLUCOSE,RANDOM 169 mg/dL (75-110); POTASSIUM 4.2 MMOL/L (3.6-5.0); SODIUM 142 mmol/l (132-148); TOTAL PROTEIN 6.8 G/DL (6.3-8.2)
[2016-08-22 07:32] LABS: ALB/GLOB RATIO 0.9 (1.0-2.1)
--- NOTE | 2016-08-22 07:57 | PN ---
DATE: 08/22/2016 The patient seen and examined. Interim events noted. The patient feels okay. No specific complaint . PHYSICAL EXAMINATION: GENERAL: The patient is in no acute distress. VITAL SIGNS: Stable. HEART: S1, S2 normal, regular. LUNGS: Good bilateral air entry. ABDOMEN: Soft, nontender. EXTREMITIES: No edema, no calf swelling, no tenderness, no acute ischemia. CENTRAL NERVOUS SYSTEM: Essentially unchanged. DIAGNOSTIC DATA: Available reviewed. Overall, patient's general medical condition is stable. PLAN: As ordered. Burke Harris MD cc: [id number] TT: 08/22/2016 07:56:28 Confirmation # [id number] Dictation # [id number] en
[2016-08-22] MEDS: Fluticasone-Salmeterol 250-50mcg Diskus IH SCH ×2 (08:47→21:00)
[2016-08-22] MEDS: Pantoprazole 40 mg EC Tab PO SCH (08:48)
[2016-08-22] MEDS: Lactulose 10 gm/15 ml Syrup PO SCH ×3 (08:49→17:27)
--- NOTE | 2016-08-22 10:54 | CP.PCM.PN ---
Subjective - Date & Time of Evaluation Date of Evaluation: 08/22/16 Time of Evaluation: 10:49 - Subjective Subjective: Pt is alert and c/o slight discomfort with the ascitis and also has hydrocele secondary to the free fluid. It is a little uncertain if he is going to have a lung biopsy in [facility] or in [facility] where he already had an appointment for the biopsy before he came here. Objective - Vital Signs/Intake and Output Vital Signs (last 24 hours): Temp Pulse Resp BP Pulse Ox 97.7 F 68 18 131/67 99 08/22/16 08:42 08/22/16 08:48 08/22/16 08:42 08/22/16 08:50 08/22/16 08:42 - Medications Medications: Current Medications Acetaminophen (Tylenol 325mg Tab) 650 mg PO Q6 PRN PRN Reason: Pain, Mild (1-3) Last Admin: 08/22/16 00:04 Dose: 650 mg Dextrose (Glutose 15) 0 gm PO ONCE PRN; Protocol PRN Reason: Hypoglycemia Protocol Dextrose (Dextrose 50% Inj) 0 ml IV STAT PRN; Protocol PRN Reason: Hyglycemia Protocol Finasteride (Proscar) 5 mg PO DAILY [facility] Last Admin: 08/22/16 08:49 Dose: 5 mg Furosemide (Lasix) 40 mg PO DAILY [facility] Last Admin: 08/22/16 08:50 Dose: 40 mg Glucagon (Glucagen Diagnostic Kit) 0 mg IM STAT PRN; Protocol PRN Reason: Hypoglycemia Protocol Insulin Detemir (Levemir) 15 units SC HS [facility] Insulin Human Regular (Humulin R) 0 units SC [facility] PRN Reason: Protocol Last Admin: 08/22/16 06:36 Dose: 2 units Lactulose (Enulose) 30 gm PO TID [facility] Last Admin: 08/22/16 08:49 Dose: 30 gm Levothyroxine Sodium (Synthroid) 25 mcg PO 0630 [facility] Last Admin: 08/22/16 06:06 Dose: 25 mcg Nicotine (Nicoderm Cq) 1 patch TD DAILY [facility] Last Admin: 08/22/16 08:50 Dose: 1 patch Pantoprazole Sodium (Protonix Ec Tab) 40 mg PO DAILY [facility] Last Admin: 08/22/16 08:48 Dose: 40 mg Propranolol HCl (Inderal) 10 mg PO TID [facility] Last Admin: 08/22/16 08:48 Dose: 10 mg Risperidone (Risperdal Tab) 2 mg PO HS [facility] Last Admin: 08/21/16 21:18 Dose: 2 mg Fluticasone/Salmeterol (Advair Diskus 250/50) 1 puff IH Q12 [facility] Last Admin: 08/22/16 08:47 Dose: 1 puff Spironolactone (Aldactone) 100 mg PO DAILY [facility] Last Admin: 08/22/16 08:50 Dose: 100 mg Tamsulosin HCl (Flomax) 0.4 mg PO HS [facility] Last Admin: 08/21/16 21:18 Dose: 0.4 mg - Labs Labs: 08/22/16 06:58 08/22/16 06:58 PT 13.4 SECONDS (9.6-11.2) H 08/16/16 09:10 INR 1.29 (0.92-1.08) H 08/16/16 09:10
[2016-08-22] MEDS: Insulin Detemir 100 Units/ml Inj SC SCH (22:04)
[2016-08-23] MEDS: Insulin Regular 100 units/ml SC SCH ×4 (06:37→22:22)
[2016-08-23] MEDS: Levothyroxine 25 MCG TAB PO SCH (06:42)
[2016-08-23 07:41] LABS: HEMATOCRIT 29.2 % (35.0-51.0); MEAN CELL VOLUME 89.6 fl (80.0-94.0); MEAN CORPUSCULAR HEMOGLOBIN 29.3 pg (27.0-31.0); MEAN CORPUSCULAR HGB CONC 32.7 g/dL (33.0-37.0); RED CELL DISTRIBUTION WIDTH 16.6 % (11.5-14.5); WHITE BLOOD COUNT 2.9 K/uL (4.8-10.8)
[2016-08-23 07:46] LABS: ALB/GLOB RATIO 0.9 (1.0-2.1); BILIRUBIN,TOTAL 1.1 mg/dl (0.2-1.3); CALCIUM 8.6 mg/dL (8.4-10.2); POTASSIUM 5.1 MMOL/L (3.6-5.0); TOTAL PROTEIN 6.2 G/DL (6.3-8.2)
[2016-08-23] MEDS: Fluticasone-Salmeterol 250-50mcg Diskus IH SCH ×2 (09:57→22:19)
[2016-08-23] MEDS: Lactulose 10 gm/15 ml Syrup PO SCH ×3 (09:58→16:59)
[2016-08-23] MEDS: Pantoprazole 40 mg EC Tab PO SCH (09:59)
--- NOTE | 2016-08-23 10:12 | PN ---
DATE: 08/21/2016 The patient seen and examined. Interim events noted. Consults noted, appreciated. The patient jeromy ins on regular floor. The patient feels okay. No specific complaints. The patient is sleepy, arous able. PHYSICAL EXAMINATION: GENERAL: The patient is in no acute distress. VITAL SIGNS: Stable. HEART: S1, S2 normal, regular. LUNGS: Good bilateral air entry. ABDOMEN: Soft, nontender. EXTREMITIES: No edema, no calf swelling, no tenderness, no acute ischemia. CENTRAL NERVOUS SYSTEM: Essentially unchanged. DIAGNOSTIC DATA: Available reviewed. Overall, patient's general medical condition is essentially same. According to pulmonary consult, capri goetz will need biopsy . Will discuss the case with again tomorrow. PLAN: As ordered. Burke Harris MD cc: [id number] TT: 08/21/2016 09:15:54 Confirmation # [id number] Dictation # [id number] en
--- NOTE | 2016-08-23 12:45 | CP.PCM.CON ---
History of Present Illness - History of Present Illness History of Present Illness: Thoracic Surgery - Dr. Hickman 61yo M w/ hx of Schizophrenia, ETOH abuse and Hep C with decompensated cirrhosis , brought [facility] [place] [facility] for increased confusion on 08/15 and subsequently was admitted to the hospital for dehydration. Pt. had a CT chest done which showed a 3x2cm mass in the RUL. Pt states he has known about this lesion and was being worked up at [facility] for this, however has not had a biopsy or PET scan yet. Pt currently is alert and oriented. He denies any SOB, Chest pain, Cough, Fevers/Chills. CT surgery was consulted for possible biopsy of the mass. Review of Systems - Review of Systems All systems: reviewed and no additional remarkable complaints except (as per HPI ) Past Patient History - Infectious Disease Hx of Infectious Diseases: None - Past Medical History & Family History Past Medical History?: Yes - Past Social History Smoking Status: Light Smoker < 10 Cigarettes Daily - CARDIAC Hx Cardiac Disorders: Yes Hx Hypercholesterolemia: Yes Hx Hypertension: Yes - PULMONARY Hx Respiratory Disorders: Yes Hx Asthma: Yes Hx Chronic Obstructive Pulmonary Disease (COPD): Yes - NEUROLOGICAL Hx Alzheimer's Disease: Yes Hx Seizures: Yes - HEENT Hx HEENT Problems: Yes - RENAL Hx Chronic Kidney Disease: Yes (STAGE 2) - ENDOCRINE/METABOLIC Hx Endocrine Disorders: Yes Hx Diabetes Mellitus Type 2: Yes Hx Hypothyroidism: Yes - HEMATOLOGICAL/ONCOLOGICAL Hx Blood Disorders: Yes Hx Anemia: Yes Hx Hepatitis C: Yes - INTEGUMENTARY Hx Dermatological Problems: No - MUSCULOSKELETAL/RHEUMATOLOGICAL Hx Musculoskeletal Disorders: Yes Hx Falls: Yes Hx Fractures: Yes - GASTROINTESTINAL Hx Gastrointestinal Disorders: Yes Hx Gall Bladder Disease: Yes - GENITOURINARY/GYNECOLOGICAL Hx Genitourinary Disorders: Yes Hx Prostate Cancer: Yes - PSYCHIATRIC Hx Psychophysiologic Disorder: Yes Hx Paranoia: Yes Hx Schizophrenia: Yes Hx Substance Use: No - SURGICAL HISTORY Hx Surgeries: Yes Other/Comment: REPAIR NASL FX PROSTATE SEED IMPLANT - ANESTHESIA Hx Anesthesia: Yes Hx Anesthesia Reactions: No Hx Malignant Hyperthermia: No Meds Allergies/Adverse Reactions: Allergies Allergy/AdvReac Type Severity Reaction Status Date / Time atorvastatin calcium Allergy Verified 05/08/16 11:34 [From Lipitor] levofloxacin [From Levaquin] Allergy Verified 05/08/16 11:34 - Medications Medications: Current Medications Acetaminophen (Tylenol 325mg Tab) 650 mg PO Q6 PRN PRN Reason: Pain, Mild (1-3) Last Admin: 08/23/16 12:08 Dose: 650 mg Dextrose (Glutose 15) 0 gm PO ONCE PRN; Protocol PRN Reason: Hypoglycemia Protocol Dextrose (Dextrose 50% Inj) 0 ml IV STAT PRN; Protocol PRN Reason: Hyglycemia Protocol Finasteride (Proscar) 5 mg PO DAILY [facility] Last Admin: 08/23/16 09:59 Dose: 5 mg Furosemide (Lasix) 40 mg PO DAILY [facility] Last Admin: 08/22/16 08:50 Dose: 40 mg Glucagon (Glucagen Diagnostic Kit) 0 mg IM STAT PRN; Protocol PRN Reason: Hypoglycemia Protocol Insulin Detemir (Levemir) 15 units SC [facility] Last Admin: 08/22/16 22:04 Dose: 15 u Insulin Human Regular (Humulin R) 0 units SC [facility] PRN Reason: Protocol Last Admin: 08/23/16 12:09 Dose: 3 units Lactulose (Enulose) 30 gm PO TID [facility] Last Admin: 08/23/16 12:08 Dose: 30 gm Levothyroxine Sodium (Synthroid) 25 mcg PO 0630 [facility] Last Admin: 08/23/16 06:42 Dose: 25 mcg Nicotine (Nicoderm Cq) 1 patch TD DAILY [facility] Last Admin: 08/23/16 09:59 Dose: 1 patch Pantoprazole Sodium (Protonix Ec Tab) 40 mg PO DAILY [facility] Last Admin: 08/23/16 09:59 Dose: 40 mg Propranolol HCl (Inderal) 10 mg PO TID [facility] Last Admin: 08/23/16 09:58 Dose: 10 mg Risperidone (Risperdal Tab) 2 mg PO [facility] Last Admin: 08/22/16 21:01 Dose: 2 mg Fluticasone/Salmeterol (Advair Diskus 250/50) 1 puff IH Q12 [facility] Last Admin: 08/23/16 09:57 Dose: 1 puff Spironolactone (Aldactone) 100 mg PO DAILY [facility] Last Admin: 08/22/16 08:50 Dose: 100 mg Tamsulosin HCl (Flomax) 0.4 mg PO [facility] Last Admin: 08/22/16 21:01 Dose: 0.4 mg Physical Exam - Constitutional Appears: No Acute Distress - Head Exam Head Exam: ATRAUMATIC, NORMAL INSPECTION, NORMOCEPHALIC - Eye Exam Eye Exam: EOMI, Normal appearance - Respiratory Exam Respiratory Exam: NORMAL BREATHING PATTERN. absent: Respiratory Distress - GI/Abdominal Exam GI & Abdominal Exam: Distended, Soft - Neurological Exam Neurological exam: Alert, Oriented x3 - Psychiatric Exam Psychiatric exam: Normal Affect, Normal Mood - Skin Skin Exam: Dry, Intact Results - Vital Signs Recent Vital Signs: Last Vital Signs Temp 98 F 08/22/16 21:49 Pulse 70 08/23/16 09:58 Resp 20 08/22/16 21:49 BP 127/72 08/23/16 09:58 Pulse Ox 99 08/22/16 21:49 - Labs Result Diagrams: 08/23/16 05:50 08/23/16 05:50 Labs: Laboratory Results - last 24 hr 08/22/16 08/22/16 08/22/16 11:53 16:48 21:41 WBC RBC Hgb Hct MCV MCH MCHC RDW Plt Count Sodium Potassium Chloride Carbon Dioxide Anion Gap BUN Creatinine Est GFR ( Amer) Est GFR (Non-Af Amer) POC Glucose (mg/dL) 166 H 213 H 178 H Random Glucose Calcium Total Bilirubin AST ALT Alkaline Phosphatase Total Protein Albumin Globulin Albumin/Globulin Ratio 08/23/16 08/23/16 08/23/16 05:50 06:06 11:29 WBC 2.9 L RBC 3.26 L Hgb 9.5 L Hct 29.2 L MCV 89.6 MCH 29.3 MCHC 32.7 L RDW 16.6 H Plt Count 42 L Sodium 143 Potassium 5.1 H Chloride 109 H Carbon Dioxide 22 Anion Gap 17 BUN 32 H Creatinine 1.7 H Est GFR ( Amer) 50 Est GFR (Non-Af Amer) 41 POC Glucose (mg/dL) 143 H 274 H Random Glucose 112 H Calcium 8.6 Total Bilirubin 1.1 AST 66 H D ALT 59 Alkaline Phosphatase 160 H Total Protein 6.2 L Albumin 2.9 L Globulin 3.3 Albumin/Globulin Ratio 0.9 L Assessment & Plan - Assessment and Plan (Free Text) Assessment: 61 yo M w/ decompensated Cirrhosis, Thrombocytopenic, w/ RUL lung mass -Surgical excision too high risk at this time -Recommend CT guided lung bx of the mass -Plts and FFP prior to procedure as previously recc. by Hematology -PET/CT for further staging and PFTs would be needed prior to any formal resection if proven malignancy -DW Dr Vick Dale, PGY2
[2016-08-23] MEDS: Insulin Detemir 100 Units/ml Inj SC SCH (22:19)
[2016-08-24] MEDS: Insulin Regular 100 units/ml SC SCH ×4 (06:51→23:06)
[2016-08-24] MEDS: Levothyroxine 25 MCG TAB PO SCH (07:43)
--- NOTE | 2016-08-24 08:07 | CP.PCM.PN ---
<Kathia Dukes - Last Filed: 08/24/16 17:35> Subjective - Date & Time of Evaluation Date of Evaluation: 08/24/16 Time of Evaluation: 07:45 - Subjective Subjective: 61M seen and examined at bedside with attending. Currently he denies any SOB, chest pain, diarrhea, but has discomfort 2/2 ascites. He is eating and having BMs. Objective - Vital Signs/Intake and Output Vital Signs (last 24 hours): Temp Pulse Resp BP Pulse Ox 36.7 C 80 18 135/70 98 08/23/16 17:00 08/23/16 17:00 08/23/16 17:00 08/23/16 17:00 08/23/16 17:00 - Medications Medications: Current Medications Acetaminophen (Tylenol 325mg Tab) 650 mg PO Q6 PRN PRN Reason: Pain, Mild (1-3) Last Admin: 08/23/16 22:54 Dose: 650 mg Dextrose (Glutose 15) 0 gm PO ONCE PRN; Protocol PRN Reason: Hypoglycemia Protocol Dextrose (Dextrose 50% Inj) 0 ml IV STAT PRN; Protocol PRN Reason: Hyglycemia Protocol Finasteride (Proscar) 5 mg PO DAILY [facility] Last Admin: 08/23/16 09:59 Dose: 5 mg Furosemide (Lasix) 40 mg PO DAILY [facility] Last Admin: 08/22/16 08:50 Dose: 40 mg Glucagon (Glucagen Diagnostic Kit) 0 mg IM STAT PRN; Protocol PRN Reason: Hypoglycemia Protocol Insulin Detemir (Levemir) 15 units SC HS [facility] Last Admin: 08/23/16 22:19 Dose: 15 u Insulin Human Regular (Humulin R) 0 units SC [facility] PRN Reason: Protocol Last Admin: 08/24/16 06:51 Dose: Not Given Lactulose (Enulose) 30 gm PO TID [facility] Last Admin: 08/23/16 16:59 Dose: 30 gm Levothyroxine Sodium (Synthroid) 25 mcg PO 0630 [facility] Last Admin: 08/24/16 07:43 Dose: 25 mcg Nicotine (Nicoderm Cq) 1 patch TD DAILY [facility] Last Admin: 08/23/16 09:59 Dose: 1 patch Pantoprazole Sodium (Protonix Ec Tab) 40 mg PO DAILY [facility] Last Admin: 08/23/16 09:59 Dose: 40 mg Propranolol HCl (Inderal) 10 mg PO TID [facility] Last Admin: 08/23/16 16:57 Dose: 10 mg Risperidone (Risperdal Tab) 2 mg PO HS [facility] Last Admin: 08/23/16 22:19 Dose: 2 mg Fluticasone/Salmeterol (Advair Diskus 250/50) 1 puff IH Q12 [facility] Last Admin: 08/23/16 22:19 Dose: 1 puff Spironolactone (Aldactone) 100 mg PO DAILY [facility] Last Admin: 08/22/16 08:50 Dose: 100 mg Tamsulosin HCl (Flomax) 0.4 mg PO HS [facility] Last Admin: 08/23/16 22:19 Dose: 0.4 mg - Labs Labs: 08/23/16 05:50 08/23/16 05:50 PT 13.4 SECONDS (9.6-11.2) H 08/16/16 09:10 INR 1.29 (0.92-1.08) H 08/16/16 09:10 - Constitutional Appears: Well, Non-toxic, No Acute Distress, Older Than Stated Age, Cachectic - Head Exam Head Exam: ATRAUMATIC, NORMAL INSPECTION - Eye Exam Eye Exam: EOMI, Normal appearance - ENT Exam ENT Exam: Mucous Membranes Moist, Normal Exam - Respiratory Exam Respiratory Exam: NORMAL BREATHING PATTERN. absent: Rhonchi - Cardiovascular Exam Cardiovascular Exam: REGULAR RHYTHM - GI/Abdominal Exam GI & Abdominal Exam: Soft, Normal Bowel Sounds. absent: Tenderness - Extremities Exam Extremities Exam: Normal Capillary Refill. absent: Pedal Edema - Neurological Exam Neurological Exam: Alert, Awake, Oriented x3 - Psychiatric Exam Psychiatric exam: Normal Affect, Normal Mood - Skin Skin Exam: Normal Color, Warm Assessment and Plan - Assessment and Plan (Free Text) Assessment: 61M with RUL mass, however definitive tissue biopsy complicated by sequelae of liver cirrhosis with ascites and thrombocytopenia. He is otherwise stable and awaiting placement with further outpatient work-up. Plan: - c/w current medication regimen - Labs in AM - Outpatient w/u for RUL lung mass <Burke Harris K - Last Filed: 09/09/16 15:36> Objective - Vital Signs/Intake and Output Vital Signs (last 24 hours): Temp Pulse Resp BP Pulse Ox 98.0 F 66 18 164/88 H 97 09/09/16 07:32 09/09/16 09:45 09/09/16 07:32 09/09/16 09:45 09/09/16 07:32 - Labs Labs: 09/09/16 06:44 09/09/16 06:44 PT 13.8 SECONDS (9.6-11.2) H 08/29/16 06:10 INR 1.33 (0.92-1.08) H 08/29/16 06:10 Assessment and Plan - Assessment and Plan (Free Text) Assessment: Patient was personally seen and examined by me in rounds with residents. Available labs and diagnostic data reviewed. Case, Patient's condition and management plan discussed with residents in rounds. Agree with resident's documentation. Plan: As ordered. Burke Harris MD
[2016-08-24 08:46] LABS: BLOOD UREA NITROGEN 30 mg/dl (9-20); CALCIUM 9.1 mg/dL (8.4-10.2); CARBON DIOXIDE 19 mmol/L (22-30); CHLORIDE 110 mmol/L (98-107); GFR AFRICAN-AMERICAN > 60; GLUCOSE,RANDOM 132 mg/dL (75-110); PHOSPHOROUS 4.5 mg/dl (2.5-4.5); POTASSIUM 4.8 MMOL/L (3.6-5.0); SODIUM 142 mmol/l (132-148)
--- NOTE | 2016-08-24 09:03 | PN ---
DATE: 08/23/2016 The patient is seen and examined. Interim events noted. The patient remains on regular medical floo r. He feels okay. ____ complaint. No chest pain or shortness of breath. PHYSICAL EXAMINATION: GENERAL: The patient is in no acute distress. VITAL SIGNS: Stable. HEART: S1, S2 normal, regular. LUNGS: Good bilateral air entry. ABDOMEN: Soft, nontender. EXTREMITIES: No calf swelling, no tenderness, no acute ischemia. CENTRAL NERVOUS SYSTEM: Essentially unchanged. DIAGNOSTIC DATA: Available diagnostic data reviewed. Overall, the patient ____ is medically stable. Awaiting ____ surgery consult. PLAN: As ordered. Burke Harris MD cc: [id number] TT: 08/24/2016 09:02:21 Confirmation # [id number] Dictation # [id number] shankar
[2016-08-24] MEDS: Pantoprazole 40 mg EC Tab PO SCH (09:33)
[2016-08-24] MEDS: Lactulose 10 gm/15 ml Syrup PO SCH ×3 (09:33→16:36)
[2016-08-24] MEDS: Fluticasone-Salmeterol 250-50mcg Diskus IH SCH ×2 (09:35→20:59)
--- NOTE | 2016-08-24 12:22 | CP.PCM.CON ---
History of Present Illness - History of Present Illness History of Present Illness: Reason for consultation: Right lung mass. Requested by: Dr. 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 CT shows the mass appears ot be extended to visceral pleura or a subpleural nodule in the same lobe. He has a massive abdominal ascites on px. He has low platelets, and apparently not able to increase over 50k despite platelets transfusuions. Obviously, I would recommend needle bx for tissue dx. VATS bx , in addition to his multiple comorbidities, would entail too higher risk for this pt because simply his liver would not able to support the rigor and stress of the surgical procedure. I have discussed my assessment with the patient and he accepted my recommendation. d/w Dr. Tay. Past Patient History - Infectious Disease Hx of Infectious Diseases: None - Past Medical History & Family History Past Medical History?: Yes - Past Social History Smoking Status: Light Smoker < 10 Cigarettes Daily - CARDIAC Hx Cardiac Disorders: Yes Hx Hypercholesterolemia: Yes Hx Hypertension: Yes - PULMONARY Hx Respiratory Disorders: Yes Hx Asthma: Yes Hx Chronic Obstructive Pulmonary Disease (COPD): Yes - NEUROLOGICAL Hx Alzheimer's Disease: Yes Hx Seizures: Yes - HEENT Hx HEENT Problems: Yes - RENAL Hx Chronic Kidney Disease: Yes (STAGE 2) - ENDOCRINE/METABOLIC Hx Endocrine Disorders: Yes Hx Diabetes Mellitus Type 2: Yes Hx Hypothyroidism: Yes - HEMATOLOGICAL/ONCOLOGICAL Hx Blood Disorders: Yes Hx Anemia: Yes Hx Hepatitis C: Yes - INTEGUMENTARY Hx Dermatological Problems: No - MUSCULOSKELETAL/RHEUMATOLOGICAL Hx Musculoskeletal Disorders: Yes Hx Falls: Yes Hx Fractures: Yes - GASTROINTESTINAL Hx Gastrointestinal Disorders: Yes Hx Gall Bladder Disease: Yes - GENITOURINARY/GYNECOLOGICAL Hx Genitourinary Disorders: Yes Hx Prostate Cancer: Yes - PSYCHIATRIC Hx Psychophysiologic Disorder: Yes Hx Paranoia: Yes Hx Schizophrenia: Yes Hx Substance Use: No - SURGICAL HISTORY Hx Surgeries: Yes Other/Comment: REPAIR NASL FX PROSTATE SEED IMPLANT - ANESTHESIA Hx Anesthesia: Yes Hx Anesthesia Reactions: No Hx Malignant Hyperthermia: No Meds Allergies/Adverse Reactions: Allergies Allergy/AdvReac Type Severity Reaction Status Date / Time atorvastatin calcium Allergy Verified 05/08/16 11:34 [From Lipitor] levofloxacin [From Levaquin] Allergy Verified 05/08/16 11:34 - Medications Medications: Current Medications Acetaminophen (Tylenol 325mg Tab) 650 mg PO Q6 PRN PRN Reason: Pain, Mild (1-3) Last Admin: 08/23/16 22:54 Dose: 650 mg Dextrose (Glutose 15) 0 gm PO ONCE PRN; Protocol PRN Reason: Hypoglycemia Protocol Dextrose (Dextrose 50% Inj) 0 ml IV STAT PRN; Protocol PRN Reason: Hyglycemia Protocol Finasteride (Proscar) 5 mg PO DAILY [facility] Last Admin: 08/24/16 09:34 Dose: 5 mg Furosemide (Lasix) 40 mg PO DAILY [facility] Last Admin: 08/22/16 08:50 Dose: 40 mg Glucagon (Glucagen Diagnostic Kit) 0 mg IM STAT PRN; Protocol PRN Reason: Hypoglycemia Protocol Insulin Detemir (Levemir) 15 units SC [facility] Last Admin: 08/23/16 22:19 Dose: 15 u Insulin Human Regular (Humulin R) 0 units SC [facility] PRN Reason: Protocol Last Admin: 08/24/16 06:51 Dose: Not Given Lactulose (Enulose) 30 gm PO TID [facility] Last Admin: 08/24/16 09:33 Dose: 30 gm Levothyroxine Sodium (Synthroid) 25 mcg PO 0630 [facility] Last Admin: 08/24/16 07:43 Dose: 25 mcg Nicotine (Nicoderm Cq) 1 patch TD DAILY [facility] Last Admin: 08/24/16 09:34 Dose: 1 patch Pantoprazole Sodium (Protonix Ec Tab) 40 mg PO DAILY [facility] Last Admin: 08/24/16 09:33 Dose: 40 mg Propranolol HCl (Inderal) 10 mg PO TID [facility] Last Admin: 08/24/16 09:33 Dose: 10 mg Risperidone (Risperdal Tab) 2 mg PO HS [facility] Last Admin: 08/23/16 22:19 Dose: 2 mg Fluticasone/Salmeterol (Advair Diskus 250/50) 1 puff IH Q12 [facility] Last Admin: 08/24/16 09:35 Dose: 1 puff Spironolactone (Aldactone) 100 mg PO DAILY [facility] Last Admin: 08/22/16 08:50 Dose: 100 mg Tamsulosin HCl (Flomax) 0.4 mg PO HS [facility] Last Admin: 04/04/17 22:19 Dose: 0.4 mg Results - Vital Signs Recent Vital Signs: Last Vital Signs Temp 98.1 F 08/24/16 08:23 Pulse 72 08/24/16 09:33 Resp 20 08/24/16 08:23 BP 128/57 L 08/24/16 09:33 Pulse Ox 98 08/24/16 08:23 - Labs Result Diagrams: 08/26/16 05:55 08/26/16 05:55 Labs: Laboratory Results - last 24 hr 08/23/16 08/23/16 08/24/16 16:51 20:52 05:07 Sodium Potassium Chloride Carbon Dioxide Anion Gap BUN Creatinine Est GFR ( Amer) Est GFR (Non-Af Amer) POC Glucose (mg/dL) 233 H 141 H 139 H Random Glucose Calcium Phosphorus Magnesium 08/24/16 08/24/16 06:05 11:13 Sodium 142 Potassium 4.8 Chloride 110 H Carbon Dioxide 19 L Anion Gap 18 BUN 30 H Creatinine 1.2 Est GFR ( Amer) > 60 Est GFR (Non-Af Amer) > 60 POC Glucose (mg/dL) 296 H Random Glucose 132 H Calcium 9.1 Phosphorus 4.5 Magnesium 2.0
[2016-08-24] MEDS: Insulin Detemir 100 Units/ml Inj SC SCH (23:02)
[2016-08-25] MEDS: Levothyroxine 25 MCG TAB PO SCH (05:34)
[2016-08-25] MEDS: Insulin Regular 100 units/ml SC SCH ×4 (06:38→23:07)
--- NOTE | 2016-08-25 07:12 | CP.PCM.PN ---
<Kathia Dukes - Last Filed: 08/25/16 21:22> Subjective - Date & Time of Evaluation Date of Evaluation: 08/25/16 Time of Evaluation: 07:12 - Subjective Subjective: 61M seen and examined at bedside with attending. Pt still with mild abdominal discomfort but otherwise denies SOB, chest pain. Objective - Vital Signs/Intake and Output Vital Signs (last 24 hours): Temp Pulse Resp BP Pulse Ox 36.3 C L 53 L 20 125/69 100 08/24/16 16:44 08/24/16 16:44 08/24/16 16:44 08/24/16 16:44 08/24/16 16:44 - Medications Medications: Current Medications Acetaminophen (Tylenol 325mg Tab) 650 mg PO Q6 PRN PRN Reason: Pain, Mild (1-3) Last Admin: 08/23/16 22:54 Dose: 650 mg Dextrose (Glutose 15) 0 gm PO ONCE PRN; Protocol PRN Reason: Hypoglycemia Protocol Dextrose (Dextrose 50% Inj) 0 ml IV STAT PRN; Protocol PRN Reason: Hyglycemia Protocol Finasteride (Proscar) 5 mg PO DAILY [facility] Last Admin: 08/24/16 09:34 Dose: 5 mg Furosemide (Lasix) 40 mg PO DAILY [facility] Last Admin: 08/22/16 08:50 Dose: 40 mg Glucagon (Glucagen Diagnostic Kit) 0 mg IM STAT PRN; Protocol PRN Reason: Hypoglycemia Protocol Insulin Detemir (Levemir) 15 units SC [facility] Last Admin: 08/24/16 23:02 Dose: 15 u Insulin Human Regular (Humulin R) [address] [facility] PRN Reason: Protocol Last Admin: 08/25/16 06:38 Dose: 2 units Lactulose (Enulose) 30 gm PO TID [facility] Last Admin: 08/24/16 16:36 Dose: 30 gm Levothyroxine Sodium (Synthroid) 25 mcg PO 0630 [facility] Last Admin: 08/25/16 05:34 Dose: 25 mcg Nicotine (Nicoderm Cq) 1 patch TD DAILY [facility] Last Admin: 08/24/16 09:34 Dose: 1 patch Pantoprazole Sodium (Protonix Ec Tab) 40 mg PO DAILY [facility] Last Admin: 08/24/16 09:33 Dose: 40 mg Propranolol HCl (Inderal) 10 mg PO TID [facility] Last Admin: 08/24/16 16:36 Dose: 10 mg Risperidone (Risperdal Tab) 2 mg PO HS [facility] Last Admin: 08/24/16 21:00 Dose: 2 mg Fluticasone/Salmeterol (Advair Diskus 250/50) 1 puff IH Q12 [facility] Last Admin: 08/24/16 20:59 Dose: 1 puff Spironolactone (Aldactone) 100 mg PO DAILY [facility] Last Admin: 08/22/16 08:50 Dose: 100 mg Tamsulosin HCl (Flomax) 0.4 mg PO HS [facility] Last Admin: 08/24/16 21:00 Dose: 0.4 mg - Labs Labs: 08/23/16 05:50 08/24/16 06:05 PT 13.4 SECONDS (9.6-11.2) H 08/16/16 09:10 INR 1.29 (0.92-1.08) H 08/16/16 09:10 - Constitutional Appears: Non-toxic, No Acute Distress - Head Exam Head Exam: ATRAUMATIC, NORMAL INSPECTION - Eye Exam Eye Exam: EOMI, Normal appearance - ENT Exam ENT Exam: Mucous Membranes Moist, Normal Exam - Neck Exam Neck Exam: Full ROM, Normal Inspection - Respiratory Exam Respiratory Exam: NORMAL BREATHING PATTERN. absent: Rales, Wheezes - Cardiovascular Exam Cardiovascular Exam: REGULAR RHYTHM. absent: JVD - GI/Abdominal Exam GI & Abdominal Exam: Soft, Normal Bowel Sounds - Extremities Exam Extremities Exam: Full ROM, Normal Capillary Refill. absent: Pedal Edema - Neurological Exam Neurological Exam: Alert, Awake - Psychiatric Exam Psychiatric exam: Normal Affect - Skin Skin Exam: Dry, Warm Assessment and Plan - Assessment and Plan (Free Text) Assessment: 61M with RUL mass, however definitive tissue biopsy complicated by sequelae of liver cirrhosis with ascites and thrombocytopenia. He is otherwise stable and awaiting placement with further outpatient work-up. Plan: - c/w current medication regimen - Will consider re-starting Spironolactone and increasing Levemir - Outpatient w/u for RUL lung mass <Burke Harris K - Last Filed: 09/09/16 15:41> Objective - Vital Signs/Intake and Output Vital Signs (last 24 hours): Temp Pulse Resp BP Pulse Ox 98.0 F 66 18 164/88 H 97 09/09/16 07:32 09/09/16 09:45 09/09/16 07:32 09/09/16 09:45 09/09/16 07:32 - Labs Labs: 09/09/16 06:44 09/09/16 06:44 PT 13.8 SECONDS (9.6-11.2) H 08/29/16 06:10 INR 1.33 (0.92-1.08) H 08/29/16 06:10 Assessment and Plan - Assessment and Plan (Free Text) Assessment: Patient was personally seen and examined by me in rounds with residents. Available labs and diagnostic data reviewed. Case, Patient's condition and management plan discussed with residents in rounds. Agree with resident's documentation. Plan: As ordered. Burke Harris MD
[2016-08-25 07:37] LABS: HEMATOCRIT 32.4 % (35.0-51.0); MEAN CELL VOLUME 90.5 fl (80.0-94.0); MEAN CORPUSCULAR HEMOGLOBIN 29.8 pg (27.0-31.0); MEAN CORPUSCULAR HGB CONC 32.9 g/dL (33.0-37.0); RED CELL DISTRIBUTION WIDTH 16.6 % (11.5-14.5); WHITE BLOOD COUNT 3.7 K/uL (4.8-10.8)
[2016-08-25 07:47] LABS: BLOOD UREA NITROGEN 28 mg/dl (9-20); CALCIUM 9.1 mg/dL (8.4-10.2); CARBON DIOXIDE 18 mmol/L (22-30); CHLORIDE 106 mmol/L (98-107); GFR AFRICAN-AMERICAN > 60; GLUCOSE,RANDOM 195 mg/dL (75-110); POTASSIUM 4.5 MMOL/L (3.6-5.0); SODIUM 141 mmol/l (132-148)
[2016-08-25] MEDS: Fluticasone-Salmeterol 250-50mcg Diskus IH SCH ×2 (09:10→23:06)
[2016-08-25] MEDS: Lactulose 10 gm/15 ml Syrup PO SCH ×3 (09:10→17:18)
[2016-08-25] MEDS: Pantoprazole 40 mg EC Tab PO SCH (09:10)
[2016-08-25] MEDS: Insulin Detemir 100 Units/ml Inj SC SCH (23:08)
[2016-08-26] MEDS: Insulin Regular 100 units/ml SC SCH ×4 (06:37→23:43)
[2016-08-26] MEDS: Levothyroxine 25 MCG TAB PO SCH (06:41)
[2016-08-26 08:05] LABS: BLOOD UREA NITROGEN 30 mg/dl (9-20); CALCIUM 8.7 mg/dL (8.4-10.2); CARBON DIOXIDE 20 mmol/L (22-30); CHLORIDE 113 mmol/L (98-107); GFR AFRICAN-AMERICAN > 60; GLUCOSE,RANDOM 135 mg/dL (75-110); POTASSIUM 4.1 MMOL/L (3.6-5.0); SODIUM 145 mmol/l (132-148)
[2016-08-26 08:06] LABS: HEMATOCRIT 28.6 % (35.0-51.0); MEAN CELL VOLUME 88.7 fl (80.0-94.0); MEAN CORPUSCULAR HEMOGLOBIN 30.1 pg (27.0-31.0); MEAN CORPUSCULAR HGB CONC 33.9 g/dL (33.0-37.0); RED CELL DISTRIBUTION WIDTH 16.1 % (11.5-14.5); WHITE BLOOD COUNT 2.8 K/uL (4.8-10.8)
[2016-08-26] MEDS: Fluticasone-Salmeterol 250-50mcg Diskus IH SCH ×2 (08:24→21:10)
[2016-08-26] MEDS: Pantoprazole 40 mg EC Tab PO SCH (08:25)
[2016-08-26] MEDS: Lactulose 10 gm/15 ml Syrup PO SCH ×3 (08:25→19:07)
--- NOTE | 2016-08-26 09:02 | CP.PCM.PN ---
<Kathia Dukes - Last Filed: 08/26/16 15:19> Subjective - Date & Time of Evaluation Date of Evaluation: 08/26/16 Time of Evaluation: 07:25 - Subjective Subjective: 61M seen and examined at bedside with attending. Pt denies abdominal discomfort, SOB, chest pain. Objective - Vital Signs/Intake and Output Vital Signs (last 24 hours): Temp Pulse Resp BP Pulse Ox 36.7 C 68 20 113/58 L 96 08/26/16 08:02 08/26/16 08:25 08/26/16 08:02 08/26/16 08:25 08/26/16 08:02 - Medications Medications: Current Medications Acetaminophen (Tylenol 325mg Tab) 650 mg PO Q6 PRN PRN Reason: Pain, Mild (1-3) Last Admin: 08/25/16 17:18 Dose: 650 mg Dextrose (Glutose 15) 0 gm PO ONCE PRN; Protocol PRN Reason: Hypoglycemia Protocol Dextrose (Dextrose 50% Inj) 0 ml IV STAT PRN; Protocol PRN Reason: Hyglycemia Protocol Finasteride (Proscar) 5 mg PO DAILY [facility] Last Admin: 08/26/16 08:26 Dose: 5 mg Furosemide (Lasix) 40 mg PO DAILY [facility] Last Admin: 08/22/16 08:50 Dose: 40 mg Glucagon (Glucagen Diagnostic Kit) 0 mg IM STAT PRN; Protocol PRN Reason: Hypoglycemia Protocol Insulin Detemir (Levemir) 20 units SC HS [facility] Insulin Human Regular (Humulin R) 0 units SC [facility] PRN Reason: Protocol Last Admin: 08/26/16 06:37 Dose: 1 units Lactulose (Enulose) 30 gm PO TID [facility] Last Admin: 08/26/16 08:25 Dose: 30 gm Levothyroxine Sodium (Synthroid) 25 mcg PO 0630 [facility] Last Admin: 08/26/16 06:41 Dose: 25 mcg Nicotine (Nicoderm Cq) 1 patch TD DAILY [facility] Last Admin: 08/26/16 08:25 Dose: 1 patch Pantoprazole Sodium (Protonix Ec Tab) 40 mg PO DAILY [facility] Last Admin: 08/26/16 08:25 Dose: 40 mg Propranolol HCl (Inderal) 10 mg PO TID [facility] Last Admin: 08/26/16 08:25 Dose: 10 mg Risperidone (Risperdal Tab) 2 mg PO HS [facility] Last Admin: 08/25/16 23:07 Dose: 2 mg Fluticasone/Salmeterol (Advair Diskus 250/50) 1 puff IH Q12 [facility] Last Admin: 08/26/16 08:24 Dose: 1 puff Spironolactone (Aldactone) 100 mg PO DAILY [facility] Last Admin: 08/22/16 08:50 Dose: 100 mg Tamsulosin HCl (Flomax) 0.4 mg PO [facility] Last Admin: 08/25/16 23:07 Dose: 0.4 mg - Labs Labs: 08/26/16 05:55 08/26/16 05:55 PT 13.4 SECONDS (9.6-11.2) H 08/16/16 09:10 INR 1.29 (0.92-1.08) H 08/16/16 09:10 - Constitutional Appears: Non-toxic, No Acute Distress - Head Exam Head Exam: ATRAUMATIC, NORMAL INSPECTION - Eye Exam Eye Exam: EOMI, Normal appearance - ENT Exam ENT Exam: Mucous Membranes Moist, Normal Exam - Neck Exam Neck Exam: Full ROM, Normal Inspection - Respiratory Exam Respiratory Exam: Clear to Ausculation Bilateral, NORMAL BREATHING PATTERN. absent: Rales, Wheezes - Cardiovascular Exam Cardiovascular Exam: REGULAR RHYTHM. absent: JVD - GI/Abdominal Exam GI & Abdominal Exam: Soft (mild distention, no fluid wave noted). absent: Tenderness - Extremities Exam Extremities Exam: Full ROM, Normal Capillary Refill. absent: Pedal Edema - Neurological Exam Neurological Exam: Alert, Awake, Oriented x3 - Psychiatric Exam Psychiatric exam: Flat Affect, Normal Mood - Skin Skin Exam: Normal Color, Warm Assessment and Plan - Assessment and Plan (Free Text) Assessment: 61M with RUL mass, d/w Dr Worthy (IR) this morning. After discussing pt history and challenges he is willing to perform the RUL lung biopsy with appropriate platelet resuscitation, T&S/coags have been completed. Dr Ko Espinoza is also consulting and co-managing the process. MELD-Na: 11 Plan: - IR Procedure 08/29 @ 1300 (Dr Worthy and Melody are aware) - Plateletphoresis to be ordered Monday (08/28) x2, will communicate with Blood Bank and document that these are for Monday procedure. - NPO after MD Monday for Monday procedure - MONDAY (08/29): Transfuse 1 @ noon and the 2nd as being transported to IR - Re-started Spironolactone - Increased Levemir 20U, SC, qHS - Otherwise c/w current medications, diet, interventions <Burke Harris - Last Filed: 09/09/16 15:49> Objective - Vital Signs/Intake and Output Vital Signs (last 24 hours): Temp Pulse Resp BP Pulse Ox 98.0 F 66 18 164/88 H 97 09/09/16 07:32 09/09/16 09:45 09/09/16 07:32 09/09/16 09:45 09/09/16 07:32 - Labs Labs: 09/09/16 06:44 09/09/16 06:44 PT 13.8 SECONDS (9.6-11.2) H 08/29/16 06:10 INR 1.33 (0.92-1.08) H 08/29/16 06:10 Assessment and Plan - Assessment and Plan (Free Text) Assessment: Patient was personally seen and examined by me in rounds with residents. Available labs and diagnostic data reviewed. Case, Patient's condition and management plan discussed with residents in rounds. Agree with resident's documentation. Plan: As ordered. Burke Harris MD
--- NOTE | 2016-08-26 10:57 | CP.PCM.PN ---
Subjective - Date & Time of Evaluation Date of Evaluation: 08/26/16 Time of Evaluation: 10:53 - Subjective Subjective: Pt is feeling better, but there is still the lung mass. The interventional radiologist will do the biopsy on Monday as long as the platelet count is normal. Since the pt has a splenomegaly, transfused platelets will not last long. The best time to give them is 1 hr before the procedure and the second unit can be transfusing as the pt goes to the radiology unit. Objective - Vital Signs/Intake and Output Vital Signs (last 24 hours): Temp Pulse Resp BP Pulse Ox 98.0 F 68 20 113/58 L 96 08/26/16 08:02 08/26/16 08:25 08/26/16 08:02 08/26/16 08:25 08/26/16 08:02 - Medications Medications: Current Medications Acetaminophen (Tylenol 325mg Tab) 650 mg PO Q6 PRN PRN Reason: Pain, Mild (1-3) Last Admin: 08/25/16 17:18 Dose: 650 mg Dextrose (Glutose 15) 0 gm PO ONCE PRN; Protocol PRN Reason: Hypoglycemia Protocol Dextrose (Dextrose 50% Inj) 0 ml IV STAT PRN; Protocol PRN Reason: Hyglycemia Protocol Finasteride (Proscar) 5 mg PO DAILY [facility] Last Admin: 08/26/16 08:26 Dose: 5 mg Furosemide (Lasix) 40 mg PO DAILY [facility] Last Admin: 08/22/16 08:50 Dose: 40 mg Glucagon (Glucagen Diagnostic Kit) 0 mg IM STAT PRN; Protocol PRN Reason: Hypoglycemia Protocol Insulin Detemir (Levemir) 20 units SC HS [facility] Insulin Human Regular (Humulin R) 0 units SC [facility] PRN Reason: Protocol Last Admin: 08/26/16 06:37 Dose: 1 units Lactulose (Enulose) 30 gm PO TID [facility] Last Admin: 08/26/16 08:25 Dose: 30 gm Levothyroxine Sodium (Synthroid) 25 mcg PO 0630 [facility] Last Admin: 08/26/16 06:41 Dose: 25 mcg Nicotine (Nicoderm Cq) 1 patch TD DAILY [facility] Last Admin: 08/26/16 08:25 Dose: 1 patch Pantoprazole Sodium (Protonix Ec Tab) 40 mg PO DAILY [facility] Last Admin: 08/26/16 08:25 Dose: 40 mg Propranolol HCl (Inderal) 10 mg PO TID [facility] Last Admin: 08/26/16 08:25 Dose: 10 mg Risperidone (Risperdal Tab) 2 mg PO HS [facility] Last Admin: 08/25/16 23:07 Dose: 2 mg Fluticasone/Salmeterol (Advair Diskus 250/50) 1 puff IH Q12 [facility] Last Admin: 08/26/16 08:24 Dose: 1 puff Spironolactone (Aldactone) 100 mg PO DAILY [facility] Last Admin: 08/22/16 08:50 Dose: 100 mg Tamsulosin HCl (Flomax) 0.4 mg PO HS [facility] Last Admin: 08/25/16 23:07 Dose: 0.4 mg - Labs Labs: 08/26/16 05:55 08/26/16 05:55 PT 13.5 SECONDS (9.6-11.2) H 08/26/16 08:25 INR 1.30 (0.92-1.08) H 08/26/16 08:25
--- NOTE | 2016-08-26 12:46 | CP.PCM.PN ---
Subjective - Date & Time of Evaluation Date of Evaluation: 08/26/16 Time of Evaluation: 12:46 - Subjective Subjective: NO NEW CLINICAL FINDINGS LUNG BX PLANNED FOR NEXT WEEK BY IR WILL CONTINUE TO FOLLOW WITH YOU Objective - Vital Signs/Intake and Output Vital Signs (last 24 hours): Temp Pulse Resp BP Pulse Ox 98.0 F 68 20 113/58 L 96 08/26/16 08:02 08/26/16 08:25 08/26/16 08:02 08/26/16 08:25 08/26/16 08:02 - Medications Medications: Current Medications Acetaminophen (Tylenol 325mg Tab) 650 mg PO Q6 PRN PRN Reason: Pain, Mild (1-3) Last Admin: 08/25/16 17:18 Dose: 650 mg Dextrose (Glutose 15) 0 gm PO ONCE PRN; Protocol PRN Reason: Hypoglycemia Protocol Dextrose (Dextrose 50% Inj) 0 ml IV STAT PRN; Protocol PRN Reason: Hyglycemia Protocol Finasteride (Proscar) 5 mg PO DAILY [facility] Last Admin: 08/26/16 08:26 Dose: 5 mg Furosemide (Lasix) 40 mg PO DAILY [facility] Last Admin: 08/22/16 08:50 Dose: 40 mg Glucagon (Glucagen Diagnostic Kit) 0 mg IM STAT PRN; Protocol PRN Reason: Hypoglycemia Protocol Insulin Detemir (Levemir) 20 units SC [facility] Insulin Human Regular (Humulin R) 0 units SC [facility] PRN Reason: Protocol Last Admin: 08/26/16 11:59 Dose: 3 units Lactulose (Enulose) 30 gm PO TID [facility] Last Admin: 08/26/16 08:25 Dose: 30 gm Levothyroxine Sodium (Synthroid) 25 mcg PO 0630 [facility] Last Admin: 08/26/16 06:41 Dose: 25 mcg Nicotine (Nicoderm Cq) 1 patch TD DAILY [facility] Last Admin: 08/26/16 08:25 Dose: 1 patch Pantoprazole Sodium (Protonix Ec Tab) 40 mg PO DAILY [facility] Last Admin: 08/26/16 08:25 Dose: 40 mg Propranolol HCl (Inderal) 10 mg PO TID [facility] Last Admin: 08/26/16 08:25 Dose: 10 mg Risperidone (Risperdal Tab) 2 mg PO HS [facility] Last Admin: 08/25/16 23:07 Dose: 2 mg Fluticasone/Salmeterol (Advair Diskus 250/50) 1 puff IH Q12 [facility] Last Admin: 08/26/16 08:24 Dose: 1 puff Spironolactone (Aldactone) 100 mg PO DAILY [facility] Last Admin: 08/22/16 08:50 Dose: 100 mg Tamsulosin HCl (Flomax) 0.4 mg PO HS [facility] Last Admin: 08/25/16 23:07 Dose: 0.4 mg - Labs Labs: 08/26/16 05:55 08/26/16 05:55 PT 13.5 SECONDS (9.6-11.2) H 08/26/16 08:25 INR 1.30 (0.92-1.08) H 08/26/16 08:25
--- NOTE | 2016-08-26 15:32 | CP.PCM.CON ---
History of Present Illness - History of Present Illness History of Present Illness: psychiatry consult- follow up asked to complete paper work for pt to be referred to a group home. cc: i just get bored here, but i'm ok hpi: pt states he is aware of his medical needs and wants to go to a group home. he states his mood feels stable and he is hearing the voices of his parents, but is not bothered by this. he denies any thoughts to harm himself or others. he feels his medications are helping and he denies side effects. mse: alert, oriented x 3. mood is "good" affect appropriate. denies suicidal or homicidal thoughts. +ah which are actually positive and supportive. denies vh. memory is intact, speech is appropriate rate/tone and volume. fair i/j assessment: bipolar disorder alcohol dependence, in sustained remission recommendation: no changes to medications will complete requested paperwork Past Patient History - Infectious Disease Hx of Infectious Diseases: None - Past Medical History & Family History Past Medical History?: Yes - Past Social History Smoking Status: Light Smoker < 10 Cigarettes Daily - CARDIAC Hx Cardiac Disorders: Yes Hx Hypercholesterolemia: Yes Hx Hypertension: Yes - PULMONARY Hx Respiratory Disorders: Yes Hx Asthma: Yes Hx Chronic Obstructive Pulmonary Disease (COPD): Yes - NEUROLOGICAL Hx Alzheimer's Disease: Yes Hx Seizures: Yes - HEENT Hx HEENT Problems: Yes - RENAL Hx Chronic Kidney Disease: Yes (STAGE 2) - ENDOCRINE/METABOLIC Hx Endocrine Disorders: Yes Hx Diabetes Mellitus Type 2: Yes Hx Hypothyroidism: Yes - HEMATOLOGICAL/ONCOLOGICAL Hx Blood Disorders: Yes Hx Anemia: Yes Hx Hepatitis C: Yes - INTEGUMENTARY Hx Dermatological Problems: No - MUSCULOSKELETAL/RHEUMATOLOGICAL Hx Musculoskeletal Disorders: Yes Hx Falls: Yes Hx Fractures: Yes - GASTROINTESTINAL Hx Gastrointestinal Disorders: Yes Hx Gall Bladder Disease: Yes - GENITOURINARY/GYNECOLOGICAL Hx Genitourinary Disorders: Yes Hx Prostate Cancer: Yes - PSYCHIATRIC Hx Psychophysiologic Disorder: Yes Hx Paranoia: Yes Hx Schizophrenia: Yes Hx Substance Use: No - SURGICAL HISTORY Hx Surgeries: Yes Other/Comment: REPAIR NASL FX PROSTATE SEED IMPLANT - ANESTHESIA Hx Anesthesia: Yes Hx Anesthesia Reactions: No Hx Malignant Hyperthermia: No Meds Allergies/Adverse Reactions: Allergies Allergy/AdvReac Type Severity Reaction Status Date / Time atorvastatin calcium Allergy Verified 05/08/16 11:34 [From Lipitor] levofloxacin [From Levaquin] Allergy Verified 05/08/16 11:34 - Medications Medications: Current Medications Acetaminophen (Tylenol 325mg Tab) 650 mg PO Q6 PRN PRN Reason: Pain, Mild (1-3) Last Admin: 08/25/16 17:18 Dose: 650 mg Dextrose (Glutose 15) 0 gm PO ONCE PRN; Protocol PRN Reason: Hypoglycemia Protocol Dextrose (Dextrose 50% Inj) 0 ml IV STAT PRN; Protocol PRN Reason: Hyglycemia Protocol Finasteride (Proscar) 5 mg PO DAILY [facility] Last Admin: 08/26/16 08:26 Dose: 5 mg Furosemide (Lasix) 40 mg PO DAILY [facility] Last Admin: 08/22/16 08:50 Dose: 40 mg Glucagon (Glucagen Diagnostic Kit) 0 mg IM STAT PRN; Protocol PRN Reason: Hypoglycemia Protocol Insulin Detemir (Levemir) 20 units SC [facility] Insulin Human Regular (Humulin R) 0 units SC [facility] PRN Reason: Protocol Last Admin: 08/26/16 11:59 Dose: 3 units Lactulose (Enulose) 30 gm PO TID [facility] Last Admin: 08/26/16 08:25 Dose: 30 gm Levothyroxine Sodium (Synthroid) 25 mcg PO 0630 [facility] Last Admin: 08/26/16 06:41 Dose: 25 mcg Nicotine (Nicoderm Cq) 1 patch TD DAILY [facility] Last Admin: 08/26/16 08:25 Dose: 1 patch Pantoprazole Sodium (Protonix Ec Tab) 40 mg PO DAILY [facility] Last Admin: 08/26/16 08:25 Dose: 40 mg Propranolol HCl (Inderal) 10 mg PO TID [facility] Last Admin: 08/26/16 08:25 Dose: 10 mg Risperidone (Risperdal Tab) 2 mg PO [facility] Last Admin: 08/25/16 23:07 Dose: 2 mg Fluticasone/Salmeterol (Advair Diskus 250/50) 1 puff IH Q12 [facility] Last Admin: 08/26/16 08:24 Dose: 1 puff Spironolactone (Aldactone) 100 mg PO DAILY [facility] Last Admin: 08/22/16 08:50 Dose: 100 mg Tamsulosin HCl (Flomax) 0.4 mg PO [facility] Last Admin: 08/25/16 23:07 Dose: 0.4 mg Results - Vital Signs Recent Vital Signs: Last Vital Signs Temp 98.0 F 08/26/16 08:02 Pulse 68 08/26/16 08:25 Resp 20 08/26/16 08:02 BP 113/58 L 08/26/16 08:25 Pulse Ox 96 08/26/16 08:02 - Labs Result Diagrams: 08/26/16 05:55 08/26/16 05:55 Labs: Laboratory Results - last 24 hr 08/25/16 08/25/16 08/26/16 15:34 21:35 03:24 WBC RBC Hgb Hct MCV MCH MCHC RDW Plt Count PT INR Sodium Potassium Chloride Carbon Dioxide Anion Gap BUN Creatinine Est GFR ( Amer) Est GFR (Non-Af Amer) POC Glucose (mg/dL) 203 H 238 H 222 H Random Glucose Calcium Blood Type Antibody Screen BBK History Checked 08/26/16 08/26/16 08/26/16 05:55 06:06 08:25 WBC 2.8 L RBC 3.22 L Hgb 9.7 L Hct 28.6 L MCV 88.7 MCH 30.1 MCHC 33.9 RDW 16.1 H Plt Count 37 L PT 13.5 H INR 1.30 H Sodium 145 Potassium 4.1 Chloride 113 H Carbon Dioxide 20 L Anion Gap 16 BUN 30 H Creatinine 1.1 Est GFR ( Amer) > 60 Est GFR (Non-Af Amer) > 60 POC Glucose (mg/dL) 155 H Random Glucose 135 H Calcium 8.7 Blood Type O POSITIVE Antibody Screen Negative BBK History Checked Patient has bt 08/26/16 10:46 WBC RBC Hgb Hct MCV MCH MCHC RDW Plt Count PT INR Sodium Potassium Chloride Carbon Dioxide Anion Gap BUN Creatinine Est GFR ( Amer) Est GFR (Non-Af Amer) POC Glucose (mg/dL) 295 H Random Glucose Calcium Blood Type Antibody Screen BBK History Checked
[2016-08-26] MEDS ORDERED: Insulin Detemir 100 Units/ml Inj SC SCH (22:00)
[2016-08-27] MEDS: Levothyroxine 25 MCG TAB PO SCH (06:17)
[2016-08-27] MEDS: Insulin Regular 100 units/ml SC SCH ×4 (07:08→21:37)
[2016-08-27] MEDS ORDERED: Insulin Detemir 100 Units/ml Inj SC SCH (07:27)
[2016-08-27] MEDS: Fluticasone-Salmeterol 250-50mcg Diskus IH SCH ×2 (08:52→19:59)
[2016-08-27] MEDS: Lactulose 10 gm/15 ml Syrup PO SCH ×3 (08:54→17:44)
[2016-08-27] MEDS: Pantoprazole 40 mg EC Tab PO SCH (08:56)
[2016-08-28] MEDS: Levothyroxine 25 MCG TAB PO SCH (06:25)
[2016-08-28 07:23] LABS: HEMATOCRIT 27.9 % (35.0-51.0); MEAN CELL VOLUME 90.1 fl (80.0-94.0); MEAN CORPUSCULAR HEMOGLOBIN 29.3 pg (27.0-31.0); MEAN CORPUSCULAR HGB CONC 32.5 g/dL (33.0-37.0); RED CELL DISTRIBUTION WIDTH 16.3 % (11.5-14.5); WHITE BLOOD COUNT 2.7 K/uL (4.8-10.8)
[2016-08-28 07:31] LABS: ALB/GLOB RATIO 0.8 (1.0-2.1); ALKALINE PHOSPHATASE 150 U/L (38-126); ALT/SGPT 47 U/L (21-72); AST/SGOT 63 U/L (17-59); BILIRUBIN,TOTAL 1.3 mg/dl (0.2-1.3); BLOOD UREA NITROGEN 27 mg/dl (9-20); CALCIUM 8.9 mg/dL (8.4-10.2); CARBON DIOXIDE 20 mmol/L (22-30); CHLORIDE 112 mmol/L (98-107); GFR AFRICAN-AMERICAN > 60; GLUCOSE,RANDOM 175 mg/dL (75-110); POTASSIUM 4.5 MMOL/L (3.6-5.0); SODIUM 142 mmol/l (132-148); TOTAL PROTEIN 5.8 G/DL (6.3-8.2)
--- NOTE | 2016-08-28 08:31 | PN ---
DATE: 08/28/2016 The patient seen and examined. Interim events noted. The patient remains on medical floor with ____ _ tomorrow. Feels okay. No specific complaint. No chest pain or shortness of breath. Complains of generalized weakness. PHYSICAL EXAMINATION: GENERAL: The patient is in no acute distress. VITAL SIGNS: Stable. HEART: S1, S2 normal, regular. LUNGS: Good bilateral air entry. ABDOMEN: Soft, nontender. The patient has . No sign of acute abdomen. No guarding, no rigidi ty, no rebound. EXTREMITIES: No edema, no calf swelling, no tenderness, no acute ischemia. CENTRAL NERVOUS SYSTEM: Essentially unchanged. DIAGNOSTIC DATA: Available reviewed. Overall, patient's general medical condition is stable. PLAN: As ordered. Burke Harris MD cc: [id number] TT: 08/28/2016 08:30:27 Confirmation # [id number] Dictation # [id number] en
--- NOTE | 2016-08-28 08:45 | CP.PCM.PCO ---
Physician Communication Note - Physician Communication Note Physician Communication Note: Kathia Dukes Addendum Addendum: 08/28/16 08:37 Ordered plateletphoresis x2U as discussed with Heme/Onc on Monday for RUL bx by CRISTIANE. Called and followed up with Idalmis, in the lab, explaining the importance of timing and the expiration time on the platelets. She will arrange for the Monday 08:00 delivery.
[2016-08-28] MEDS: Pantoprazole 40 mg EC Tab PO SCH (09:00)
[2016-08-28] MEDS: Lactulose 10 gm/15 ml Syrup PO SCH ×3 (09:00→17:11)
[2016-08-28] MEDS: Insulin Regular 100 units/ml SC SCH ×4 (09:11→21:57)
--- NOTE | 2016-08-28 11:49 | CP.PCM.PN ---
Subjective - Date & Time of Evaluation Date of Evaluation: 08/28/16 Time of Evaluation: 11:49 - Subjective Subjective: NO NEW CLINICAL FINDINGS SCHEDULED FOR CT GUIDED BX OF LUNG MASS IN AM AFTER TRANSFUSION OF PLATLETS WILL CONTINUE TO FOLLOW WITH YOU Objective - Vital Signs/Intake and Output Vital Signs (last 24 hours): Temp Pulse Resp BP Pulse Ox 98.9 F 74 20 124/55 L 96 08/28/16 08:17 08/28/16 08:17 08/28/16 08:17 08/28/16 09:00 08/28/16 08:17 - Medications Medications: Current Medications Acetaminophen (Tylenol 325mg Tab) 650 mg PO Q6 PRN PRN Reason: Pain, Mild (1-3) Last Admin: 08/27/16 13:45 Dose: 650 mg Dextrose (Glutose 15) 0 gm PO ONCE PRN; Protocol PRN Reason: Hypoglycemia Protocol Dextrose (Dextrose 50% Inj) 0 ml IV STAT PRN; Protocol PRN Reason: Hyglycemia Protocol Finasteride (Proscar) 5 mg PO DAILY [facility] Last Admin: 08/28/16 09:06 Dose: 5 mg Furosemide (Lasix) 40 mg PO DAILY [facility] Last Admin: 08/22/16 08:50 Dose: 40 mg Glucagon (Glucagen Diagnostic Kit) 0 mg IM STAT PRN; Protocol PRN Reason: Hypoglycemia Protocol Insulin Detemir (Levemir) 24 units SC [facility] Insulin Human Regular (Humulin R) 0 units SC [facility] PRN Reason: Protocol Last Admin: 08/28/16 09:11 Dose: 1 units Lactulose (Enulose) 30 gm PO TID [facility] Last Admin: 08/28/16 09:00 Dose: 30 gm Levothyroxine Sodium (Synthroid) 25 mcg PO 30 [facility] Last Admin: 08/28/16 06:25 Dose: 25 mcg Nicotine (Nicoderm Cq) 1 patch TD DAILY [facility] Last Admin: 08/28/16 09:05 Dose: 1 patch Pantoprazole Sodium (Protonix Ec Tab) 40 mg PO DAILY [facility] Last Admin: 08/28/16 09:00 Dose: 40 mg Propranolol HCl (Inderal) 10 mg PO TID [facility] Last Admin: 08/28/16 09:00 Dose: Not Given Risperidone (Risperdal Tab) 2 mg PO HS [facility] Last Admin: 08/27/16 21:01 Dose: 2 mg Spironolactone (Aldactone) 100 mg PO DAILY [facility] Last Admin: 08/28/16 09:01 Dose: 100 mg Tamsulosin HCl (Flomax) 0.4 mg PO [facility] Last Admin: 08/27/16 21:01 Dose: 0.4 mg - Labs Labs: 08/28/16 05:30 08/28/16 05:30 PT 13.5 SECONDS (9.6-11.2) H 08/26/16 08:25 INR 1.30 (0.92-1.08) H 08/26/16 08:25
[2016-08-28] MEDS: Insulin Detemir 100 Units/ml Inj SC SCH (21:58)
[2016-08-29] MEDS: Levothyroxine 25 MCG TAB PO SCH (06:48)
[2016-08-29] MEDS: Insulin Regular 100 units/ml SC SCH ×4 (06:48→21:10)
[2016-08-29 07:35] LABS: BASO % 0.3 % (0.0-2.0); EOS % 1.7 % (0.0-4.0); LYMPH # 0.3 K/uL (1.0-4.3); LYMPH % 12.3 % (20.0-40.0); MEAN CELL VOLUME 88.7 fl (80.0-94.0); MEAN CORPUSCULAR HEMOGLOBIN 29.8 pg (27.0-31.0); MEAN CORPUSCULAR HGB CONC 33.6 g/dL (33.0-37.0); MEAN PLATELET VOLUME 9.5 fl (7.2-11.7); MONO # 0.2 K/uL (0.0-0.8); MONO % 8.7 % (0.0-10.0); NRBC % 0.1 % (0.0-0.0); RED CELL DISTRIBUTION WIDTH 16.7 % (11.5-14.5); WHITE BLOOD COUNT 2.6 K/uL (4.8-10.8)
--- NOTE | 2016-08-29 07:47 | PN ---
DATE: 08/29/2016 The patient seen and examined. Interim events noted. Consults noted, appreciated. Pulmonary follow up and intervention noted and appreciated. The patient is for biopsy today. The patient today is sl eeping, arousable, feels okay. No specific complaint of chest pain or shortness of breath. No speci fic issues reported by nursing staff. PHYSICAL EXAMINATION: GENERAL: The patient is in no acute distress. VITAL SIGNS: Stable. HEART: S1, S2 normal, regular. LUNGS: Good bilateral air entry. ABDOMEN: Soft, nontender. EXTREMITIES: No edema, no calf swelling, no tenderness, no acute ischemia. CENTRAL NERVOUS SYSTEM: Essentially unchanged. DIAGNOSTIC DATA: Available diagnostic data reviewed. Overall, patient's general medical condition is stable. PLAN: As ordered. Burke Harris MD cc: [id number] TT: 08/29/2016 07:47:00 Confirmation # [id number] Dictation # [id number] elizabeth
[2016-08-29 07:55] LABS: ALB/GLOB RATIO 0.8 (1.0-2.1); ALKALINE PHOSPHATASE 171 U/L (38-126); ALT/SGPT 51 U/L (21-72); AST/SGOT 67 U/L (17-59); BILIRUBIN,TOTAL 1.2 mg/dl (0.2-1.3); BLOOD UREA NITROGEN 28 mg/dl (9-20); CARBON DIOXIDE 19 mmol/L (22-30); CHLORIDE 114 mmol/L (98-107); GFR AFRICAN-AMERICAN > 60; GLUCOSE,RANDOM 155 mg/dL (75-110); POTASSIUM 4.5 MMOL/L (3.6-5.0); SODIUM 143 mmol/l (132-148); TOTAL PROTEIN 6.1 G/DL (6.3-8.2)
--- NOTE | 2016-08-29 08:14 | PN ---
DATE: 08/27/2016 The patient seen and examined. Interim events. ____ complaint ____ . No chest pain or shortness of breath. PHYSICAL EXAMINATION: GENERAL: The patient is in no acute distress. VITAL SIGNS: Stable. HEART: S1, S2 normal and regular. LUNGS: Good bilateral air entry. ABDOMEN: Soft, nontender. EXTREMITIES: No calf swelling, no tenderness, no acute ischemia. CENTRAL NERVOUS SYSTEM: Essentially unchanged. DIAGNOSTIC DATA: Available diagnostic data reviewed. The patient is tentatively scheduled for ____ biopsy on Monday. Hematology/oncology and ____ followu p intervention noted and appreciated. PLAN: As ordered. ____ Burke Harris MD cc: [id number] TT: 08/27/2016 08:56:03 Confirmation # [id number] Dictation # [id number] shankar
[2016-08-29] MEDS: Lactulose 10 gm/15 ml Syrup PO SCH ×3 (10:11→17:59)
[2016-08-29] MEDS: Pantoprazole 40 mg EC Tab PO SCH (10:12)
--- NOTE | 2016-08-29 10:13 | CP.PCM.PN ---
Subjective - Date & Time of Evaluation Date of Evaluation: 08/29/16 Time of Evaluation: 10:07 - Subjective Subjective: Pt is afebrile, in no acute distress. He is to have a lung biopsy today, but since his platelet count is only 27K he will receive 4 units of platelets prior to the procedure. Objective - Vital Signs/Intake and Output Vital Signs (last 24 hours): Temp Pulse Resp BP Pulse Ox 97.8 F 70 20 125/51 L 100 08/29/16 09:00 08/29/16 09:00 08/29/16 09:00 08/29/16 09:00 08/29/16 09:00 - Medications Medications: Current Medications Acetaminophen (Tylenol 325mg Tab) 650 mg PO Q6 PRN PRN Reason: Pain, Mild (1-3) Last Admin: 08/27/16 13:45 Dose: 650 mg Dextrose (Glutose 15) 0 gm PO ONCE PRN; Protocol PRN Reason: Hypoglycemia Protocol Dextrose (Dextrose 50% Inj) 0 ml IV STAT PRN; Protocol PRN Reason: Hyglycemia Protocol Finasteride (Proscar) 5 mg PO DAILY [facility] Last Admin: 08/28/16 09:06 Dose: 5 mg Furosemide (Lasix) 40 mg PO DAILY [facility] Last Admin: 08/22/16 08:50 Dose: 40 mg Glucagon (Glucagen Diagnostic Kit) 0 mg IM STAT PRN; Protocol PRN Reason: Hypoglycemia Protocol Insulin Detemir (Levemir) 24 units SC [facility] Last Admin: 08/28/16 21:58 Dose: Not Given Insulin Human Regular (Humulin R) 0 units SC [facility] PRN Reason: Protocol Last Admin: 08/29/16 06:48 Dose: Not Given Lactulose (Enulose) 30 gm PO TID [facility] Last Admin: 08/28/16 17:11 Dose: 30 gm Levothyroxine Sodium (Synthroid) 25 mcg PO 0630 [facility] Last Admin: 08/29/16 06:48 Dose: Not Given Nicotine (Nicoderm Cq) 1 patch TD DAILY [facility] Last Admin: 08/28/16 09:05 Dose: 1 patch Pantoprazole Sodium (Protonix Ec Tab) 40 mg PO DAILY [facility] Last Admin: 08/28/16 09:00 Dose: 40 mg Propranolol HCl (Inderal) 10 mg PO TID [facility] Last Admin: 08/28/16 17:14 Dose: 10 mg Risperidone (Risperdal Tab) 2 mg PO HS [facility] Last Admin: 08/28/16 21:50 Dose: 2 mg Spironolactone (Aldactone) 100 mg PO DAILY [facility] Last Admin: 08/28/16 09:01 Dose: 100 mg Tamsulosin HCl (Flomax) 0.4 mg PO HS [facility] Last Admin: 08/28/16 21:50 Dose: 0.4 mg - Labs Labs: 08/29/16 06:10 08/29/16 06:10 PT 13.8 SECONDS (9.6-11.2) H 08/29/16 06:10 INR 1.33 (0.92-1.08) H 08/29/16 06:10
[2016-08-29 13:29] LABS: HEMATOCRIT 29.1 % (35.0-51.0); MEAN CELL VOLUME 89.3 fl (80.0-94.0); MEAN CORPUSCULAR HEMOGLOBIN 29.8 pg (27.0-31.0); MEAN CORPUSCULAR HGB CONC 33.4 g/dL (33.0-37.0); WHITE BLOOD COUNT 3.7 K/uL (4.8-10.8)
[2016-08-29] MEDS ORDERED: Midazolam 2 MG/2 ML VIAL ONE (14:39)
[2016-08-29] MEDS ORDERED: Propofol 10 mg/ml Inj (20 ML) ONE (14:40)
[2016-08-29] MEDS ORDERED: Lidocaine 1% Inj (20ml) ONE (14:54)
--- NOTE | 2016-08-29 15:21 | PCM.SURG1 ---
Surgeon's Initial Post Op Note - Surgeon's Notes Surgeon: Johan Worthy MD Dipping Machine Operator: NONE Type of Anesthesia: IV Sedation Pre-Operative Diagnosis: Lung cancer Operative Findings: CT showed a right upper lobe mass. Post-Operative Diagnosis: Lung cancer Operation Performed: CT guided right lung mass biopsy. Three 20 g core specimen sent for histology. Specimen/Specimens Removed: 20 gauge core x 3 Estimated Blood Loss: EBL {In ML}: 1 Blood Products Given: N/A Drains Used: No Drains Post-Op Condition: Fair Date of Surgery/Procedure: 08/29/16 Time of Surgery/Procedure: 15:15
[2016-08-29] MEDS ORDERED: Sodium Chloride 0.9% 1,000 ML IV SCH (15:30)
[2016-08-29] MEDS: Insulin Detemir 100 Units/ml Inj SC SCH (21:11)
[2016-08-30] MEDS: Levothyroxine 25 MCG TAB PO SCH (07:25)
[2016-08-30] MEDS: Insulin Regular 100 units/ml SC SCH ×6 (07:26→22:11)
--- NOTE | 2016-08-30 07:32 | CP.PCM.PN ---
<RoselineKathia - Last Filed: 08/30/16 09:56> Subjective - Date & Time of Evaluation Date of Evaluation: 08/30/16 Time of Evaluation: 07:15 - Subjective Subjective: 61M seen and examined at bedside with attending. Pt has no acute complaints. He denies SOB, chest pain, palpitations, and denies any abdominal pain at this time. Objective - Vital Signs/Intake and Output Vital Signs (last 24 hours): Temp Pulse Resp BP Pulse Ox 36.3 C L 67 20 163/75 H 99 08/29/16 20:41 08/29/16 20:41 08/29/16 20:41 08/29/16 20:41 08/29/16 20:41 - Medications Medications: Current Medications Acetaminophen (Tylenol 325mg Tab) 650 mg PO Q6 PRN PRN Reason: Pain, Mild (1-3) Last Admin: 08/27/16 13:45 Dose: 650 mg Dextrose (Glutose 15) 0 gm PO ONCE PRN; Protocol PRN Reason: Hypoglycemia Protocol Dextrose (Dextrose 50% Inj) 0 ml IV STAT PRN; Protocol PRN Reason: Hyglycemia Protocol Finasteride (Proscar) 5 mg PO DAILY [facility] Last Admin: 08/29/16 10:12 Dose: Not Given Furosemide (Lasix) 40 mg PO DAILY [facility] Last Admin: 08/22/16 08:50 Dose: 40 mg Glucagon (Glucagen Diagnostic Kit) 0 mg IM STAT PRN; Protocol PRN Reason: Hypoglycemia Protocol Sodium Chloride (Sodium Chloride 0.9%) 1,000 mls @ 0 mls/hr IV .Q0M [facility] PRN Reason: As Directed Insulin Detemir (Levemir) 24 units SC HS [facility] Last Admin: 08/29/16 21:11 Dose: 24 units Insulin Human Regular (Humulin R) 0 units SC [facility] PRN Reason: Protocol Last Admin: 08/30/16 07:26 Dose: Not Given Lactulose (Enulose) 30 gm PO TID [facility] Last Admin: 08/29/16 17:59 Dose: 30 gm Levothyroxine Sodium (Synthroid) 25 mcg PO 0630 [facility] Last Admin: 08/30/16 07:25 Dose: 25 mcg Nicotine (Nicoderm Cq) 1 patch TD DAILY [facility] Last Admin: 08/29/16 11:37 Dose: 1 patch Pantoprazole Sodium (Protonix Ec Tab) 40 mg PO DAILY [facility] Last Admin: 08/29/16 10:12 Dose: Not Given Propranolol HCl (Inderal) 10 mg PO TID [facility] Last Admin: 08/29/16 17:59 Dose: 10 mg Risperidone (Risperdal Tab) 2 mg PO HS [facility] Last Admin: 08/29/16 21:05 Dose: 2 mg Spironolactone (Aldactone) 100 mg PO DAILY [facility] Last Admin: 08/29/16 10:11 Dose: Not Given Tamsulosin HCl (Flomax) 0.4 mg PO HS [facility] Last Admin: 08/29/16 21:05 Dose: 0.4 mg - Labs Labs: 08/29/16 13:15 08/29/16 06:10 PT 13.8 SECONDS (9.6-11.2) H 08/29/16 06:10 INR 1.33 (0.92-1.08) H 08/29/16 06:10 - Constitutional Appears: Non-toxic, No Acute Distress - Head Exam Head Exam: ATRAUMATIC, NORMAL INSPECTION - Eye Exam Eye Exam: EOMI, Normal appearance - ENT Exam ENT Exam: Mucous Membranes Moist, Normal Exam - Neck Exam Neck Exam: Full ROM, Normal Inspection - Respiratory Exam Respiratory Exam: Clear to Ausculation Bilateral, NORMAL BREATHING PATTERN. absent: Decreased Breath Sounds, Rales, Wheezes - Cardiovascular Exam Cardiovascular Exam: REGULAR RHYTHM. absent: JVD - GI/Abdominal Exam GI & Abdominal Exam: Soft, Normal Bowel Sounds. absent: Tenderness - Extremities Exam Extremities Exam: Normal Capillary Refill. absent: Pedal Edema - Neurological Exam Neurological Exam: Awake, Oriented x3 - Psychiatric Exam Psychiatric exam: Flat Affect, Normal Mood - Skin Skin Exam: Normal Color, Warm Assessment and Plan - Assessment and Plan (Free Text) Assessment: 61M PPD#1 s/p IR bx RUL mass after transfuse platelets x4 doing well. Otherwise awaiting placement as patient is homeless. Plan: - Needs Placement - RUL Mass: awaiting pathology - Cirrhosis: Spironolactone, Lactulose, Propanolol - BPH: c/w Finasteride, FloMax - Schizophrenia: c/w Risperidone - DM: Levemir 24U, Accu-check, Hypoglycemia bundle, SSI <Harris,Burke K - Last Filed: 09/09/16 15:50> Objective - Vital Signs/Intake and Output Vital Signs (last 24 hours): Temp Pulse Resp BP Pulse Ox 98.0 F 66 18 164/88 H 97 09/09/16 07:32 09/09/16 09:45 09/09/16 07:32 09/09/16 09:45 09/09/16 07:32 - Labs Labs: 09/09/16 06:44 09/09/16 06:44 PT 13.8 SECONDS (9.6-11.2) H 08/29/16 06:10 INR 1.33 (0.92-1.08) H 08/29/16 06:10 Assessment and Plan - Assessment and Plan (Free Text) Assessment: Patient was personally seen and examined by me in rounds with residents. Available labs and diagnostic data reviewed. Case, Patient's condition and management plan discussed with residents in rounds. Agree with resident's documentation. Plan: As ordered. Burke Harris MD
[2016-08-30 07:37] LABS: HEMATOCRIT 26.2 % (35.0-51.0); MEAN CELL VOLUME 89.7 fl (80.0-94.0); MEAN CORPUSCULAR HEMOGLOBIN 29.7 pg (27.0-31.0); MEAN CORPUSCULAR HGB CONC 33.1 g/dL (33.0-37.0); RED CELL DISTRIBUTION WIDTH 16.6 % (11.5-14.5); WHITE BLOOD COUNT 2.7 K/uL (4.8-10.8)
[2016-08-30 07:59] LABS: ALB/GLOB RATIO 0.8 (1.0-2.1); ALKALINE PHOSPHATASE 150 U/L (38-126); ALT/SGPT 42 U/L (21-72); AST/SGOT 69 U/L (17-59); BILIRUBIN,TOTAL 1.4 mg/dl (0.2-1.3); BLOOD UREA NITROGEN 28 mg/dl (9-20); CALCIUM 8.6 mg/dL (8.4-10.2); CARBON DIOXIDE 20 mmol/L (22-30); CHLORIDE 111 mmol/L (98-107); GFR AFRICAN-AMERICAN > 60; GLUCOSE,RANDOM 98 mg/dL (75-110); POTASSIUM 4.6 MMOL/L (3.6-5.0); SODIUM 144 mmol/l (132-148); TOTAL PROTEIN 6.1 G/DL (6.3-8.2)
--- NOTE | 2016-08-30 09:18 | CP.PCM.PN ---
Subjective - Date & Time of Evaluation Date of Evaluation: 08/30/16 Time of Evaluation: 09:18 - Subjective Subjective: NO COMPLAINTS OR DISTRESS S/P BIOPSY OF LUNG MASS YESTERDAY Objective - Vital Signs/Intake and Output Vital Signs (last 24 hours): Temp Pulse Resp BP Pulse Ox 97.1 F L 75 20 126/60 95 08/30/16 07:57 08/30/16 07:57 08/30/16 07:57 08/30/16 07:57 08/30/16 07:57 - Medications Medications: Current Medications Acetaminophen (Tylenol 325mg Tab) 650 mg PO Q6 PRN PRN Reason: Pain, Mild (1-3) Last Admin: 08/27/16 13:45 Dose: 650 mg Dextrose (Glutose 15) 0 gm PO ONCE PRN; Protocol PRN Reason: Hypoglycemia Protocol Dextrose (Dextrose 50% Inj) 0 ml IV STAT PRN; Protocol PRN Reason: Hyglycemia Protocol Finasteride (Proscar) 5 mg PO DAILY [facility] Last Admin: 08/29/16 10:12 Dose: Not Given Furosemide (Lasix) 40 mg PO DAILY [facility] Last Admin: 08/22/16 08:50 Dose: 40 mg Glucagon (Glucagen Diagnostic Kit) 0 mg IM STAT PRN; Protocol PRN Reason: Hypoglycemia Protocol Sodium Chloride (Sodium Chloride 0.9%) 1,000 mls @ 0 mls/hr IV .Q0M [facility] PRN Reason: As Directed Insulin Detemir (Levemir) 24 units SC HS [facility] Last Admin: 08/29/16 21:11 Dose: 24 units Insulin Human Regular (Humulin R) 0 units SC ACHS [facility] PRN Reason: Protocol Last Admin: 08/30/16 07:26 Dose: Not Given Lactulose (Enulose) 30 gm PO TID [facility] Last Admin: 08/29/16 17:59 Dose: 30 gm Levothyroxine Sodium (Synthroid) 25 mcg PO 0630 [facility] Last Admin: 08/30/16 07:25 Dose: 25 mcg Nicotine (Nicoderm Cq) 1 patch TD DAILY [facility] Last Admin: 08/29/16 11:37 Dose: 1 patch Pantoprazole Sodium (Protonix Ec Tab) 40 mg PO DAILY [facility] Last Admin: 08/29/16 10:12 Dose: Not Given Propranolol HCl (Inderal) 10 mg PO TID [facility] Last Admin: 08/29/16 17:59 Dose: 10 mg Risperidone (Risperdal Tab) 2 mg PO HS [facility] Last Admin: 08/29/16 21:05 Dose: 2 mg Spironolactone (Aldactone) 100 mg PO DAILY [facility] Last Admin: 08/29/16 10:11 Dose: Not Given Tamsulosin HCl (Flomax) 0.4 mg PO HS [facility] Last Admin: 08/29/16 21:05 Dose: 0.4 mg - Labs Labs: 08/30/16 06:00 08/30/16 06:00 PT 13.8 SECONDS (9.6-11.2) H 08/29/16 06:10 INR 1.33 (0.92-1.08) H 08/29/16 06:10 - Constitutional Appears: No Acute Distress - Head Exam Head Exam: ATRAUMATIC, NORMAL INSPECTION, NORMOCEPHALIC - Eye Exam Eye Exam: EOMI, Normal appearance, PERRL Pupil Exam: NORMAL ACCOMODATION, PERRL - ENT Exam ENT Exam: Mucous Membranes Moist, Normal Exam - Neck Exam Neck Exam: Full ROM, Normal Inspection. absent: Lymphadenopathy - Respiratory Exam Respiratory Exam: Prolonged Expiratory Phase, NORMAL BREATHING PATTERN - Cardiovascular Exam Cardiovascular Exam: REGULAR RHYTHM, +S1, +S2. absent: Murmur - GI/Abdominal Exam GI & Abdominal Exam: Distended, Soft, Normal Bowel Sounds. absent: Tenderness - Rectal Exam Rectal Exam: NORMAL INSPECTION - Extremities Exam Extremities Exam: Full ROM, Normal Capillary Refill, Normal Inspection. absent : Joint Swelling, Pedal Edema - Back Exam Back Exam: NORMAL INSPECTION - Neurological Exam Neurological Exam: Alert, Awake, CN II-XII Intact, Normal Gait, Oriented x3 - Psychiatric Exam Psychiatric exam: Normal Affect, Normal Mood - Skin Skin Exam: Dry, Intact, Normal Color, Warm Assessment and Plan - Assessment and Plan (Free Text) Assessment: LUNG MASS CIRRHOSIS OF THE LIVER Plan: CONTINUE PRESENT RX AWAIT PATH REPORT
[2016-08-30] MEDS: Lactulose 10 gm/15 ml Syrup PO SCH ×3 (10:14→17:39)
[2016-08-30] MEDS: Pantoprazole 40 mg EC Tab PO SCH (10:16)
--- NOTE | 2016-08-30 10:38 | RAD ---
HISTORY: Status post right lung mass biopsy. COMPARISON: 08/15/2016 FINDINGS: LUNGS: No active pulmonary disease. PLEURA: No significant pleural effusion identified, no pneumothorax apparent. CARDIOVASCULAR: Normal. OSSEOUS STRUCTURES: No significant abnormalities. VISUALIZED UPPER ABDOMEN: Normal. OTHER FINDINGS: None. IMPRESSION: No active disease.
[2016-08-30] MEDS: Insulin Detemir 100 Units/ml Inj SC SCH (22:13)
[2016-08-31] MEDS: Levothyroxine 25 MCG TAB PO SCH (06:36)
[2016-08-31] MEDS: Insulin Regular 100 units/ml SC SCH ×4 (06:36→21:59)
[2016-08-31 07:35] LABS: HEMATOCRIT 28.7 % (35.0-51.0); MEAN CELL VOLUME 90.2 fl (80.0-94.0); MEAN CORPUSCULAR HEMOGLOBIN 29.8 pg (27.0-31.0); RED CELL DISTRIBUTION WIDTH 16.8 % (11.5-14.5); WHITE BLOOD COUNT 2.6 K/uL (4.8-10.8)
--- NOTE | 2016-08-31 07:43 | CP.PCM.PN ---
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 Original Note: <Kathia Dukes - Last Filed: 08/31/16 08:23> Subjective - Date & Time of Evaluation Date of Evaluation: 08/31/16 Time of Evaluation: 06:50 - Subjective Subjective: 61M seen and examined at bedside with attending. No acute complaints, eating, ambulating well, denies SOB, chest pain, 1-2/10 abdominal discomfort. Objective - Vital Signs/Intake and Output Vital Signs (last 24 hours): Temp Pulse Resp BP Pulse Ox 36.4 C 69 18 160/72 H 100 08/30/16 20:24 08/30/16 20:24 08/30/16 20:24 08/30/16 20:24 08/30/16 20:24 - Medications Medications: Current Medications Acetaminophen (Tylenol 325mg Tab) 650 mg PO Q6 PRN PRN Reason: Pain, Mild (1-3) Last Admin: 08/27/16 13:45 Dose: 650 mg Dextrose (Glutose 15) 0 gm PO ONCE PRN; Protocol PRN Reason: Hypoglycemia Protocol Dextrose (Dextrose 50% Inj) 0 ml IV STAT PRN; Protocol PRN Reason: Hyglycemia Protocol Finasteride (Proscar) 5 mg PO DAILY [facility] Last Admin: 08/30/16 10:15 Dose: 5 mg Furosemide (Lasix) 40 mg PO DAILY [facility] Last Admin: 08/22/16 08:50 Dose: 40 mg Glucagon (Glucagen Diagnostic Kit) 0 mg IM STAT PRN; Protocol PRN Reason: Hypoglycemia Protocol Sodium Chloride (Sodium Chloride 0.9%) 1,000 mls @ 0 mls/hr IV .Q0M [facility] PRN Reason: As Directed Insulin Detemir (Levemir) 26 units SC HS [facility] Insulin Human Regular (Humulin R) 0 units SC ACHS [facility] PRN Reason: Protocol Last Admin: 08/31/16 06:36 Dose: 2 units Lactulose (Enulose) 30 gm PO TID [facility] Last Admin: 08/30/16 17:39 Dose: 30 gm Levothyroxine Sodium (Synthroid) 25 mcg PO 0630 [facility] Last Admin: 08/31/16 06:36 Dose: 25 mcg Nicotine (Nicoderm Cq) 1 patch TD DAILY [facility] Last Admin: 08/30/16 10:15 Dose: 1 patch Pantoprazole Sodium (Protonix Ec Tab) 40 mg PO DAILY [facility] Last Admin: 08/30/16 10:16 Dose: 40 mg Propranolol HCl (Inderal) 10 mg PO TID [facility] Last Admin: 08/30/16 17:39 Dose: 10 mg Risperidone (Risperdal Tab) 2 mg PO HS [facility] Last Admin: 08/30/16 21:23 Dose: 2 mg Spironolactone (Aldactone) 100 mg PO DAILY [facility] Last Admin: 08/30/16 10:14 Dose: 100 mg Tamsulosin HCl (Flomax) 0.4 mg PO HS [facility] Last Admin: 08/30/16 21:23 Dose: 0.4 mg - Labs Labs: 08/31/16 05:45 08/30/16 06:00 PT 13.8 SECONDS (9.6-11.2) H 08/29/16 06:10 INR 1.33 (0.92-1.08) H 08/29/16 06:10 - Constitutional Appears: Non-toxic, No Acute Distress - Head Exam Head Exam: ATRAUMATIC, NORMAL INSPECTION - Eye Exam Eye Exam: EOMI, Normal appearance, Scleral icterus (slight) - ENT Exam ENT Exam: Mucous Membranes Moist, Normal Exam - Neck Exam Neck Exam: Full ROM, Normal Inspection - Respiratory Exam Respiratory Exam: Clear to Ausculation Bilateral, NORMAL BREATHING PATTERN. absent: Rales, Wheezes - Cardiovascular Exam Cardiovascular Exam: REGULAR RHYTHM. absent: JVD - GI/Abdominal Exam GI & Abdominal Exam: Soft (somewhat increased girth), Tenderness (very mild), Normal Bowel Sounds - Extremities Exam Extremities Exam: Normal Capillary Refill. absent: Pedal Edema - Neurological Exam Neurological Exam: Alert, Awake, Oriented x3 - Psychiatric Exam Psychiatric exam: Normal Affect, Normal Mood - Skin Skin Exam: Normal Color (jaundiced not noted), Warm Assessment and Plan - Assessment and Plan (Free Text) Assessment: 61M PPD#1 s/p IR bx RUL mass after transfuse platelets x4 doing well. Otherwise awaiting placement as patient is homeless. Plan: - Awaiting Placement - RUL Mass: awaiting pathology - Cirrhosis: Spironolactone, Lactulose, Propanolol, Daily Weights - BPH: c/w Finasteride, FloMax - Schizophrenia: c/w Risperidone - DM: Increased Levemir 26U, Accu-check, Hypoglycemia bundle, SSI <Burke Harris - Last Filed: 09/09/16 15:51> Objective - Vital Signs/Intake and Output Vital Signs (last 24 hours): Temp Pulse Resp BP Pulse Ox 98.0 F 66 18 164/88 H 97 09/09/16 07:32 09/09/16 09:45 09/09/16 07:32 09/09/16 09:45 09/09/16 07:32 - Labs Labs: 09/09/16 06:44 09/09/16 06:44 PT 13.8 SECONDS (9.6-11.2) H 08/29/16 06:10 INR 1.33 (0.92-1.08) H 08/29/16 06:10 Assessment and Plan - Assessment and Plan (Free Text) Assessment: Patient was personally seen and examined by me in rounds with residents. Available labs and diagnostic data reviewed. Case, Patient's condition and management plan discussed with residents in rounds. Agree with resident's documentation. Plan: As ordered. Burke Harris MD
[2016-08-31 07:53] LABS: ALB/GLOB RATIO 0.9 (1.0-2.1); ALKALINE PHOSPHATASE 165 U/L (38-126); ALT/SGPT 46 U/L (21-72); AST/SGOT 60 U/L (17-59); BILIRUBIN,TOTAL 1.8 mg/dl (0.2-1.3); BLOOD UREA NITROGEN 29 mg/dl (9-20); CALCIUM 9.1 mg/dL (8.4-10.2); CARBON DIOXIDE 19 mmol/L (22-30); CHLORIDE 108 mmol/L (98-107); GFR AFRICAN-AMERICAN > 60; GLUCOSE,RANDOM 207 mg/dL (75-110); POTASSIUM 4.7 MMOL/L (3.6-5.0); SODIUM 140 mmol/l (132-148); TOTAL PROTEIN 6.8 G/DL (6.3-8.2)
[2016-08-31] MEDS: Lactulose 10 gm/15 ml Syrup PO SCH ×3 (09:03→16:42)
[2016-08-31] MEDS: Pantoprazole 40 mg EC Tab PO SCH (09:04)
--- NOTE | 2016-08-31 12:02 | CT ---
PROCEDURE: Date of procedure: 08/29/2016 Procedure: 1. CT-guided lung mass biopsy, CPT [address] Guidance for biopsy, [address] Medications: The patient was sedated by anesthesiologist along with physiologic monitoring. Radiation: 313.02 mGy-cm HISTORY: Right upper lobe lung mass TECHNIQUE: Following informed consent, the Pt's chest was marked. The Pt was placed prone on the CT table and procedure time out was performed. A noncontrast CT scan was performed. Noncontrast CT scan confirmed the presence of a peripheral 4 cm x 2.5 cm mass. A skin localizer was placed on the patient's right upper chest and a repeat CT scan was performed. The skin was marked, prepped, and draped in the usual sterile fashion. After the skin was anesthetized with lidocaine and the patient sedated by the anesthesiologist, a 20 gauge core needle was advanced percutaneously under direct CT guidance into the mass. Upon confirmation of needle position, three 20-gauge core specimens were obtained and sent for routine pathology. The needle was removed and a xeroform dressing was applied. A post biopsy CT scan showed no pneumothorax. IMPRESSION: CT guided core biopsy right lung mass.
[2016-08-31] MEDS: Insulin Detemir 100 Units/ml Inj SC SCH (21:54)
[2016-09-01] MEDS: Insulin Regular 100 units/ml SC SCH ×4 (06:41→21:42)
[2016-09-01] MEDS: Levothyroxine 25 MCG TAB PO SCH (06:42)
--- NOTE | 2016-09-01 06:45 | CP.PCM.PN ---
<Kathia Dukes - Last Filed: 09/01/16 10:41> Subjective - Date & Time of Evaluation Date of Evaluation: 09/01/16 Time of Evaluation: 06:45 - Subjective Subjective: 61M seen and examined at bedside with attending. Pt resting comfortably, denies SOB, chest pain, abdominal pain. Patient informed of diagnosis with oncologist Dr Ko Espinoza, all questions and concerns were addressed. Objective - Vital Signs/Intake and Output Vital Signs (last 24 hours): Temp Pulse Resp BP Pulse Ox 36.9 C 72 19 142/65 96 08/31/16 17:00 08/31/16 17:00 08/31/16 17:00 08/31/16 17:00 08/31/16 17:00 - Medications Medications: Current Medications Acetaminophen (Tylenol 325mg Tab) 650 mg PO Q6 PRN PRN Reason: Pain, Mild (1-3) Last Admin: 08/27/16 13:45 Dose: 650 mg Dextrose (Glutose 15) 0 gm PO ONCE PRN; Protocol PRN Reason: Hypoglycemia Protocol Dextrose (Dextrose 50% Inj) 0 ml IV STAT PRN; Protocol PRN Reason: Hyglycemia Protocol Finasteride (Proscar) 5 mg PO DAILY [facility] Last Admin: 08/31/16 09:04 Dose: 5 mg Furosemide (Lasix) 40 mg PO DAILY [facility] Last Admin: 08/22/16 08:50 Dose: 40 mg Glucagon (Glucagen Diagnostic Kit) 0 mg IM STAT PRN; Protocol PRN Reason: Hypoglycemia Protocol Sodium Chloride (Sodium Chloride 0.9%) 1,000 mls @ 0 mls/hr IV .Q0M [facility] PRN Reason: As Directed Insulin Detemir (Levemir) 26 units SC HS [facility] Last Admin: 08/31/16 21:54 Dose: 26 units Insulin Human Regular (Humulin R) 0 units SC ACHS [facility] PRN Reason: Protocol Last Admin: 09/01/16 06:41 Dose: Not Given Lactulose (Enulose) 30 gm PO TID [facility] Last Admin: 08/31/16 16:42 Dose: 30 gm Levothyroxine Sodium (Synthroid) 25 mcg PO 0630 [facility] Last Admin: 09/01/16 06:42 Dose: 25 mcg Nicotine (Nicoderm Cq) 1 patch TD DAILY [facility] Last Admin: 08/31/16 09:04 Dose: 1 patch Pantoprazole Sodium (Protonix Ec Tab) 40 mg PO DAILY [facility] Last Admin: 08/31/16 09:04 Dose: 40 mg Propranolol HCl (Inderal) 10 mg PO TID [facility] Last Admin: 08/31/16 16:48 Dose: 10 mg Risperidone (Risperdal Tab) 2 mg PO HS [facility] Last Admin: 08/31/16 21:54 Dose: 2 mg Spironolactone (Aldactone) 100 mg PO DAILY [facility] Last Admin: 08/31/16 09:03 Dose: 100 mg Tamsulosin HCl (Flomax) 0.4 mg PO HS [facility] Last Admin: 08/31/16 21:54 Dose: 0.4 mg - Labs Labs: 08/31/16 05:45 08/31/16 05:45 PT 13.8 SECONDS (9.6-11.2) H 08/29/16 06:10 INR 1.33 (0.92-1.08) H 08/29/16 06:10 - Constitutional Appears: Non-toxic, No Acute Distress, Chronically Ill - Head Exam Head Exam: ATRAUMATIC, NORMAL INSPECTION - Eye Exam Eye Exam: EOMI, Normal appearance - ENT Exam ENT Exam: Mucous Membranes Moist, Normal Exam - Neck Exam Neck Exam: Full ROM, Normal Inspection - Respiratory Exam Respiratory Exam: Clear to Ausculation Bilateral, NORMAL BREATHING PATTERN. absent: Rales, Wheezes - Cardiovascular Exam Cardiovascular Exam: REGULAR RHYTHM. absent: JVD - GI/Abdominal Exam GI & Abdominal Exam: Soft (mild distention), Normal Bowel Sounds. absent: Tenderness - Extremities Exam Extremities Exam: Full ROM, Normal Capillary Refill. absent: Pedal Edema - Neurological Exam Neurological Exam: Alert, Oriented x3 - Psychiatric Exam Psychiatric exam: Flat Affect, Normal Mood - Skin Skin Exam: Dry, Warm Assessment and Plan - Assessment and Plan (Free Text) Assessment: 61M RUL bx positive for squamous cell carcinoma, patient was informed and options discussed given his co-existing medical conditions. Although he was beign worked up at [facility] it is likely RT will be safest option at this time. Glucose is better controlled, otherwise awaiting placement as patient is homeless. Plan: - Awaiting Placement - RUL Mass: Squamous Cell Carcinoma - Cirrhosis: Spironolactone, Lactulose, Propanolol, Daily Weights - BPH: c/w Finasteride, FloMax - Schizophrenia: c/w Risperidone - DM: stable and will c/w Levemir 26U, Accu-check, Hypoglycemia bundle, SSI <Burke Harris - Last Filed: 09/09/16 15:52> Objective - Vital Signs/Intake and Output Vital Signs (last 24 hours): Temp Pulse Resp BP Pulse Ox 98.0 F 66 18 164/88 H 97 09/09/16 07:32 09/09/16 09:45 09/09/16 07:32 09/09/16 09:45 09/09/16 07:32 - Labs Labs: 09/09/16 06:44 09/09/16 06:44 PT 13.8 SECONDS (9.6-11.2) H 08/29/16 06:10 INR 1.33 (0.92-1.08) H 08/29/16 06:10 Assessment and Plan - Assessment and Plan (Free Text) Assessment: Patient was personally seen and examined by me in rounds with residents. Available labs and diagnostic data reviewed. Case, Patient's condition and management plan discussed with residents in rounds. Agree with resident's documentation. Plan: As ordered. Burke Harris MD
--- NOTE | 2016-09-01 08:51 | CP.PCM.PN ---
Subjective - Date & Time of Evaluation Date of Evaluation: 09/01/16 Time of Evaluation: 08:52 - Subjective Subjective: NO NEW CLINICAL FINDINGS LUNG BX-SQUAMOUS CELL CANCER Objective - Vital Signs/Intake and Output Vital Signs (last 24 hours): Temp Pulse Resp BP Pulse Ox 98.5 F 72 19 142/65 96 08/31/16 17:00 08/31/16 17:00 08/31/16 17:00 08/31/16 17:00 08/31/16 17:00 - Medications Medications: Current Medications Acetaminophen (Tylenol 325mg Tab) 650 mg PO Q6 PRN PRN Reason: Pain, Mild (1-3) Last Admin: 08/27/16 13:45 Dose: 650 mg Dextrose (Glutose 15) 0 gm PO ONCE PRN; Protocol PRN Reason: Hypoglycemia Protocol Dextrose (Dextrose 50% Inj) 0 ml IV STAT PRN; Protocol PRN Reason: Hyglycemia Protocol Finasteride (Proscar) 5 mg PO DAILY [facility] Last Admin: 08/31/16 09:04 Dose: 5 mg Furosemide (Lasix) 40 mg PO DAILY [facility] Last Admin: 08/22/16 08:50 Dose: 40 mg Glucagon (Glucagen Diagnostic Kit) 0 mg IM STAT PRN; Protocol PRN Reason: Hypoglycemia Protocol Sodium Chloride (Sodium Chloride 0.9%) 1,000 mls @ 0 mls/hr IV .Q0M [facility] PRN Reason: As Directed Insulin Detemir (Levemir) 26 units SC HS [facility] Last Admin: 08/31/16 21:54 Dose: 26 units Insulin Human Regular (Humulin R) 0 units SC ACHS [facility] PRN Reason: Protocol Last Admin: 09/01/16 06:41 Dose: Not Given Lactulose (Enulose) 30 gm PO TID [facility] Last Admin: 08/31/16 16:42 Dose: 30 gm Levothyroxine Sodium (Synthroid) 25 mcg PO 0630 [facility] Last Admin: 09/01/16 06:42 Dose: 25 mcg Nicotine (Nicoderm Cq) 1 patch TD DAILY [facility] Last Admin: 08/31/16 09:04 Dose: 1 patch Pantoprazole Sodium (Protonix Ec Tab) 40 mg PO DAILY [facility] Last Admin: 08/31/16 09:04 Dose: 40 mg Propranolol HCl (Inderal) 10 mg PO TID [facility] Last Admin: 08/31/16 16:48 Dose: 10 mg Risperidone (Risperdal Tab) 2 mg PO HS [facility] Last Admin: 08/31/16 21:54 Dose: 2 mg Spironolactone (Aldactone) 100 mg PO DAILY [facility] Last Admin: 08/31/16 09:03 Dose: 100 mg Tamsulosin HCl (Flomax) 0.4 mg PO HS [facility] Last Admin: 08/31/16 21:54 Dose: 0.4 mg - Labs Labs: 08/31/16 05:45 08/31/16 05:45 PT 13.8 SECONDS (9.6-11.2) H 08/29/16 06:10 INR 1.33 (0.92-1.08) H 08/29/16 06:10 - Constitutional Appears: No Acute Distress - Head Exam Head Exam: ATRAUMATIC, NORMAL INSPECTION, NORMOCEPHALIC - Eye Exam Eye Exam: EOMI, Normal appearance, PERRL Pupil Exam: NORMAL ACCOMODATION, PERRL - ENT Exam ENT Exam: Mucous Membranes Moist, Normal Exam - Neck Exam Neck Exam: Full ROM, Normal Inspection. absent: Lymphadenopathy - Respiratory Exam Respiratory Exam: Clear to Ausculation Bilateral, NORMAL BREATHING PATTERN - Cardiovascular Exam Cardiovascular Exam: REGULAR RHYTHM, +S1, +S2. absent: Murmur - GI/Abdominal Exam GI & Abdominal Exam: Distended, Soft, Normal Bowel Sounds. absent: Tenderness - Rectal Exam Rectal Exam: NORMAL INSPECTION - Extremities Exam Extremities Exam: Full ROM, Normal Capillary Refill, Normal Inspection. absent : Joint Swelling, Pedal Edema - Back Exam Back Exam: NORMAL INSPECTION - Neurological Exam Neurological Exam: Alert, Awake, CN II-XII Intact, Normal Gait, Oriented x3 - Psychiatric Exam Psychiatric exam: Normal Affect, Normal Mood - Skin Skin Exam: Dry, Intact, Normal Color, Warm Assessment and Plan - Assessment and Plan (Free Text) Assessment: CIRRHOSIS OF THE LIVER LUNG CANCER PANCYTOPENIA Plan: ONCOLOGY EVAL
[2016-09-01] MEDS: Lactulose 10 gm/15 ml Syrup PO SCH ×3 (09:03→16:04)
[2016-09-01] MEDS: Pantoprazole 40 mg EC Tab PO SCH (09:07)
--- NOTE | 2016-09-01 09:22 | CP.PCM.PN ---
Subjective - Date & Time of Evaluation Date of Evaluation: 09/01/16 Time of Evaluation: 09:13 - Subjective Subjective: Pt's lung biopsy showed a squamous cell cancer. Because of his hepatitis, cirrhosis,hypersplenism and pancytopenia. I dont think he will do well with chemotherapy because he may get even more pancytopenic. If he can be surgically resected ,after a lot of platelet transfusions, it would be his best option. If the surgeons refuse, then he will need RT only. I have discussed this with his sister, and she says she will try to get me records from [facility] where he was being worked up by GI and oncologist. She is also keen on him first getting into a skilled nursing before proceeding with treatment. Objective - Vital Signs/Intake and Output Vital Signs (last 24 hours): Temp Pulse Resp BP Pulse Ox 98.5 F 72 19 142/65 96 08/31/16 17:00 08/31/16 17:00 08/31/16 17:00 08/31/16 17:00 08/31/16 17:00 - Medications Medications: Current Medications Acetaminophen (Tylenol 325mg Tab) 650 mg PO Q6 PRN PRN Reason: Pain, Mild (1-3) Last Admin: 08/27/16 13:45 Dose: 650 mg Dextrose (Glutose 15) 0 gm PO ONCE PRN; Protocol PRN Reason: Hypoglycemia Protocol Dextrose (Dextrose 50% Inj) 0 ml IV STAT PRN; Protocol PRN Reason: Hyglycemia Protocol Finasteride (Proscar) 5 mg PO DAILY [facility] Last Admin: 09/01/16 09:07 Dose: 5 mg Furosemide (Lasix) 40 mg PO DAILY [facility] Last Admin: 08/22/16 08:50 Dose: 40 mg Glucagon (Glucagen Diagnostic Kit) 0 mg IM STAT PRN; Protocol PRN Reason: Hypoglycemia Protocol Sodium Chloride (Sodium Chloride 0.9%) 1,000 mls @ 0 mls/hr IV .Q0M [facility] PRN Reason: As Directed Insulin Detemir (Levemir) 26 units SC HS [facility] Last Admin: 08/31/16 21:54 Dose: 26 units Insulin Human Regular (Humulin R) 0 units SC ACHS [facility] PRN Reason: Protocol Last Admin: 09/01/16 06:41 Dose: Not Given Lactulose (Enulose) 30 gm PO TID [facility] Last Admin: 09/01/16 09:03 Dose: 30 gm Levothyroxine Sodium (Synthroid) 25 mcg PO 0630 [facility] Last Admin: 09/01/16 06:42 Dose: 25 mcg Nicotine (Nicoderm Cq) 1 patch TD DAILY [facility] Last Admin: 09/01/16 09:05 Dose: 1 patch Pantoprazole Sodium (Protonix Ec Tab) 40 mg PO DAILY [facility] Last Admin: 09/01/16 09:07 Dose: 40 mg Propranolol HCl (Inderal) 10 mg PO TID [facility] Last Admin: 09/01/16 09:04 Dose: 10 mg Risperidone (Risperdal Tab) 2 mg PO HS [facility] Last Admin: 08/31/16 21:54 Dose: 2 mg Spironolactone (Aldactone) 100 mg PO DAILY [facility] Last Admin: 09/01/16 09:03 Dose: 100 mg Tamsulosin HCl (Flomax) 0.4 mg PO HS [facility] Last Admin: 08/31/16 21:54 Dose: 0.4 mg - Labs Labs: 08/31/16 05:45 08/31/16 05:45 PT 13.8 SECONDS (9.6-11.2) H 08/29/16 06:10 INR 1.33 (0.92-1.08) H 08/29/16 06:10
[2016-09-01] MEDS: Insulin Detemir 100 Units/ml Inj SC SCH (21:40)
[2016-09-02] MEDS: Levothyroxine 25 MCG TAB PO SCH (06:49)
[2016-09-02] MEDS: Insulin Regular 100 units/ml SC SCH ×4 (06:50→21:32)
--- NOTE | 2016-09-02 08:12 | PN ---
DATE: 09/02/2016 The patient seen and examined. Interim events noted. Consults noted, appreciated. Pulmonary and on cology followup and intervention noted and appreciated. Case discussed with the patient and the addie ent's sister at length. Diagnosed of cancer, and options, and difficulty in treatment explained. The patient feels okay. No specific pain. No chest pain or shortness of breath. PHYSICAL EXAMINATION: The patient is in no acute distress. VITAL SIGNS: Stable. HEART EXAMINATION: S1, S2 normal, regular. LUNGS: Good bilateral air exchange. ABDOMEN: Soft, nontender. . EXTREMITY EXAMINATION: No calf swelling, no tenderness, no acute ischemia. CENTRAL NERVOUS SYSTEM EXAMINATION: Essentially unchanged. DIAGNOSTIC DATA: Available diagnostic data reviewed. Overall, the patient's general medical condition is stable, although long-term prognosis remains poor due to underlying cancer, and difficulty of treatment of to advanced liver disease. PLAN: As ordered. Burke Harris MD cc: [id number] TT: 09/02/2016 08:11:44 Confirmation # [id number] Dictation # [id number]
[2016-09-02] MEDS: Pantoprazole 40 mg EC Tab PO SCH (09:37)
[2016-09-02] MEDS: Lactulose 10 gm/15 ml Syrup PO SCH ×3 (09:38→18:08)
[2016-09-02] MEDS: Insulin Detemir 100 Units/ml Inj SC SCH ×3 (09:39→21:32)
--- NOTE | 2016-09-02 09:43 | CP.PCM.PN ---
Subjective - Date & Time of Evaluation Date of Evaluation: 09/02/16 Time of Evaluation: 09:37 - Subjective Subjective: Pt is feeling fine and has no complaints. We are waiting for custodial placement. JULY was contacted by the [facility] and was told that pt had appointments with different doctors there prior to Surgery, but had never been there, and so we should continue the treatment here. I discussed this with the patient, that the RT seems to be the only treatment we can safely do now. He agrees to it and I will make arrangements for RT at [facility] as soon as possible if the pt 's sister approves. She had wanted to see which custodial he was being transferred to before we made arrangements for the RT, Objective - Vital Signs/Intake and Output Vital Signs (last 24 hours): Temp Pulse Resp BP Pulse Ox 98.4 F 71 18 104/57 L 96 09/02/16 07:35 09/02/16 07:35 09/02/16 07:35 09/02/16 07:35 09/02/16 07:35 - Medications Medications: Current Medications Acetaminophen (Tylenol 325mg Tab) 650 mg PO Q6 PRN PRN Reason: Pain, Mild (1-3) Last Admin: 08/27/16 13:45 Dose: 650 mg Dextrose (Glutose 15) 0 gm PO ONCE PRN; Protocol PRN Reason: Hypoglycemia Protocol Dextrose (Dextrose 50% Inj) 0 ml IV STAT PRN; Protocol PRN Reason: Hyglycemia Protocol Finasteride (Proscar) 5 mg PO DAILY [facility] Last Admin: 09/01/16 09:07 Dose: 5 mg Furosemide (Lasix) 40 mg PO DAILY [facility] Last Admin: 08/22/16 08:50 Dose: 40 mg Glucagon (Glucagen Diagnostic Kit) 0 mg IM STAT PRN; Protocol PRN Reason: Hypoglycemia Protocol Sodium Chloride (Sodium Chloride 0.9%) 1,000 mls @ 0 mls/hr IV .Q0M [facility] PRN Reason: As Directed Insulin Detemir (Levemir) 28 units SC HS [facility] Insulin Human Regular (Humulin R) 0 units SC ACHS [facility] PRN Reason: Protocol Last Admin: 09/02/16 06:50 Dose: Not Given Lactulose (Enulose) 30 gm PO TID [facility] Last Admin: 09/01/16 16:04 Dose: 30 gm Levothyroxine Sodium (Synthroid) 25 mcg PO 0630 [facility] Last Admin: 09/02/16 06:49 Dose: 25 mcg Nicotine (Nicoderm Cq) 1 patch TD DAILY [facility] Last Admin: 09/01/16 09:05 Dose: 1 patch Pantoprazole Sodium (Protonix Ec Tab) 40 mg PO DAILY [facility] Last Admin: 09/01/16 09:07 Dose: 40 mg Propranolol HCl (Inderal) 10 mg PO TID [facility] Last Admin: 09/01/16 16:05 Dose: 10 mg Risperidone (Risperdal Tab) 2 mg PO HS [facility] Last Admin: 09/01/16 21:19 Dose: 2 mg Spironolactone (Aldactone) 100 mg PO DAILY [facility] Last Admin: 09/01/16 09:03 Dose: 100 mg Tamsulosin HCl (Flomax) 0.4 mg PO HS [facility] Last Admin: 09/01/16 21:19 Dose: 0.4 mg - Labs Labs: 08/31/16 05:45 08/31/16 05:45 PT 13.8 SECONDS (9.6-11.2) H 08/29/16 06:10 INR 1.33 (0.92-1.08) H 08/29/16 06:10
--- NOTE | 2016-09-02 11:18 | CP.PCM.PN ---
Subjective - Date & Time of Evaluation Date of Evaluation: 09/02/16 Time of Evaluation: 11:18 - Subjective Subjective: NO NEW CLINICAL FINDINGS NO SOB/CHEST PAINS PT POSES HIGH RISK FOR MORBIDITY/MORTALITY FOR PULMONARY SURGERY TO RESECT LUNG MASS IN VIEW OF MULTIPLE MEDICAL COMORBIDITIES WILL ADVOCATE RADIATION THERAPY TO LUNG MASS PROGNOSIS IS POOR NO FURTHER PULMONARY INTERVENTION FOR NOW WILL SIGN OFF CASE AND SEE AGAIN AT YOUR REQUEST Objective - Vital Signs/Intake and Output Vital Signs (last 24 hours): Temp Pulse Resp BP Pulse Ox 98.4 F 71 16 104/57 L 96 09/02/16 09:00 09/02/16 09:37 09/02/16 09:00 09/02/16 09:37 09/02/16 09:00 - Medications Medications: Current Medications Acetaminophen (Tylenol 325mg Tab) 650 mg PO Q6 PRN PRN Reason: Pain, Mild (1-3) Last Admin: 08/27/16 13:45 Dose: 650 mg Dextrose (Glutose 15) 0 gm PO ONCE PRN; Protocol PRN Reason: Hypoglycemia Protocol Dextrose (Dextrose 50% Inj) 0 ml IV STAT PRN; Protocol PRN Reason: Hyglycemia Protocol Finasteride (Proscar) 5 mg PO DAILY [facility] Last Admin: 09/02/16 09:36 Dose: 5 mg Furosemide (Lasix) 40 mg PO DAILY [facility] Last Admin: 08/22/16 08:50 Dose: 40 mg Glucagon (Glucagen Diagnostic Kit) 0 mg IM STAT PRN; Protocol PRN Reason: Hypoglycemia Protocol Sodium Chloride (Sodium Chloride 0.9%) 1,000 mls @ 0 mls/hr IV .Q0M [facility] PRN Reason: As Directed Insulin Detemir (Levemir) 28 units SC HS@2200 [facility] Insulin Human Regular (Humulin R) 0 units SC ACHS [facility] PRN Reason: Protocol Last Admin: 09/02/16 06:50 Dose: Not Given Lactulose (Enulose) 30 gm PO TID [facility] Last Admin: 09/02/16 09:38 Dose: 30 gm Levothyroxine Sodium (Synthroid) 25 mcg PO 0630 [facility] Last Admin: 09/02/16 06:49 Dose: 25 mcg Nicotine (Nicoderm Cq) 1 patch TD DAILY [facility] Last Admin: 09/02/16 09:39 Dose: 1 patch Pantoprazole Sodium (Protonix Ec Tab) 40 mg PO DAILY [facility] Last Admin: 09/02/16 09:37 Dose: 40 mg Propranolol HCl (Inderal) 10 mg PO TID [facility] Last Admin: 09/02/16 09:37 Dose: 10 mg Risperidone (Risperdal Tab) 2 mg PO HS [facility] Last Admin: 09/01/16 21:19 Dose: 2 mg Spironolactone (Aldactone) 100 mg PO DAILY [facility] Last Admin: 09/02/16 09:37 Dose: 100 mg Tamsulosin HCl (Flomax) 0.4 mg PO HS [facility] Last Admin: 09/01/16 21:19 Dose: 0.4 mg - Labs Labs: 08/31/16 05:45 08/31/16 05:45 PT 13.8 SECONDS (9.6-11.2) H 08/29/16 06:10 INR 1.33 (0.92-1.08) H 08/29/16 06:10
[2016-09-03] MEDS: Levothyroxine 25 MCG TAB PO SCH (06:38)
[2016-09-03] MEDS: Insulin Regular 100 units/ml SC SCH ×4 (07:22→21:42)
--- NOTE | 2016-09-03 08:24 | PN ---
DATE: 09/03/2016 The patient seen and examined. Interim events noted. Consults noted and appreciated. Oncology and pulmonary followup and intervention noted and appreciated. The patient remains on regular medical fl oor. The patient feels okay. No specific complaint, no chest pain or shortness of breath. PHYSICAL EXAMINATION: GENERAL: The patient is in no acute distress. VITAL SIGNS: Stable. HEART: S1, S2 normal, regular. LUNGS: Good bilateral air entry. ABDOMEN: Soft, nontender. EXTREMITIES: No edema, no calf swelling, no tenderness, no acute ischemia. CENTRAL NERVOUS SYSTEM: Essentially unchanged. DIAGNOSTIC DATA: Available diagnostic data reviewed. ____ , the patient is ____ therapy as any surgical intervention deemed very risky because of the addie ent's underlying condition. Case and plan discussed with patient and patient's prison and patient's sister. Plan as ordered . Burke Harris MD cc: [id number] TT: 09/03/2016 08:23:50 Confirmation # [id number] Dictation # [id number] [email or web address]
[2016-09-03] MEDS: Pantoprazole 40 mg EC Tab PO SCH (08:58)
[2016-09-03] MEDS: Lactulose 10 gm/15 ml Syrup PO SCH ×5 (08:59→17:49)
[2016-09-03] MEDS: Insulin Detemir 100 Units/ml Inj SC SCH (21:43)
[2016-09-04] MEDS: Insulin Regular 100 units/ml SC SCH ×5 (07:29→22:24)
[2016-09-04] MEDS: Levothyroxine 25 MCG TAB PO SCH (07:29)
[2016-09-04] MEDS: Insulin Detemir 100 Units/ml Inj SC SCH ×2 (07:33→22:21)
[2016-09-04] MEDS: Pantoprazole 40 mg EC Tab PO SCH (08:33)
[2016-09-04] MEDS: Lactulose 10 gm/15 ml Syrup PO SCH ×4 (08:34→16:42)
--- NOTE | 2016-09-04 09:25 | PN ---
DATE: 09/04/2016 The patient seen and examined. Interim events noted. The patient is awake, responsive, ambulatory, doing his ADLs without any problem. Feels okay, no specific complaint. No chest pain or shortness o f breath. PHYSICAL EXAMINATION: GENERAL: The patient is in no acute distress. VITAL SIGNS: Stable. HEART: S1, S2 normal, regular. LUNGS: Good bilateral air entry. ABDOMEN: Soft, nontender. EXTREMITIES: No edema, no calf swelling, no tenderness, no acute ischemia. CENTRAL NERVOUS SYSTEM: Essentially unchanged. DIAGNOSTIC DATA: Available reviewed. Overall, patient's general medical condition seems to be hemodynamically stable, although long-term p rognosis remains poor. PLAN: As ordered. Burke Harris MD cc: [id number] TT: 09/04/2016 09:24:32 Confirmation # [id number] Dictation # [id number] en
[2016-09-05] MEDS: Levothyroxine 25 MCG TAB PO SCH (05:35)
[2016-09-05 06:04] LABS: HEMATOCRIT 31.9 % (35.0-51.0); MEAN CELL VOLUME 89.2 fl (80.0-94.0); MEAN CORPUSCULAR HEMOGLOBIN 29.4 pg (27.0-31.0); WHITE BLOOD COUNT 4.8 K/uL (4.8-10.8)
[2016-09-05 06:13] LABS: ALB/GLOB RATIO 0.9 (1.0-2.1); ALKALINE PHOSPHATASE 196 U/L (38-126); ALT/SGPT 56 U/L (21-72); AST/SGOT 63 U/L (17-59); BILIRUBIN,TOTAL 1.9 mg/dl (0.2-1.3); BLOOD UREA NITROGEN 32 mg/dl (9-20); CALCIUM 9.2 mg/dL (8.4-10.2); CARBON DIOXIDE 16 mmol/L (22-30); CHLORIDE 113 mmol/L (98-107); GFR AFRICAN-AMERICAN > 60; GLUCOSE,RANDOM 83 mg/dL (75-110); POTASSIUM 4.8 MMOL/L (3.6-5.0); SODIUM 144 mmol/l (132-148); TOTAL PROTEIN 7.1 G/DL (6.3-8.2)
--- NOTE | 2016-09-05 08:10 | PN ---
DATE: 09/05/2016 The patient seen and examined. Interim events noted. The patient remains on medical floor. The pat ient feels okay. Denies any specific complaint. No chest pain or shortness of breath. PHYSICAL EXAMINATION: GENERAL: The patient is in no acute distress. VITAL SIGNS: Stable. HEART: S1, S2 normal, regular. LUNGS: Good bilateral air entry. ABDOMEN: Soft, nontender. EXTREMITIES: No edema, no calf swelling, no tenderness. No acute ischemia. CENTRAL NERVOUS SYSTEM: Essentially unchanged. No sign of acute abdomen. No guarding, no rigidity, no rebound. The patient has chronic gastritis. PLAN: As ordered. Burke Harris MD cc: [id number] TT: 09/05/2016 08:09:53 Confirmation # [id number] Dictation # [id number] elizabeth
[2016-09-05] MEDS: Insulin Regular 100 units/ml SC SCH ×5 (09:12→22:00)
[2016-09-05] MEDS: Lactulose 10 gm/15 ml Syrup PO SCH ×3 (09:12→16:13)
[2016-09-05] MEDS: Pantoprazole 40 mg EC Tab PO SCH (09:14)
--- NOTE | 2016-09-05 11:22 | CP.PCM.PN ---
Subjective - Date & Time of Evaluation Date of Evaluation: 09/05/16 Time of Evaluation: 11:20 - Subjective Subjective: Pt is feeling well. ambulating well.. A decision was made to start his RT now. His placement may take a long time. Will make arrangements for the same. Objective - Vital Signs/Intake and Output Vital Signs (last 24 hours): Temp Pulse Resp BP Pulse Ox 98.1 F 87 20 129/73 98 09/05/16 07:37 09/05/16 09:13 09/05/16 07:37 09/05/16 09:13 09/05/16 07:37 - Medications Medications: Current Medications Dextrose (Glutose 15) 0 gm PO ONCE PRN; Protocol PRN Reason: Hypoglycemia Protocol Dextrose (Dextrose 50% Inj) 0 ml IV STAT PRN; Protocol PRN Reason: Hyglycemia Protocol Finasteride (Proscar) 5 mg PO DAILY [facility] Last Admin: 09/05/16 09:14 Dose: 5 mg Furosemide (Lasix) 40 mg PO DAILY [facility] Last Admin: 08/22/16 08:50 Dose: 40 mg Glucagon (Glucagen Diagnostic Kit) 0 mg IM STAT PRN; Protocol PRN Reason: Hypoglycemia Protocol Sodium Chloride (Sodium Chloride 0.9%) 1,000 mls @ 0 mls/hr IV .Q0M [facility] PRN Reason: As Directed Insulin Detemir (Levemir) 30 units SC HS@2200 [facility] Last Admin: 09/04/16 22:21 Dose: 30 units Insulin Human Regular (Humulin R) 0 units SC ACHS [facility] PRN Reason: Protocol Last Admin: 09/05/16 09:12 Dose: Not Given Lactulose (Enulose) 30 gm PO TID [facility] [place] Last Admin: 09/05/16 09:12 Dose: 30 gm Levothyroxine Sodium (Synthroid) 25 mcg PO 0630 [facility] Last Admin: 09/05/16 05:35 Dose: 25 mcg Nicotine (Nicoderm Cq) 1 patch TD DAILY [facility] [place] Last Admin: 09/05/16 09:14 Dose: 1 patch Pantoprazole Sodium (Protonix Ec Tab) 40 mg PO DAILY [facility] Last Admin: 09/05/16 09:14 Dose: 40 mg Propranolol HCl (Inderal) 10 mg PO TID [facility] Last Admin: 09/05/16 09:13 Dose: 10 mg Risperidone (Risperdal Tab) 2 mg PO HS [facility] Last Admin: 09/04/16 22:20 Dose: 2 mg Spironolactone (Aldactone) 100 mg PO DAILY [facility] Last Admin: 09/05/16 09:12 Dose: 100 mg Tamsulosin HCl (Flomax) 0.4 mg PO [facility] Last Admin: 09/04/16 22:21 Dose: 0.4 mg - Labs Labs: 09/05/16 05:45 09/05/16 05:45 PT 13.8 SECONDS (9.6-11.2) H 08/29/16 06:10 INR 1.33 (0.92-1.08) H 08/29/16 06:10
[2016-09-05] MEDS: Insulin Detemir 100 Units/ml Inj SC SCH (21:09)
[2016-09-06] MEDS: Insulin Regular 100 units/ml SC SCH ×4 (06:32→22:07)
[2016-09-06] MEDS: Lactulose 10 gm/15 ml Syrup PO SCH ×3 (08:16→17:51)
[2016-09-06] MEDS: Levothyroxine 25 MCG TAB PO SCH (08:17)
[2016-09-06] MEDS: Pantoprazole 40 mg EC Tab PO SCH (08:17)
--- NOTE | 2016-09-06 09:28 | CP.PCM.PN ---
<Kathia Dukes - Last Filed: 09/06/16 17:16> Subjective - Date & Time of Evaluation Date of Evaluation: 09/06/16 Time of Evaluation: 07:15 - Subjective Subjective: 61M seen and examined at bedside with attending. Pt has no acute complaints and is aware he is going for RT evaluation. Denies SOB, chest pain, abdominal pain. Objective - Vital Signs/Intake and Output Vital Signs (last 24 hours): Temp Pulse Resp BP Pulse Ox 37.1 C 72 20 109/60 98 09/06/16 08:31 09/06/16 08:31 09/06/16 08:31 09/06/16 08:31 09/06/16 08:31 - Medications Medications: Current Medications Dextrose (Glutose 15) 0 gm PO ONCE PRN; Protocol PRN Reason: Hypoglycemia Protocol Dextrose (Dextrose 50% Inj) 0 ml IV STAT PRN; Protocol PRN Reason: Hyglycemia Protocol Finasteride (Proscar) 5 mg PO DAILY [facility] Last Admin: 09/06/16 08:17 Dose: 5 mg Furosemide (Lasix) 40 mg PO DAILY [facility] Last Admin: 08/22/16 08:50 Dose: 40 mg Glucagon (Glucagen Diagnostic Kit) 0 mg IM STAT PRN; Protocol PRN Reason: Hypoglycemia Protocol Sodium Chloride (Sodium Chloride 0.9%) 1,000 mls @ 0 mls/hr IV .Q0M [facility] PRN Reason: As Directed Insulin Detemir (Levemir) 30 units SC HS@2200 [facility] Last Admin: 09/05/16 21:09 Dose: 30 units Insulin Human Regular (Humulin R) 0 units SC ACHS [facility] PRN Reason: Protocol Last Admin: 09/06/16 06:32 Dose: Not Given Lactulose (Enulose) 30 gm PO TID [facility] Last Admin: 09/06/16 08:16 Dose: 30 gm Levothyroxine Sodium (Synthroid) 25 mcg PO 0630 [facility] Last Admin: 09/06/16 08:17 Dose: 25 mcg Nicotine (Nicoderm Cq) 1 patch TD DAILY [facility] Last Admin: 09/05/16 09:14 Dose: 1 patch Pantoprazole Sodium (Protonix Ec Tab) 40 mg PO DAILY [facility] Last Admin: 09/06/16 08:17 Dose: 40 mg Propranolol HCl (Inderal) 10 mg PO TID [facility] Last Admin: 09/06/16 08:16 Dose: 10 mg Risperidone (Risperdal Tab) 2 mg PO HS [facility] Last Admin: 09/05/16 21:08 Dose: 2 mg Spironolactone (Aldactone) 100 mg PO DAILY [facility] Last Admin: 09/06/16 08:17 Dose: 100 mg Tamsulosin HCl (Flomax) 0.4 mg PO HS [facility] Last Admin: 09/05/16 21:08 Dose: 0.4 mg - Labs Labs: 09/05/16 05:45 09/05/16 05:45 PT 13.8 SECONDS (9.6-11.2) H 08/29/16 06:10 INR 1.33 (0.92-1.08) H 08/29/16 06:10 - Constitutional Appears: Well, No Acute Distress - Head Exam Head Exam: ATRAUMATIC, NORMAL INSPECTION - Eye Exam Eye Exam: EOMI, Normal appearance - ENT Exam ENT Exam: Mucous Membranes Moist, Normal Exam - Respiratory Exam Respiratory Exam: Clear to Ausculation Bilateral, NORMAL BREATHING PATTERN - Cardiovascular Exam Cardiovascular Exam: REGULAR RHYTHM. absent: JVD - GI/Abdominal Exam GI & Abdominal Exam: Soft, Normal Bowel Sounds. absent: Tenderness - Extremities Exam Extremities Exam: Normal Capillary Refill. absent: Pedal Edema - Neurological Exam Neurological Exam: Alert, Awake, Oriented x3 - Psychiatric Exam Psychiatric exam: Normal Affect, Normal Mood - Skin Skin Exam: Normal Color, Warm Assessment and Plan - Assessment and Plan (Free Text) Assessment: 61M RUL bx positive for squamous cell carcinoma, patient aware of treatment plan. Glucose is better controlled, otherwise awaiting placement as patient is currently homeless. Plan: - Awaiting reply from State, all paperwork has been submitted - RUL Mass: Squamous Cell Carcinoma, being evaluated for RT - Cirrhosis: Spironolactone, Lactulose, Propanolol, Daily Weights - BPH: c/w Finasteride, FloMax - Schizophrenia: c/w Risperidone - DM: stable and will c/w Levemir 26U, Accu-check, Hypoglycemia bundle, SSI <Harris,Burke K - Last Filed: 09/09/16 15:56> Objective - Vital Signs/Intake and Output Vital Signs (last 24 hours): Temp Pulse Resp BP Pulse Ox 98.0 F 66 18 164/88 H 97 09/09/16 07:32 04/21/17 09:45 09/09/16 07:32 09/09/16 09:45 09/09/16 07:32 - Labs Labs: 09/09/16 06:44 09/09/16 06:44 PT 13.8 SECONDS (9.6-11.2) H 08/29/16 06:10 INR 1.33 (0.92-1.08) H 08/29/16 06:10 Assessment and Plan - Assessment and Plan (Free Text) Assessment: Patient was personally seen and examined by me in rounds with residents. Available labs and diagnostic data reviewed. Case, Patient's condition and management plan discussed with residents in rounds. Agree with resident's documentation. Plan: As ordered. Burke Harris MD
--- NOTE | 2016-09-06 11:49 | CP.PCM.PN ---
Subjective - Date & Time of Evaluation Date of Evaluation: 09/06/16 Time of Evaluation: 11:47 - Subjective Subjective: Pt is feeling well. His iron and B12 studies are normal. Will start him on procrit weekly. Objective - Vital Signs/Intake and Output Vital Signs (last 24 hours): Temp Pulse Resp BP Pulse Ox 98.7 F 72 20 109/60 98 09/06/16 08:31 09/06/16 08:31 09/06/16 08:31 09/06/16 08:31 09/06/16 08:31 - Medications Medications: Current Medications Dextrose (Glutose 15) 0 gm PO ONCE PRN; Protocol PRN Reason: Hypoglycemia Protocol Dextrose (Dextrose 50% Inj) 0 ml IV STAT PRN; Protocol PRN Reason: Hyglycemia Protocol Finasteride (Proscar) 5 mg PO DAILY [facility] Last Admin: 09/06/16 08:17 Dose: 5 mg Furosemide (Lasix) 40 mg PO DAILY [facility] Last Admin: 08/22/16 08:50 Dose: 40 mg Glucagon (Glucagen Diagnostic Kit) 0 mg IM STAT PRN; Protocol PRN Reason: Hypoglycemia Protocol Sodium Chloride (Sodium Chloride 0.9%) 1,000 mls @ 0 mls/hr IV .Q0M [facility] PRN Reason: As Directed Insulin Detemir (Levemir) 30 units SC HS@2200 [facility] Last Admin: 09/05/16 21:09 Dose: 30 units Insulin Human Regular (Humulin R) 0 units SC ACHS [facility] PRN Reason: Protocol Last Admin: 09/06/16 06:32 Dose: Not Given Lactulose (Enulose) 30 gm PO TID [facility] Last Admin: 09/06/16 08:16 Dose: 30 gm Levothyroxine Sodium (Synthroid) 25 mcg PO 0630 [facility] Last Admin: 09/06/16 08:17 Dose: 25 mcg Nicotine (Nicoderm Cq) 1 patch TD DAILY [facility] Last Admin: 09/05/16 09:14 Dose: 1 patch Pantoprazole Sodium (Protonix Ec Tab) 40 mg PO DAILY [facility] Last Admin: 09/06/16 08:17 Dose: 40 mg Propranolol HCl (Inderal) 10 mg PO TID [facility] Last Admin: 09/06/16 08:16 Dose: 10 mg Risperidone (Risperdal Tab) 2 mg PO HS [facility] Last Admin: 09/05/16 21:08 Dose: 2 mg Spironolactone (Aldactone) 100 mg PO DAILY [facility] Last Admin: 09/06/16 08:17 Dose: 100 mg Tamsulosin HCl (Flomax) 0.4 mg PO [facility] Last Admin: 09/05/16 21:08 Dose: 0.4 mg - Labs Labs: 09/05/16 05:45 09/05/16 05:45 PT 13.8 SECONDS (9.6-11.2) H 08/29/16 06:10 INR 1.33 (0.92-1.08) H 08/29/16 06:10
[2016-09-06] MEDS: Insulin Detemir 100 Units/ml Inj SC SCH (22:40)
[2016-09-07] MEDS: Levothyroxine 25 MCG TAB PO SCH (06:27)
[2016-09-07] MEDS: Insulin Regular 100 units/ml SC SCH ×4 (07:05→22:29)
[2016-09-07] MEDS: Lactulose 10 gm/15 ml Syrup PO SCH ×3 (08:43→15:59)
[2016-09-07] MEDS: Pantoprazole 40 mg EC Tab PO SCH (08:43)
--- NOTE | 2016-09-07 10:25 | CP.PCM.PN ---
<Kathia Dukes - Last Filed: 09/07/16 16:50> Subjective - Date & Time of Evaluation Date of Evaluation: 09/07/16 Time of Evaluation: 07:30 - Subjective Subjective: 61M seen and examined at bedside with attending. Pt has no acute complaints, seems cheerful and denies SOB, chest pain, abdominal pain. Objective - Vital Signs/Intake and Output Vital Signs (last 24 hours): Temp Pulse Resp BP Pulse Ox 36.9 C 70 20 139/74 98 09/07/16 08:21 09/07/16 08:21 09/07/16 08:21 09/07/16 08:21 09/07/16 08:21 - Medications Medications: Current Medications Dextrose (Glutose 15) 0 gm PO ONCE PRN; Protocol PRN Reason: Hypoglycemia Protocol Dextrose (Dextrose 50% Inj) 0 ml IV STAT PRN; Protocol PRN Reason: Hyglycemia Protocol Finasteride (Proscar) 5 mg PO DAILY [facility] Last Admin: 09/07/16 08:42 Dose: 5 mg Furosemide (Lasix) 40 mg PO DAILY [facility] Last Admin: 08/22/16 08:50 Dose: 40 mg Glucagon (Glucagen Diagnostic Kit) 0 mg IM STAT PRN; Protocol PRN Reason: Hypoglycemia Protocol Sodium Chloride (Sodium Chloride 0.9%) 1,000 mls @ 0 mls/hr IV .Q0M [facility] PRN Reason: As Directed Insulin Detemir (Levemir) 30 units SC HS@2200 [facility] Last Admin: 09/06/16 22:40 Dose: 30 units Insulin Human Regular (Humulin R) 0 units SC ACHS [facility] PRN Reason: Protocol Last Admin: 09/07/16 07:05 Dose: Not Given Lactulose (Enulose) 30 gm PO TID [facility] Last Admin: 09/07/16 08:43 Dose: 30 gm Levothyroxine Sodium (Synthroid) 25 mcg PO 0630 [facility] Last Admin: 09/07/16 06:27 Dose: 25 mcg Nicotine (Nicoderm Cq) 1 patch TD DAILY [facility] Last Admin: 09/07/16 08:44 Dose: 1 patch Pantoprazole Sodium (Protonix Ec Tab) 40 mg PO DAILY [facility] Last Admin: 09/07/16 08:43 Dose: 40 mg Propranolol HCl (Inderal) 10 mg PO TID [facility] Last Admin: 09/07/16 08:43 Dose: 10 mg Risperidone (Risperdal Tab) 2 mg PO HS [facility] Last Admin: 09/06/16 22:38 Dose: 2 mg Spironolactone (Aldactone) 100 mg PO DAILY [facility] Last Admin: 09/07/16 08:44 Dose: 100 mg Tamsulosin HCl (Flomax) 0.4 mg PO HS [facility] Last Admin: 09/06/16 22:38 Dose: 0.4 mg - Labs Labs: 09/05/16 05:45 09/05/16 05:45 PT 13.8 SECONDS (9.6-11.2) H 08/29/16 06:10 INR 1.33 (0.92-1.08) H 08/29/16 06:10 - Constitutional Appears: Well, Non-toxic, No Acute Distress - Head Exam Head Exam: ATRAUMATIC, NORMAL INSPECTION - Eye Exam Eye Exam: EOMI, Normal appearance - ENT Exam ENT Exam: Mucous Membranes Moist, Normal Exam - Neck Exam Neck Exam: Full ROM, Normal Inspection - Respiratory Exam Respiratory Exam: Clear to Ausculation Bilateral, NORMAL BREATHING PATTERN. absent: Rales, Wheezes - Cardiovascular Exam Cardiovascular Exam: REGULAR RHYTHM. absent: JVD - GI/Abdominal Exam GI & Abdominal Exam: Soft, Hernia (reducible), Normal Bowel Sounds. absent: Tenderness - Extremities Exam Extremities Exam: Normal Capillary Refill. absent: Pedal Edema - Neurological Exam Neurological Exam: Alert, Awake - Psychiatric Exam Psychiatric exam: Normal Affect, Normal Mood - Skin Skin Exam: Intact, Normal Color Assessment and Plan - Assessment and Plan (Free Text) Assessment: 61M RUL SQCC, to start RT tomorrow. Chronic conditions are currently well- controlled. Awaiting reply from [facility] regarding placement. Plan: - Awaiting reply from [facility], all paperwork has been submitted - RUL Mass: Squamous Cell Carcinoma, RT to start tomorrow - Cirrhosis: Spironolactone, Lactulose, Propanolol, Daily Weights - BPH: c/w Finasteride, FloMax - Schizophrenia: c/w Risperidone - DM: stable and will c/w Levemir 26U, Accu-check, Hypoglycemia bundle, SSI <Hraris,Burke K - Last Filed: 09/09/16 15:59> Objective - Vital Signs/Intake and Output Vital Signs (last 24 hours): Temp Pulse Resp BP Pulse Ox 98.0 F 66 18 164/88 H 97 09/09/16 07:32 09/09/16 09:45 09/09/16 07:32 09/09/16 09:45 09/09/16 07:32 - Labs Labs: 09/09/16 06:44 09/09/16 06:44 PT 13.8 SECONDS (9.6-11.2) H 08/29/16 06:10 INR 1.33 (0.92-1.08) H 08/29/16 06:10 Assessment and Plan - Assessment and Plan (Free Text) Assessment: Patient was personally seen and examined by me in rounds with residents. Available labs and diagnostic data reviewed. Case, Patient's condition and management plan discussed with residents in rounds. Agree with resident's documentation. Plan: As ordered. Burke Harris MD
--- NOTE | 2016-09-07 13:56 | CP.PCM.PN ---
Subjective - Date & Time of Evaluation Date of Evaluation: 09/07/16 Time of Evaluation: 13:54 - Subjective Subjective: Pt is going to be simulated for RT today and start the RT tomorrow. Objective - Vital Signs/Intake and Output Vital Signs (last 24 hours): Temp Pulse Resp BP Pulse Ox 98.5 F 70 20 139/74 98 09/07/16 08:21 09/07/16 08:21 09/07/16 08:21 09/07/16 08:21 09/07/16 08:21 - Medications Medications: Current Medications Dextrose (Glutose 15) 0 gm PO ONCE PRN; Protocol PRN Reason: Hypoglycemia Protocol Dextrose (Dextrose 50% Inj) 0 ml IV STAT PRN; Protocol PRN Reason: Hyglycemia Protocol Finasteride (Proscar) 5 mg PO DAILY [facility] Last Admin: 09/07/16 08:42 Dose: 5 mg Furosemide (Lasix) 40 mg PO DAILY [facility] Last Admin: 08/22/16 08:50 Dose: 40 mg Glucagon (Glucagen Diagnostic Kit) 0 mg IM STAT PRN; Protocol PRN Reason: Hypoglycemia Protocol Sodium Chloride (Sodium Chloride 0.9%) 1,000 mls @ 0 mls/hr IV .Q0M [facility] PRN Reason: As Directed Insulin Detemir (Levemir) 30 units SC HS@2200 [facility] Last Admin: 09/06/16 22:40 Dose: 30 units Insulin Human Regular (Humulin R) 0 units SC ACHS [facility] PRN Reason: Protocol Last Admin: 09/07/16 11:16 Dose: 3 units Lactulose (Enulose) 30 gm PO TID [facility] Last Admin: 09/07/16 12:31 Dose: 30 gm Levothyroxine Sodium (Synthroid) 25 mcg PO 0630 [facility] Last Admin: 09/07/16 06:27 Dose: 25 mcg Nicotine (Nicoderm Cq) 1 patch TD DAILY [facility] Last Admin: 09/07/16 08:44 Dose: 1 patch Pantoprazole Sodium (Protonix Ec Tab) 40 mg PO DAILY [facility] Last Admin: 09/07/16 08:43 Dose: 40 mg Propranolol HCl (Inderal) 10 mg PO TID [facility] Last Admin: 09/07/16 12:31 Dose: 10 mg Risperidone (Risperdal Tab) 2 mg PO HS [facility] Last Admin: 09/06/16 22:38 Dose: 2 mg Spironolactone (Aldactone) 100 mg PO DAILY [facility] Last Admin: 09/07/16 08:44 Dose: 100 mg Tamsulosin HCl (Flomax) 0.4 mg PO [facility] Last Admin: 09/06/16 22:38 Dose: 0.4 mg - Labs Labs: 09/05/16 05:45 09/05/16 05:45 PT 13.8 SECONDS (9.6-11.2) H 08/29/16 06:10 INR 1.33 (0.92-1.08) H 08/29/16 06:10
[2016-09-07] MEDS: Insulin Detemir 100 Units/ml Inj SC SCH (22:31)
[2016-09-08] MEDS: Levothyroxine 25 MCG TAB PO SCH (06:25)
[2016-09-08] MEDS: Insulin Regular 100 units/ml SC SCH ×4 (06:45→21:29)
--- NOTE | 2016-09-08 08:16 | PN ---
DATE: 09/08/2016 The patient seen and examined. Interim events noted. Consults noted, appreciated. Oncology followu p and intervention noted and appreciated. The patient remains on regular medical floor. Had radiati on evaluation done. Possibly starting radiation therapy today. The patient is sleepy, arousable, fe els okay. No specific complaint of chest pain or shortness of breath. No specific issue reported by nursing staff. PHYSICAL EXAMINATION: GENERAL: The patient is in no acute distress. VITAL SIGNS: Stable. HEART: S1, S2 normal, regular. LUNGS: Good bilateral air entry. ABDOMEN: Soft, nontender. The patient has ascites from alcoholic hepatitis and cirrhosis. EXTREMITIES: No edema, no calf swelling, no tenderness, no acute ischemia. CENTRAL NERVOUS SYSTEM: Essentially unchanged. DIAGNOSTIC DATA: Available diagnostic data reviewed. Accu-Cheks are slightly high. Overall, patient's general medical condition is stable, although long-term prognosis remains poor due to underlying diseases. PLAN: As ordered. Burke Harris MD cc: [id number] TT: 09/08/2016 08:15:22 Confirmation # [id number] Dictation # [id number] elizabeth
--- NOTE | 2016-09-08 08:25 | CP.PCM.PN ---
Subjective - Date & Time of Evaluation Date of Evaluation: 09/08/16 Time of Evaluation: 08:22 - Subjective Subjective: Pt has no problem, is ambulating well, and appetite is good. He has started his RT and will hopefully do well. Objective - Vital Signs/Intake and Output Vital Signs (last 24 hours): Temp Pulse Resp BP Pulse Ox 98.7 F 87 18 122/68 97 09/08/16 08:12 09/08/16 08:12 09/08/16 08:12 09/08/16 08:12 09/08/16 08:12 - Medications Medications: Current Medications Dextrose (Glutose 15) 0 gm PO ONCE PRN; Protocol PRN Reason: Hypoglycemia Protocol Dextrose (Dextrose 50% Inj) 0 ml IV STAT PRN; Protocol PRN Reason: Hyglycemia Protocol Finasteride (Proscar) 5 mg PO DAILY [facility] Last Admin: 09/07/16 08:42 Dose: 5 mg Furosemide (Lasix) 40 mg PO DAILY [facility] Last Admin: 08/22/16 08:50 Dose: 40 mg Glucagon (Glucagen Diagnostic Kit) 0 mg IM STAT PRN; Protocol PRN Reason: Hypoglycemia Protocol Sodium Chloride (Sodium Chloride 0.9%) 1,000 mls @ 0 mls/hr IV .Q0M [facility] PRN Reason: As Directed Insulin Detemir (Levemir) 32 units SC HS@2200 [facility] Insulin Human Regular (Humulin R) 0 units SC ACHS [facility] PRN Reason: Protocol Last Admin: 09/08/16 06:45 Dose: Not Given Lactulose (Enulose) 30 gm PO TID [facility] Last Admin: 09/07/16 15:59 Dose: 30 gm Levothyroxine Sodium (Synthroid) 25 mcg PO 0630 [facility] Last Admin: 09/08/16 06:25 Dose: 25 mcg Nicotine (Nicoderm Cq) 1 patch TD DAILY [facility] Last Admin: 09/07/16 08:44 Dose: 1 patch Pantoprazole Sodium (Protonix Ec Tab) 40 mg PO DAILY [facility] Last Admin: 09/07/16 08:43 Dose: 40 mg Propranolol HCl (Inderal) 10 mg PO TID [facility] Last Admin: 09/07/16 16:00 Dose: 10 mg Risperidone (Risperdal Tab) 2 mg PO HS [facility] Last Admin: 09/07/16 22:27 Dose: 2 mg Spironolactone (Aldactone) 100 mg PO DAILY [facility] Last Admin: 09/07/16 08:44 Dose: 100 mg Tamsulosin HCl (Flomax) 0.4 mg PO [facility] Last Admin: 09/07/16 22:27 Dose: 0.4 mg - Labs Labs: 09/05/16 05:45 09/05/16 05:45 PT 13.8 SECONDS (9.6-11.2) H 08/29/16 06:10 INR 1.33 (0.92-1.08) H 08/29/16 06:10
[2016-09-08] MEDS: Lactulose 10 gm/15 ml Syrup PO SCH ×4 (08:58→16:03)
[2016-09-08] MEDS: Insulin Detemir 100 Units/ml Inj SC SCH ×2 (08:59→21:25)
[2016-09-08] MEDS: Pantoprazole 40 mg EC Tab PO SCH (09:01)
--- NOTE | 2016-09-08 14:17 | CP.PCM.PCO ---
Assessment/Plan - Assessment/Plan Assessment (Free Text): Pt stable, ambulating on unit without distress. Seen and cleared for d/c to [facility] by Dr. Espinoza and Dr. Harris. Pt will continue radiation therapy at [place]. Dr. Harris will follow - Problems Patient Problems: Problem List (Active/Current) Problem Status Priority Diagnosed Code Dehydration Acute E86.0 Schizophrenia Acute F20.9
[2016-09-09] MEDS: Levothyroxine 25 MCG TAB PO SCH (05:30)
[2016-09-09] MEDS: Insulin Regular 100 units/ml SC SCH (06:41)
[2016-09-09 07:02] LABS: BASO % 0.5 % (0.0-2.0); EOS % 1.2 % (0.0-4.0); HEMATOCRIT 29.9 % (35.0-51.0); LYMPH # 0.4 K/uL (1.0-4.3); LYMPH % 12.1 % (20.0-40.0); MEAN CELL VOLUME 88.3 fl (80.0-94.0); MEAN CORPUSCULAR HEMOGLOBIN 29.8 pg (27.0-31.0); MEAN CORPUSCULAR HGB CONC 33.8 g/dL (33.0-37.0); MEAN PLATELET VOLUME 8.5 fl (7.2-11.7); MONO # 0.3 K/uL (0.0-0.8); MONO % 7.8 % (0.0-10.0); NEUT # 2.5 K/uL (1.8-7.0); NEUT % 78.4 % (50.0-75.0); NRBC % 0.1 % (0.0-0.0); RED CELL DISTRIBUTION WIDTH 16.5 % (11.5-14.5); WHITE BLOOD COUNT 3.2 K/uL (4.8-10.8)
[2016-09-09 07:15] LABS: ALB/GLOB RATIO 0.9 (1.0-2.1); ALKALINE PHOSPHATASE 193 U/L (38-126); ALT/SGPT 71 U/L (21-72); AST/SGOT 76 U/L (17-59); BILIRUBIN,TOTAL 1.5 mg/dl (0.2-1.3); BLOOD UREA NITROGEN 36 mg/dl (9-20); CARBON DIOXIDE 16 mmol/L (22-30); CHLORIDE 112 mmol/L (98-107); GFR AFRICAN-AMERICAN > 60; GLUCOSE,RANDOM 115 mg/dL (75-110); POTASSIUM 4.4 MMOL/L (3.6-5.0); SODIUM 141 mmol/l (132-148); TOTAL PROTEIN 6.8 G/DL (6.3-8.2)
[2016-09-09 07:32] VITALS: PULSE 66; RESP 18; TEMP 98; O2SAT 97
--- NOTE | 2016-09-09 08:38 | CP.PCM.DIS ---
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 Hospital Course - Lab Results Lab Results: Most Recent Lab Values WBC 3.2 K/uL (4.8-10.8) L 09/09/16 06:44 RBC 3.38 Mil/uL (4.40-5.90) L 09/09/16 06:44 Hgb 10.1 g/dL (12.0-18.0) L 09/09/16 06:44 Hct 29.9 % (35.0-51.0) L 09/09/16 06:44 MCV 88.3 fl (80.0-94.0) 09/09/16 06:44 MCH 29.8 pg (27.0-31.0) 09/09/16 06:44 MCHC 33.8 g/dL (33.0-37.0) 09/09/16 06:44 RDW 16.5 % (11.5-14.5) H 09/09/16 06:44 Plt Count 33 K/uL (130-400) L 09/09/16 06:44 Manual Plt Count 47 K/uL (130-400) L* 08/19/16 05:30 MPV 8.5 fl (7.2-11.7) 09/09/16 06:44 Neut % (Auto) 78.4 % (50.0-75.0) H 09/09/16 06:44 Lymph % (Auto) 12.1 % (20.0-40.0) L 09/09/16 06:44 Pratt % (Auto) 7.8 % (0.0-10.0) 09/09/16 06:44 Eos % (Auto) 1.2 % (0.0-4.0) 09/09/16 06:44 Baso % (Auto) 0.5 % (0.0-2.0) 09/09/16 06:44 Neut # 2.5 K/uL (1.8-7.0) 09/09/16 06:44 Lymph # 0.4 K/uL (1.0-4.3) L 09/09/16 06:44 Pratt # 0.3 K/uL (0.0-0.8) 09/09/16 06:44 Eos # 0.0 K/uL (0.0-0.7) 09/09/16 06:44 Baso # 0.0 K/uL (0.0-0.2) 09/09/16 06:44 PT 13.8 SECONDS (9.6-11.2) H 08/29/16 06:10 INR 1.33 (0.92-1.08) H 08/29/16 06:10 Sodium 141 mmol/l (132-148) 09/09/16 06:44 Potassium 4.4 MMOL/L (3.6-5.0) 09/09/16 06:44 Chloride 112 mmol/L (98-107) H 09/09/16 06:44 Carbon Dioxide 16 mmol/L (22-30) L 09/09/16 06:44 Anion Gap 17 (10-20) 09/09/16 06:44 BUN 36 mg/dl (9-20) H 09/09/16 06:44 Creatinine 1.2 mg/dL (0.8-1.5) 09/09/16 06:44 Est GFR ( Amer) > 60 09/09/16 06:44 Est GFR (Non-Af Amer) > 60 09/09/16 06:44 POC Glucose (mg/dL) 113 mg/dL (65-110) H 09/09/16 05:55 Random Glucose 115 mg/dL (75-110) H 09/09/16 06:44 Calcium 9.0 mg/dL (8.4-10.2) 09/09/16 06:44 Phosphorus 4.5 mg/dl (2.5-4.5) 08/24/16 06:05 Magnesium 2.0 MG/DL (1.6-2.3) 08/24/16 06:05 Total Bilirubin 1.5 mg/dl (0.2-1.3) H 09/09/16 06:44 AST 76 U/L (17-59) H D 09/09/16 06:44 ALT 71 U/L (21-72) 09/09/16 06:44 Alkaline Phosphatase 193 U/L (38-126) H 09/09/16 06:44 Ammonia 29 umo/L (16-60) 08/15/16 15:43 Total Protein 6.8 G/DL (6.3-8.2) 09/09/16 06:44 Albumin 3.2 g/dL (3.5-5.0) L 09/09/16 06:44 Globulin 3.6 gm/dL (2.2-3.9) 09/09/16 06:44 Albumin/Globulin Ratio 0.9 (1.0-2.1) L 09/09/16 06:44 Urine Opiates Screen Negative (NEGATIVE) 08/15/16 15:43 Urine Methadone Screen Negative (NEGATIVE) 08/15/16 15:43 Ur Barbiturates Screen Negative (NEGATIVE) 08/15/16 15:43 Ur Phencyclidine Scrn Negative (NEGATIVE) 08/15/16 15:43 Ur Amphetamines Screen Negative (NEGATIVE) 08/15/16 15:43 U Benzodiazepines Scrn Negative (NEGATIVE) 08/15/16 15:43 U Oth Cocaine Metabols Negative (NEGATIVE) 08/15/16 15:43 U Cannabinoids Screen Negative (NEGATIVE) 08/15/16 15:43 Alcohol, Quantitative < 10 mg/dl (0-10) 08/15/16 15:43 HCV RNA Genotype LiPA 3a (Not Detected) H 08/18/16 12:44 HCV RNA (PCR) IUs/ml [id number] IU/mL (<15) H 08/16/16 09:29 HCV RNA PCR log IUs/ml 6.67 log IU/mL (<1.18) H 08/16/16 09:29 Blood Type O POSITIVE 08/26/16 08:25 Blood Type Confirm O POSITIVE 08/17/16 21:03 Antibody Screen Negative 08/26/16 08:25 BBK History Checked Patient has bt 08/26/16 08:25 - Hospital Course Hospital Course: 61M admitted for agitation [facility], has been stabilized on appropriate schizophrenia medication and during this admission worked up for RUL mass that was found to be SQCC and has been started on RT. Consultants: Dr Ko Espinoza (Heme /Onc), Dr Worthy (IR), Dr Garcia (GI), Dr Vo (Neurology), Dr Clark/Dr Sanchez (Psychiatry), Dr Hickman (Thoracic Surgery), and Dr Escobar (Pulmonology) all co-managed patient and facilitated the diagnosis of lung ca with appropriate treatment as well as stabilized patient from pulmonary/psych/ cirrhosis aspect. Patient is now stable for discharge to assisted facility. Discharge Exam - Head Exam Head Exam: ATRAUMATIC, NORMAL INSPECTION - Eye Exam Eye Exam: EOMI, Normal appearance - ENT Exam ENT Exam: Mucous Membranes Moist, Normal Exam - Respiratory Exam Respiratory Exam: Clear to PA & Lateral, NORMAL BREATHING PATTERN. absent: Rales, Wheezes - Cardiovascular Exam Cardiovascular Exam: REGULAR RHYTHM. absent: JVD - GI/Abdominal Exam GI & Abdominal Exam: Normal Bowel Sounds, Soft. absent: Tenderness - Extremities Exam Extremities exam: normal capillary refill, pedal pulses present - Neurological Exam Neurological exam: Alert, Oriented x3 - Psychiatric Exam Psychiatric exam: Normal Affect, Normal Mood - Skin Skin Exam: Normal Color, Warm Discharge Plan - Follow Up Plan Condition: FAIR Disposition: TRANSF TO SNF Instructions: Dehydration (DC), Cirrhosis (DC) Referrals: Burke Harris MD [Primary Care Provider] - Jose OWENS,MD Cata [Medical Doctor] - 2 Weeks (HCV, Cirrhosis) <Burke Harris - Last Filed: 09/09/16 15:59> Provider - Provider Date of Admission: 08/16/16 12:07 Attending physician: Burke Harris MD Primary care physician: Burke Harris MD Hospital Course - Lab Results Lab Results: Most Recent Lab Values WBC 3.2 K/uL (4.8-10.8) L 09/09/16 06:44 RBC 3.38 Mil/uL (4.40-5.90) L 09/09/16 06:44 Hgb 10.1 g/dL (12.0-18.0) L 09/09/16 06:44 Hct 29.9 % (35.0-51.0) L 09/09/16 06:44 MCV 88.3 fl (80.0-94.0) 09/09/16 06:44 MCH 29.8 pg (27.0-31.0) 09/09/16 06:44 MCHC 33.8 g/dL (33.0-37.0) 09/09/16 06:44 RDW 16.5 % (11.5-14.5) H 09/09/16 06:44 Plt Count 33 K/uL (130-400) L 09/09/16 06:44 Manual Plt Count 47 K/uL (130-400) L* 08/19/16 05:30 MPV 8.5 fl (7.2-11.7) 09/09/16 06:44 Neut % (Auto) 78.4 % (50.0-75.0) H 09/09/16 06:44 Lymph % (Auto) 12.1 % (20.0-40.0) L 09/09/16 06:44 Pratt % (Auto) 7.8 % (0.0-10.0) 09/09/16 06:44 Eos % (Auto) 1.2 % (0.0-4.0) 09/09/16 06:44 Baso % (Auto) 0.5 % (0.0-2.0) 09/09/16 06:44 Neut # 2.5 K/uL (1.8-7.0) 09/09/16 06:44 Lymph # 0.4 K/uL (1.0-4.3) L 09/09/16 06:44 Pratt # 0.3 K/uL (0.0-0.8) 09/09/16 06:44 Eos # 0.0 K/uL (0.0-0.7) 09/09/16 06:44 Baso # 0.0 K/uL (0.0-0.2) 09/09/16 06:44 PT 13.8 SECONDS (9.6-11.2) H 08/29/16 06:10 INR 1.33 (0.92-1.08) H 08/29/16 06:10 Sodium 141 mmol/l (132-148) 09/09/16 06:44 Potassium 4.4 MMOL/L (3.6-5.0) 09/09/16 06:44 Chloride 112 mmol/L (98-107) H 09/09/16 06:44 Carbon Dioxide 16 mmol/L (22-30) L 09/09/16 06:44 Anion Gap 17 (10-20) 09/09/16 06:44 BUN 36 mg/dl (9-20) H 09/09/16 06:44 Creatinine 1.2 mg/dL (0.8-1.5) 09/09/16 06:44 Est GFR ( Amer) > 60 09/09/16 06:44 Est GFR (Non-Af Amer) > 60 09/09/16 06:44 POC Glucose (mg/dL) 113 mg/dL (65-110) H 09/09/16 05:55 Random Glucose 115 mg/dL (75-110) H 09/09/16 06:44 Calcium 9.0 mg/dL (8.4-10.2) 09/09/16 06:44 Phosphorus 4.5 mg/dl (2.5-4.5) 08/24/16 06:05 Magnesium 2.0 MG/DL (1.6-2.3) 08/24/16 06:05 Total Bilirubin 1.5 mg/dl (0.2-1.3) H 09/09/16 06:44 AST 76 U/L (17-59) H D 09/09/16 06:44 ALT 71 U/L (21-72) 09/09/16 06:44 Alkaline Phosphatase 193 U/L (38-126) H 09/09/16 06:44 Ammonia 29 umo/L (16-60) 08/15/16 15:43 Total Protein 6.8 G/DL (6.3-8.2) 09/09/16 06:44 Albumin 3.2 g/dL (3.5-5.0) L 09/09/16 06:44 Globulin 3.6 gm/dL (2.2-3.9) 09/09/16 06:44 Albumin/Globulin Ratio 0.9 (1.0-2.1) L 09/09/16 06:44 Urine Opiates Screen Negative (NEGATIVE) 08/15/16 15:43 Urine Methadone Screen Negative (NEGATIVE) 08/15/16 15:43 Ur Barbiturates Screen Negative (NEGATIVE) 08/15/16 15:43 Ur Phencyclidine Scrn Negative (NEGATIVE) 08/15/16 15:43 Ur Amphetamines Screen Negative (NEGATIVE) 08/15/16 15:43 U Benzodiazepines Scrn Negative (NEGATIVE) 08/15/16 15:43 U Oth Cocaine Metabols Negative (NEGATIVE) 08/15/16 15:43 U Cannabinoids Screen Negative (NEGATIVE) 08/15/16 15:43 Alcohol, Quantitative < 10 mg/dl (0-10) 08/15/16 15:43 HCV RNA Genotype LiPA 3a (Not Detected) H 08/18/16 12:44 HCV RNA (PCR) IUs/ml [id number] IU/mL (<15) H 08/16/16 09:29 HCV RNA PCR log IUs/ml 6.67 log IU/mL (<1.18) H 08/16/16 09:29 Blood Type O POSITIVE 08/26/16 08:25 Blood Type Confirm O POSITIVE 08/17/16 21:03 Antibody Screen Negative 08/26/16 08:25 BBK History Checked Patient has bt 08/26/16 08:25
[2016-09-09] MEDS: Lactulose 10 gm/15 ml Syrup PO SCH (09:44)
[2016-09-09] MEDS: Pantoprazole 40 mg EC Tab PO SCH (09:45)
[2016-09-09 09:46] VITALS: BP 164/88
--- NOTE | 2016-09-09 11:36 | CP.PCM.PN ---
Subjective - Date & Time of Evaluation Date of Evaluation: 09/09/16 Time of Evaluation: 11:35 - Subjective Subjective: Pt is being discharged today to [facility]. He will continue RT from there. He will see me after the rT is done. Objective - Vital Signs/Intake and Output Vital Signs (last 24 hours): Temp Pulse Resp BP Pulse Ox 98.0 F 66 18 164/88 H 97 09/09/16 07:32 09/09/16 09:45 09/09/16 07:32 09/09/16 09:45 09/09/16 07:32 - Medications Medications: Current Medications Dextrose (Glutose 15) 0 gm PO ONCE PRN; Protocol PRN Reason: Hypoglycemia Protocol Dextrose (Dextrose 50% Inj) 0 ml IV STAT PRN; Protocol PRN Reason: Hyglycemia Protocol Finasteride (Proscar) 5 mg PO DAILY [facility] Last Admin: 09/09/16 09:46 Dose: 5 mg Furosemide (Lasix) 40 mg PO DAILY [facility] Last Admin: 08/22/16 08:50 Dose: 40 mg Glucagon (Glucagen Diagnostic Kit) 0 mg IM STAT PRN; Protocol PRN Reason: Hypoglycemia Protocol Sodium Chloride (Sodium Chloride 0.9%) 1,000 mls @ 0 mls/hr IV .Q0M [facility] PRN Reason: As Directed Insulin Detemir (Levemir) 32 units SC HS@2200 [facility] Last Admin: 09/08/16 21:25 Dose: 32 u Insulin Human Regular (Humulin R) 0 units SC ACHS [facility] PRN Reason: Protocol Last Admin: 09/09/16 06:41 Dose: Not Given Lactulose (Enulose) 30 gm PO TID [facility] Last Admin: 09/09/16 09:44 Dose: 30 gm Levothyroxine Sodium (Synthroid) 25 mcg PO 0630 [facility] Last Admin: 09/09/16 05:30 Dose: 25 mcg Nicotine (Nicoderm Cq) 1 patch TD DAILY [facility] Last Admin: 09/09/16 09:50 Dose: 1 patch Pantoprazole Sodium (Protonix Ec Tab) 40 mg PO DAILY [facility] Last Admin: 09/09/16 09:45 Dose: 40 mg Propranolol HCl (Inderal) 10 mg PO TID [facility] Last Admin: 09/09/16 09:45 Dose: 10 mg Risperidone (Risperdal Tab) 2 mg PO HS [facility] Last Admin: 09/08/16 21:24 Dose: 2 mg Spironolactone (Aldactone) 100 mg PO DAILY [facility] Last Admin: 09/09/16 09:45 Dose: 100 mg Tamsulosin HCl (Flomax) 0.4 mg PO [facility] Last Admin: 09/08/16 21:24 Dose: 0.4 mg - Labs Labs: 09/09/16 06:44 09/09/16 06:44 PT 13.8 SECONDS (9.6-11.2) H 08/29/16 06:10 INR 1.33 (0.92-1.08) H 08/29/16 06:10
== END 2016-09-09 12:44 | DRG 181 ==
LOC: H.ER 14:23 → H.ERHOLD 16:33 → H.MEDSURG1 23:39 → OBSVTOIN 08-16 12:07 → H.MEDSURG1 08-19 21:21
PROVIDERS: ADMIT Internal Medicine; ATTEND Internal Medicine
PROC: 30233R1 Transfusion of Nonautologous Platelets into Peripheral Vein, Percutaneous Approach (ICD-10-PCS; 2016-08-18)
PROC: 30233M1 Transfusion of Nonautologous Plasma Cryoprecipitate into Peripheral Vein, Percutaneous Approach (ICD-10-PCS; 2016-08-18)
PROC: 0BBK3ZX Excision of Right Lung, Percutaneous Approach, Diagnostic (ICD-10-PCS; principal; 2016-08-29 13:00)
PROC: DBY27ZZ Contact Radiation of Lung (ICD-10-PCS; 2016-09-07)
DX: C34.90 Malignant neoplasm of unspecified part of unspecified bronchus or lung (principal); D61.818 Other pancytopenia; I85.00 Esophageal varices without bleeding; K76.6 Portal hypertension; D69.6 Thrombocytopenia, unspecified; E11.22 Type 2 diabetes mellitus with diabetic chronic kidney disease; F20.9 Schizophrenia, unspecified; E86.0 Dehydration; J44.9 Chronic obstructive pulmonary disease, unspecified; K70.31 Alcoholic cirrhosis of liver with ascites; G30.9 Alzheimer's disease, unspecified; F02.80 Dementia in other diseases classified elsewhere, unspecified severity, without behavioral disturbance, psychotic disturbance, mood disturbance, and anxiety; Z85.46 Personal history of malignant neoplasm of prostate; E78.00 Pure hypercholesterolemia, unspecified; F17.200 Nicotine dependence, unspecified, uncomplicated; J45.909 Unspecified asthma, uncomplicated; G40.909 Epilepsy, unspecified, not intractable, without status epilepticus; I12.9 Hypertensive chronic kidney disease with stage 1 through stage 4 chronic kidney disease, or unspecified chronic kidney disease; N18.2 Chronic kidney disease, stage 2 (mild); E03.9 Hypothyroidism, unspecified; Z59.0 Homelessness; Z86.19 Personal history of other infectious and parasitic diseases; D64.9 Anemia, unspecified; K59.00 Constipation, unspecified; D73.1 Hypersplenism; F31.9 Bipolar disorder, unspecified; F10.21 Alcohol dependence, in remission; I25.10 Atherosclerotic heart disease of native coronary artery without angina pectoris; K29.00 Acute gastritis without bleeding; K29.50 Unspecified chronic gastritis without bleeding; K72.90 Hepatic failure, unspecified without coma